=== PATIENT | male | born 1990 | race Caucasian/White ===

== ENCOUNTER 2020-06-19 07:05 | Emergency (ER) | payer MEDICAID, SELFPAY ==
[2020-06-19 07:11] VITALS: BP 126/75; PULSE 87; RESP 18; TEMP 36.9; O2SAT 97; BMI 64.5
--- NOTE | 2020-06-19 07:26 | CTR_ITS ---
PROCEDURE INFORMATION: Exam: CT Abdomen And Pelvis With Contrast Exam date and time: 06/19/2020 7:46 AM Age: 30 years old Clinical indication: Abdominal pain; Generalized; Prior surgery; Surgery date: 6+ months; Surgery type: Appy; Additional info: Abdominal pain, fever TECHNIQUE: Imaging protocol: Computed tomography of the abdomen and pelvis with intravenous contrast. Radiation optimization: All CT scans at this facility use at least one of these dose optimization techniques: automated exposure control; mA and/or kV adjustment per patient size (includes targeted exams where dose is matched to clinical indication); or iterative reconstruction. Contrast material: OMNIPAQUE 300; Contrast volume: 95 ml; Contrast route: INTRAVENOUS (IV); COMPARISON: No relevant prior studies available. RADIATION DOSE METRICS: Total DLP (mGy-cm): 1908.61 FINDINGS: Lungs: No acute findings within the included inferior thorax. Punctate right lower lobe calcified granuloma incidentally noted. Liver: Mild diffuse hepatic steatosis. No hepatomegaly. No focal lesions identified. Gallbladder and bile ducts: Normal. No calcified stones. No ductal dilation. Pancreas: Normal. No ductal dilation. Spleen: Normal. No splenomegaly. Adrenals: Normal. No mass. Kidneys and ureters: There is excreted contrast within the bilateral renal collecting systems and portions of the ureters, limiting evaluation for calculi. No hydronephrosis. Symmetrical renal enhancement with no masses. Stomach and bowel: No obstruction. No inflammatory changes. Appendix: Evidence of appendectomy. Intraperitoneal space: No free air. No significant fluid collection. Vasculature: Unremarkable. No abdominal aortic aneurysm. Lymph nodes: Unremarkable. No enlarged lymph nodes. Bladder: The bladder is minimally filled. No stones. Reproductive: Unremarkable as visualized. Bones/joints: No acute or aggressive osseous lesion. Soft tissues: Unremarkable. CT/CT abdomen pelvis w con* [id number] IMPRESSION: No acute findings. Radiation Dose CTDIVOL = (mGy): DLP = 1908.61 (mGy-cm)
[2020-06-19 07:39] VITALS: BP 137/79; PULSE 90; RESP 18; TEMP 37.2; O2SAT 100
--- NOTE | 2020-06-19 07:47 | ED_ITS ---
HPI - Abdominal Pain General: Chief Complaint: Abdominal Pain Stated Complaint: abd pain Time Seen by Provider: 06/19/20 07:16 History of Present Illness: HPI narrative: This patient is a 30-year-old male who presents today with abdominal pain. He said it started 2 days ago. He says that before he started having the abdominal symptoms he had gone to the dentist to have a tooth checked and they told him he had a fever of 101. He denies feeling like he had a fever and said he checked his own temperature at home and it was normal. He does say though that he has been hot and cold and having sweats. He denies cough or shortness of breath. He denies diarrhea. He has had nausea but no vomiting. He said his pain is mostly located in the left upper quadrant. It never really goes away except for one time when he went about 6 hours without eating. He said he felt fine then but ate some container of yogurt and a couple of mini muffins and the pain came back. The pain seems to start about 30 minutes after he eats anything and sometimes radiates to the right upper quadrant as well. MD elicited complaint: abdominal pain Pertinent past history: constipation Onset (ago): day(s) (2) Pain Consistency: constant Severity: severe Quality: cramping, aching and fullness Radiation: RUQ Migration to: no migration Exacerbating factors: eating Relieving factors: other (Not eating) Associated Symptoms: Reports no associated symptoms, chills, fever(s) (Possibly) and nausea; Denies change in bowel habits and vomiting Review of Systems General: Reports: 10 or more systems reviewed and unremarkable except in HPI and below Const: Reports: fever(s) (Possibly) and chills; Denies: fatigue or malaise Eyes: Denies: change in vision ENMT: Denies: odynophagia Card: Denies: chest pain or swelling of feet/ankles Resp: Denies: dyspnea, productive cough or non-productive cough GI: Reports: abdominal pain and nausea; Denies: vomiting or change in bowel habits : Reports: urinary frequency; Denies: flank pain Musc: Denies: neck pain or back pain Skin/Breast: Denies: rash Neuro: Denies: headache(s), numbness in extremities or weakness in extremities Johnny/Lymph: Denies: easy bruising or easy bleeding PFSH ED PFSH: Medical History Morbid obesity Surgical History H/O circumcision H/O hemorrhoidectomy History of tonsillectomy and adenoidectomy Hx of appendectomy Family History Family/Other Cancer breast cancer Other Anesthesia complication CAD (coronary artery disease) Diabetes Denies family history of Bleeding disorder Social History Smoking and tobacco status: never smoked Alcohol intake: never Household members: family Marital status: Single Current occupational status: disabled History of recent travel: No Physical Exam Const: COMMON NORMALS: no acute distress, patient oriented x3, no limitations and alert GENERAL APPEARANCE: cooperative and comfortable HENMT: HEAD & SCALP: normal to inspection FACE & SINUS: normal facial exam Eye: GENERAL EYE: appearance normal, both eyes and all related structures Neck/C-Spine: COMMON NORMALS: supple, no meningeal signs and no JVD Chest: COMMONS NORMALS: normal inspection of the chest Resp: COMMON NORMALS: normal respiratory effort, No use of accessory muscles and clear to auscultation bilaterally AUSCULTATION: clear to auscultation bilaterally Cardio: COMMON NORMALS: no JVD, regular rate, regular rhythm and No murmurs present (Cardio) RATE: regular rate RHYTHM: regular rhythm GI: COMMON NORMALS: Normal to inspection, nondistended, normoactive bowel sounds present, Soft to palpation and non-tender INSPECTION: Yes normal to inspection AUSCULTATION: Yes normoactive bowel sounds PALPATION: Yes Soft to palpation Back/Pelvis: COMMON NORMALS: thoracic and lumbar spine normal to inspection Extremity: COMMON NORMALS: normal to inspection Neuro: COMMON NORMALS: patient oriented x3, moves all extremities, no focal motor deficits and no sensory deficits noted SENSORIUM/ORIENTATION: Yes alert MENINGEAL SIGNS: Yes no meningeal signs Psych: COMMON NORMALS: mental status grossly normal, cooperative and normal affect Skin: COMMON NORMALS: no rashes or lesions noted and turgor normal GENERAL SKIN EXAM: no rashes or lesions noted and turgor normal Course ED course: Patient had a negative CT scan. Labs were unremarkable. His exam is unremarkable. We discussed that this could be some irritation in his stomach as it is generally the location of most of his pain. He also has worsening of his symptoms shortly after he eats. He was instructed to increase his omeprazole to 40 mg a day and to follow-up with his primary care doctor. He also has a colonoscopy scheduled early next month with Dr. Caicedo and I suggested that he ask about having an upper endoscopy as well. Vital Signs: Vital signs: Vital Signs Temperature 98.7 F 06/19/20 10:00 Pulse Rate 82 06/19/20 10:32 Respiratory Rate 20 H 06/19/20 10:32 Blood Pressure 147/86 06/19/20 10:32 Pulse Oximetry 96 06/19/20 10:32 MDM - Abdominal Pain Lab Data: Labs: Lab Results 06/19/20 06/19/20 06/19/20 Range/Units 07:35 07:35 07:35 WBC 11.1 H (4.0-10.0) 10^3/ uL RBC 4.63 (4.1-5.3) 10^6/u L Hgb 13.1 (11.7-16.6) g/dL Hct 41.4 L (42.0-52.0) % MCV 89.4 (80-94) fL MCH 28.3 (28.0-34.0) pg MCHC 31.6 (30.0-36.0) g/dL RDW 13.2 (12.1-15.1) % Plt Count 280 (130-400) 10^3/c mm MPV 11.6 H (7.4-10.4) fL Neut % (Auto) 63.9 % Lymph % (Auto) 23.9 % [place] % (Auto) 9.8 % Eos % (Auto) 1.7 % Baso % (Auto) 0.4 % Neut # (Auto) 7.10 (1.8-7.7) 10^3/u L Lymph # (Auto) 2.7 (0.8-4.8) 10^3/u L [place] # (Auto) 1.1 H (0.2-0.9) 10^3/u L Eos # (Auto) 0.2 (0.0-0.8) 10^3/u L Baso # (Auto) 0.0 (0.0-0.1) 10^3/u L Nucleated RBC % (a uto) 0 % Nucleated RBCs # 0.0 /100WBC Sodium 138 (136-145) mmol/L Potassium 4.2 (3.5-5.1) mmol/L Chloride 104 (98-107) mmol/L Carbon Dioxide 27 (22-29) mmol/L Anion Gap 11.2 (5-19) BUN 11 (6-20) mg/dL Creatinine 1.0 (0.7-1.2) mg/dL GFR Calculation 86.6 L (90-130) mL/min Glucose 113 (65-115) mg/dL Calculated Osmolal ity 286 (285-295) mOsm/k g Lactic Acid 0.8 (0.5-2.2) mmol/L Calcium 9.4 (8.5-10.5) mg/dL Total Bilirubin 0.3 (0.15-1.2) mg/dL AST 20 (0-40) U/L ALT 30 (0-41) U/L Alkaline Phosphata se 75 (40-130) IU/L Total Protein 7.5 (6.6-8.7) g/dL Albumin 4.0 (3.5-5.2) g/dL Globulin 3.5 (1.3-4.6) g/dL Lipase 18 (13-60) U/L Urine Color (Yellow) Urine Appearance (CLEAR) Urine pH (5-7) Ur Specific Gravit y (1.005-1.030) Urine Protein (Negative) Urine Glucose (UA) (Normal) Urine Ketones (Negative) Urine Blood (Negative) Urine Nitrate (Negative) Urine Bilirubin (Negative) Urine Urobilinogen (Negative) mg/dL Ur Leukocyte Odalys ase (Negative) 06/19/20 Range/Units 08:00 WBC (4.0-10.0) 10^3/ uL RBC (4.1-5.3) 10^6/u L Hgb (11.7-16.6) g/dL Hct (42.0-52.0) % MCV (80-94) fL MCH (28.0-34.0) pg MCHC (30.0-36.0) g/dL RDW (12.1-15.1) % Plt Count (130-400) 10^3/c mm MPV (7.4-10.4) fL Neut % (Auto) % Lymph % (Auto) % [place] % (Auto) % Eos % (Auto) % Baso % (Auto) % Neut # (Auto) (1.8-7.7) 10^3/u L Lymph # (Auto) (0.8-4.8) 10^3/u L [place] # (Auto) (0.2-0.9) 10^3/u L Eos # (Auto) (0.0-0.8) 10^3/u L Baso # (Auto) (0.0-0.1) 10^3/u L Nucleated RBC % (a uto) % Nucleated RBCs # /100WBC Sodium (136-145) mmol/L Potassium (3.5-5.1) mmol/L Chloride (98-107) mmol/L Carbon Dioxide (22-29) mmol/L Anion Gap (5-19) BUN (6-20) mg/dL Creatinine (0.7-1.2) mg/dL GFR Calculation (90-130) mL/min Glucose (65-115) mg/dL Calculated Osmolal ity (285-295) mOsm/k g Lactic Acid (0.5-2.2) mmol/L Calcium (8.5-10.5) mg/dL Total Bilirubin (0.15-1.2) mg/dL AST (0-40) U/L ALT (0-41) U/L Alkaline Phosphata se (40-130) IU/L Total Protein (6.6-8.7) g/dL Albumin (3.5-5.2) g/dL Globulin (1.3-4.6) g/dL Lipase (13-60) U/L Urine Color Yellow (Yellow) Urine Appearance Clear (CLEAR) Urine pH 6.5 (5-7) Ur Specific Gravit y 1.015 (1.005-1.030) Urine Protein Neg (Negative) Urine Glucose (UA) Norm (Normal) Urine Ketones Negative (Negative) Urine Blood Neg (Negative) Urine Nitrate Negative (Negative) Urine Bilirubin Neg (Negative) Urine Urobilinogen Norm (Negative) mg/dL Ur Leukocyte Odalys ase Negative (Negative) Discharge Plan Discharge Patient Disposition: Home Clinical Impression: Abdominal pain Qualifiers: Abdominal location: left lower quadrant Qualified Code(s): R10.32 - Left lower quadrant pain Condition: Stable Prescriptions: No Action effexor PO RF: 0 All Day Allergy (cetirizine) 10 mg capsule 10 mg PO DAILY RF: 0 omeprazole 20 mg capsule,delayed release(DR/EC) 20 mg PO DAILY RF: 0 hydrocortisone acetate 25 mg suppository 25 mg [place] DAILY PRN (Reason: hemorrhoids) Qty: 12 RF: 0 Metamucil 3.4 gram/5.4 gram powder 1 tbsp PO DAILY Qty: 660 RF: 0 docusate sodium [Colace] 100 mg capsule 100 mg PO BID Qty: 60 RF: 0 lactulose 10 gram/15 mL solution 10 gm PO DAILY Qty: 473 RF: 0 ondansetron 4 mg tablet,disintegrating 4 mg PO Q8H Qty: 30 RF: 0 Carafate 100 mg/mL suspension 1 gm PO Q6H Qty: 420 RF: 0 Discharge Orders: Discharge Order (Routine); Ordered 06/19/20 Ordered By: Jaz Martins Referrals: Tawny Cazares APN [Primary Care Provider] - Discharge Diet: Clear Liquid Discharge Activity: Resume usual activity Patient Instructions: Abdominal Pain (ED) Activity Restrictions/Additional Instructions: Stick to a clear liquid diet for the next 24 hours. After that if you are feeling better you can increase to a bland diet. If your pain continues even with the clear liquid diet and return to the ED for further evaluation. Follow- up with your doctor or Dr. Caicedo for further evaluation if symptoms continue. Discharge Date/Time: 06/19/20 10:29 Coding Level of Care Code ED Deboner for Deborah Fwd Exam Comprehensive
[2020-06-19 07:48] LABS: Basophils % 0.4 %; Eosinophils # 0.2 10^3/uL (0.0-0.8); Eosinophils % 1.7 %; Hematocrit 41.4 % (42.0-52.0); Hemoglobin 13.1 g/dL (11.7-16.6); Lymphocytes # 2.7 10^3/uL (0.8-4.8); Lymphocytes % 23.9 %; Mean Corpuscular HGB Conc 31.6 g/dL (30.0-36.0); Mean Corpuscular Hemoglobin 28.3 pg (28.0-34.0); Mean Corpuscular Volume 89.4 fL (80-94); Mean Platelet Volume 11.6 fL (7.4-10.4); Monocytes # 1.1 10^3/uL (0.2-0.9); Monocytes % 9.8 %; Neutrophils % 63.9 %; Nucleated Red Blood Cells % 0 %; Platelet Count 280 10^3/cmm (130-400); Red Blood Count 4.63 10^6/uL (4.1-5.3); Red Cell Distribution Width 13.2 % (12.1-15.1); White Blood Count 11.1 10^3/uL (4.0-10.0)
[2020-06-19 08:07] VITALS: BP 131/79; O2SAT 100
[2020-06-19 08:14] LABS: Lactic Sepsis W/Reflex 0.8 mmol/L (0.5-2.2)
[2020-06-19] MEDS: iohexol 300 mg/mL 100 mL Btl IV (08:14)
[2020-06-19 08:15] LABS: Alanine Aminotransferase 30 U/L (0-41); Alkaline Phosphatase 75 IU/L (40-130); Anion Gap 11.2 (5-19); Aspartate Amino Transferase 20 U/L (0-40); Blood Urea Nitrogen 11 mg/dL (6-20); Calcium 9.4 mg/dL (8.5-10.5); Carbon Dioxide 27 mmol/L (22-29); Chloride 104 mmol/L (98-107); Globulin 3.5 g/dL (1.3-4.6); Glomerular Filtration Rate 86.6 mL/min (90-130); Glucose 113 mg/dL (65-115); Lipase 18 U/L (13-60); Osmolality Calculated 286 mOsm/kg (285-295); Potassium 4.2 mmol/L (3.5-5.1); Sodium 138 mmol/L (136-145); Total Bilirubin 0.3 mg/dL (0.15-1.2); Total Protein 7.5 g/dL (6.6-8.7)
[2020-06-19 09:36] LABS: Add Urine Microscopic? NO
[2020-06-19 09:59] VITALS: BP 161/96; PULSE 75; RESP 18; TEMP 37.1; O2SAT 99
[2020-06-19 09:59] LABS: Bilirubin Urine Neg (Negative); Blood Urine Neg (Negative); Glucose Urine UA Norm (Normal); Ketones Urine Negative (Negative); Leukocyte Esterase Urine Negative (Negative); Nitrate Urine Negative (Negative); Protein Urine Neg (Negative); Specific Gravity, Urine 1.015 (1.005-1.030); Urine Appearance Clear (CLEAR); Urine Color Yellow (Yellow); Urobilinogen Urine Norm (Negative); pH Urine 6.5 (5-7)
[2020-06-19 10:00] VITALS: BP 161/96; PULSE 81; RESP 18; TEMP 37.1; O2SAT 100
[2020-06-19 10:32] VITALS: BP 147/86; PULSE 82; RESP 20; O2SAT 96
== END 2020-06-19 10:29 | disposition home or self-care (01) ==
PROVIDERS: Emergency Provider Emergency Medicine; PCP Nurse Practitioner
DX: R10.32 Left lower quadrant pain (principal)
CPT/HCPCS: 12345; 74177; 80053; 81003; 83605; 83690; 85025; 99283; Q9967

== ENCOUNTER 2020-06-20 05:25 | Emergency (ER) | payer MEDICAID, SELFPAY ==
[2020-06-20 05:34] VITALS: BP 155/106; RESP 24; TEMP 36.9; O2SAT 100; BMI 65.3
[2020-06-20] MEDS: ondansetron 2 mg/ML SDV 2 mL 4 MG IVP (06:30)
[2020-06-20 06:40] VITALS: RESP 18; O2SAT 100
[2020-06-20] MEDS: morphine 4 mg/mL SDV 1 mL IVP (06:40)
[2020-06-20 06:44] LABS: Basophils % 0.2 %; Eosinophils # 0.1 10^3/uL (0.0-0.8); Eosinophils % 0.8 %; Hematocrit 39.9 % (42.0-52.0); Hemoglobin 12.7 g/dL (11.7-16.6); Lymphocytes # 1.7 10^3/uL (0.8-4.8); Lymphocytes % 13.8 %; Mean Corpuscular HGB Conc 31.8 g/dL (30.0-36.0); Mean Corpuscular Hemoglobin 28.2 pg (28.0-34.0); Mean Corpuscular Volume 88.7 fL (80-94); Mean Platelet Volume 11.7 fL (7.4-10.4); Monocytes # 0.9 10^3/uL (0.2-0.9); Monocytes % 7.5 %; Neutrophils # 9.56 10^3/uL (1.8-7.7); Neutrophils % 77.4 %; Nucleated Red Blood Cells % 0 %; Platelet Count 269 10^3/cmm (130-400); Red Cell Distribution Width 13.1 % (12.1-15.1); White Blood Count 12.4 10^3/uL (4.0-10.0)
[2020-06-20 06:53] LABS: Alanine Aminotransferase 30 U/L (0-41); Albumin Level 4.1 g/dL (3.5-5.2); Alkaline Phosphatase 80 IU/L (40-130); Anion Gap 14.9 (5-19); Aspartate Amino Transferase 18 U/L (0-40); Blood Urea Nitrogen 9 mg/dL (6-20); Calcium 9.3 mg/dL (8.5-10.5); Carbon Dioxide 24 mmol/L (22-29); Chloride 102 mmol/L (98-107); Globulin 3.4 g/dL (1.3-4.6); Glomerular Filtration Rate 97.8 mL/min (90-130); Glucose 113 mg/dL (65-115); Lipase 14 U/L (13-60); Osmolality Calculated 283 mOsm/kg (285-295); Potassium 3.9 mmol/L (3.5-5.1); Sodium 137 mmol/L (136-145); Total Bilirubin 0.6 mg/dL (0.15-1.2); Total Protein 7.5 g/dL (6.6-8.7)
--- NOTE | 2020-06-20 07:07 | W.ED.ABDPA2 ---
HPI - Abdominal Pain General: Chief Complaint: Abdominal Pain Stated Complaint: abd pain Time Seen by Provider: 06/20/20 07:06 History of Present Illness: HPI narrative: Patient is a 30-year-old male who comes to the ED with abdominal pain and nausea. Symptoms started approximately 2 to 3 days ago. Patient was seen here in the ED yesterday June [address] the abdomen were performed and there is no acute findings on the CT image. Patient was told to go on a clear liquid diet to stop the Pepto-Bismol. Patient says he did not stop taking the Pepto-Bismol but he has stuck to his clear liquid diet denies that he had increased abdominal pain or nausea decided to come back into the ED for reevaluation. He rates his abdominal pain 5 and his nausea 6 out of 10. He states that his nausea is worse than his abdominal pain. He says he is some problems with constipation over the past 2 months states that his last bowel movement he had was last night and it was hard and skinny in appearance. Patient does have planned endoscopic and colonoscopy on July 08. Denies any fever, chills, diarrhea, emesis, dysuria or hematuria. Associated Symptoms: Reports nausea; Denies chills, constipation, diarrhea, dysuria, fever(s), hematochezia, hematuria and vomiting Review of Systems Const: Denies: fever(s), chills or fatigue Eyes: Denies: change in vision or eye discomfort ENMT: Denies: throat pain, odynophagia, nasal discharge or nasal congestion Card: Denies: chest pain, palpitations, edema, swelling of feet/ankles, dyspnea on exertion or orthopnea Resp: Denies: dyspnea, productive cough or non-productive cough GI: Reports: abdominal pain and nausea; Denies: vomiting, diarrhea, constipation or hematochezia : Denies: flank pain, difficulty urinating, dysuria or hematuria Musc: Denies: neck pain, back pain or extremity swelling Skin/Breast: Denies: rash or new lesions Neuro: Denies: headache(s), numbness in extremities or weakness in extremities [facility] ED PFSH: Medical History Morbid obesity Surgical History H/O circumcision H/O hemorrhoidectomy History of tonsillectomy and adenoidectomy Hx of appendectomy Family History Family/Other Cancer breast cancer Other Anesthesia complication CAD (coronary artery disease) Diabetes Denies family history of Bleeding disorder Social History Smoking and tobacco status: never smoked Alcohol intake: never Household members: family Marital status: Single Current occupational status: disabled History of recent travel: No Physical Exam Const: COMMON NORMALS: no acute distress, patient oriented x3 and alert GENERAL APPEARANCE: cooperative and comfortable NUTRITIONAL APPEARANCE: obese morbidly obese HENMT: COMMON NORMALS: normocephalic HEAD & SCALP: normocephalic MOUTH: Normal oral and palatal mucosa present THROAT: posterior oropharynx normal and uvula midline Eye: COMMON NORMALS: Equal, round and reactive pupils present PUPIL: Yes Equal, round and reactive pupils present Neck/C-Spine: COMMON NORMALS: supple GENERAL: Yes normal visual inspection Resp: COMMON NORMALS: normal respiratory effort, No retractions, No use of accessory muscles and clear to auscultation bilaterally AUSCULTATION: clear to auscultation bilaterally Cardio: COMMON NORMALS: regular rate, regular rhythm, S1 normal heart sound present, S2 normal heart sound present, No gallops present (Cardio), No clicks present (Cardio), No murmurs present (Cardio) and Peripheral pulses 2+ throughout RATE: regular rate RHYTHM: regular rhythm HEART SOUNDS: S1 normal heart sound present and S2 normal heart sound present PERIPHERAL PULSES: Peripheral pulses 2+ throughout GI: COMMON NORMALS: Normal to inspection, nondistended, normoactive bowel sounds present, Soft to palpation and no masses INSPECTION: Yes central obesity PALPATION: Yes Soft to palpation and Yes Tenderness to palpation present (GI) (mild) Details: LLQ and LUQ : COMMON NORMALS: Yes no CVA tenderness BLADDER/KIDNEY EXAM: Yes no CVA tenderness Back/Pelvis: COMMON NORMALS: no CVA tenderness Extremity: COMMON NORMALS: normal to inspection Neuro: COMMON NORMALS: patient oriented x3 SENSORIUM/ORIENTATION: Yes alert GAIT: Yes Normal gait present Skin: COMMON NORMALS: no rashes or lesions noted GENERAL SKIN EXAM: no rashes or lesions noted and dry skin Course Reevaluation(s): Reevaluation #1: Patient was given morphine and Zofran via IV and his symptoms improved greatly. He rates his nausea is a 2 out of 10 and his abdominal pain is a 1 out of 10. Vital Signs: Vital signs: Vital Signs Temperature 98.5 F 06/20/20 05:34 Pulse Rate 83 06/20/20 08:38 Respiratory Rate 18 06/20/20 08:38 Blood Pressure 137/73 06/20/20 08:38 Pulse Oximetry 98 06/20/20 08:38 MDM - Abdominal Pain MDM Narrative: Medical decision making narrative: Patient is a 30-year-old male who comes to the ED with some abdominal pain and nausea. Patient was seen yesterday on June [address] of the abdomen were performed and showed no acute findings. Today patient's labs are relatively unchanged compared to yesterday's. He has a scheduled colonoscopy and endoscopy on July 08. Patient's pain and nausea improved while here in the ED after treatment. Patient was discharged with abdominal pain and sent home with a prescription for Carafate and Zofran. Follow-up with your PCP in 7 to 10 days for reevaluation. Return to ED precautions given. Patient understood and agree with plan. Lab Data: Attestation: I reviewed the patient's lab results. Labs: Lab Results 06/20/20 06/20/20 Range/Units 06:15 06:15 WBC 12.4 H (4.0-10.0) 10^3/ uL RBC 4.50 (4.1-5.3) 10^6/u L Hgb 12.7 (11.7-16.6) g/dL Hct 39.9 L (42.0-52.0) % MCV 88.7 (80-94) fL MCH 28.2 (28.0-34.0) pg MCHC 31.8 (30.0-36.0) g/dL RDW 13.1 (12.1-15.1) % Plt Count 269 (130-400) 10^3/c mm MPV 11.7 H (7.4-10.4) fL Neut % (Auto) 77.4 % Lymph % (Auto) 13.8 % [place] % (Auto) 7.5 % Eos % (Auto) 0.8 % Baso % (Auto) 0.2 % Neut # (Auto) 9.56 H (1.8-7.7) 10^3/u L Lymph # (Auto) 1.7 (0.8-4.8) 10^3/u L [place] # (Auto) 0.9 (0.2-0.9) 10^3/u L Eos # (Auto) 0.1 (0.0-0.8) 10^3/u L Baso # (Auto) 0.0 (0.0-0.1) 10^3/u L Nucleated RBC % (a uto) 0 % Nucleated RBCs # 0.0 /100WBC Sodium 137 (136-145) mmol/L Potassium 3.9 (3.5-5.1) mmol/L Chloride 102 (98-107) mmol/L Carbon Dioxide 24 (22-29) mmol/L Anion Gap 14.9 (5-19) BUN 9 (6-20) mg/dL Creatinine 0.9 (0.7-1.2) mg/dL GFR Calculation 97.8 (90-130) mL/min Glucose 113 (65-115) mg/dL Calculated Osmolal ity 283 L (285-295) mOsm/k g Calcium 9.3 (8.5-10.5) mg/dL Total Bilirubin 0.6 (0.15-1.2) mg/dL AST 18 (0-40) U/L ALT 30 (0-41) U/L Alkaline Phosphata se 80 (40-130) IU/L Total Protein 7.5 (6.6-8.7) g/dL Albumin 4.1 (3.5-5.2) g/dL Globulin 3.4 (1.3-4.6) g/dL Lipase 14 (13-60) U/L Discharge Plan Discharge Patient Disposition: Home Clinical Impression: Abdominal pain Qualifiers: Abdominal location: left lower quadrant Qualified Code(s): R10.32 - Left lower quadrant pain Constipation Qualifiers: Constipation type: unspecified constipation type Qualified Code(s): K59.00 - Constipation, unspecified Condition: Stable Prescriptions: New ondansetron 4 mg tablet,disintegrating 4 mg PO Q8H Qty: 30 RF: 0 Carafate 100 mg/mL suspension 1 gm PO Q6H Qty: 420 RF: 0 No Action effexor PO RF: 0 All Day Allergy (cetirizine) 10 mg capsule 10 mg PO DAILY RF: 0 omeprazole 20 mg capsule,delayed release(DR/EC) 20 mg PO DAILY RF: 0 hydrocortisone acetate 25 mg suppository 25 mg [place] DAILY PRN (Reason: hemorrhoids) Qty: 12 RF: 0 Metamucil 3.4 gram/5.4 gram powder 1 tbsp PO DAILY Qty: 660 RF: 0 docusate sodium [Colace] 100 mg capsule 100 mg PO BID Qty: 60 RF: 0 lactulose 10 gram/15 mL solution 10 gm PO DAILY Qty: 473 RF: 0 Discharge Orders: Discharge Order (Routine); Ordered 06/20/20 Ordered By: Sammy Jovel Referrals: Tawny Cazares APN [Primary Care Provider] - Discharge Diet: Advance as tolerated and Clear Liquid Discharge Activity: Resume usual activity Patient Instructions: Abdominal Pain (ED) Activity Restrictions/Additional Instructions: Follow-up with medical provider as directed in 7-10 days. Take medications as prescribed. Go to your previously scheduled endoscopy and colonoscopy procedure on July 08. Return to the ER or your medical provider if condition worsens. Please read and understand discharge instructions. If any questions, please ask. Discharge Date/Time: 06/20/20 08:38 Coding Level of Care Code ED Shipyard Laborer for Shelbyg Fwd Exam Comprehensive
[2020-06-20 08:10] VITALS: BP 124/74; PULSE 79; O2SAT 95
[2020-06-20 08:38] VITALS: BP 137/73; PULSE 83; RESP 18; O2SAT 98
== END 2020-06-20 08:38 | disposition home or self-care (01) ==
PROVIDERS: Emergency Medicine; Emergency Provider Physician Assistant; PCP Nurse Practitioner
DX: R10.32 Left lower quadrant pain (principal); K59.00 Constipation, unspecified
CPT/HCPCS: 12345; 80053; 83690; 85025; 96374; 96375; 99282; 99283; J2270; J2405

== ENCOUNTER → 2020-07-02 12:11 | Outpatient (BNVA) | payer MEDICAID, SELFPAY | PROVIDERS: PCP Nurse Practitioner; Visit Provider Surgery | DX: Z11.59 Encounter for screening for other viral diseases (principal) | CPT/HCPCS: 87635 ==

== ENCOUNTER 2020-07-06 07:01 | Day surgery (SDC) | payer MEDICAID, SELFPAY ==
[2020-07-06 07:12] VITALS: BP 175/104; PULSE 73; RESP 18; TEMP 531.1; TEMP 988; O2SAT 100
[2020-07-06] MEDS: sodium chloride 0.9% 1,000 ML 30 ML IV (07:15)
[2020-07-06] MEDS: sodium chloride 0.9% 500 ML 999 ML IV (07:34)
--- NOTE | 2020-07-06 07:34 | ANES.PREANE2 ---
Pre-Anesthetic Assessment Pre-Anesthetic Assessment: Height/Weight: Height 1.68 m Weight 185.973 kg Temp Pulse Resp BP Pulse Ox 988.0 F H 73 18 175/104 100 07/06/20 07:12 07/06/20 07:12 07/06/20 07:12 07/06/20 07:12 07/06/20 07:12 Preop Diagnosis: constipation Proposed Procedure: Operation Date: 07/06/20 08:00 Proposed Procedures s EGD(Not Applicable) - Reymundo Caicedo MD p EGD Colonoscopy 06356 K59.00(Not Applicable) - Reymundo Caicedo MD Familial anesthetic complications: None Was Beta Eloise taken within 24 hours: N/A Last intake: Intake Last Liquid Date 07/05/20 Last Liquid Time 23:30 Last Solid Date 07/04/20 Last Solid Time 19:00 Social: Social History: No alcohol and No tobacco Exam: Pre-Anes Outpt Exam: alert, oriented x 3, clear to auscultation bilaterally and regular rate & rhythm Airway: Cervical ROM: WNL (neck pain with certain movements, so can't stay in same positions for extended periods) MP: 2 Dentition: Other (missing) Additional comments: Full shafer Pulmonary: Pulmonary: Sleep apnea (doesn't wear his cpap) Comments: hx pneumonia CV/HEM: Comments: can walk 4 city blocks GI: GI: GERD Metabolic: Metabolic: Morbid obesity (super MO) Anesthetic Plan: ASA status: 2 Anesthesia: MAC Risk of > 500 ml blood loss (7ml/kg in children): No Meds/Allergies Current Medications: Current Medications Generic Name Dose Route Start Last Admin Trade Name Freq PRN Reason Stop Dose Admin Sodium Chloride 500 mls @ 999 mls /hr 07/06/20 07:04 07/06/20 07:34 Sodium Chloride 0.9% IV 999 mls/hr .Q31M PRN Administration HYPOTENSION PFSH Anesthesia PFSH: Medical History (Updated 06/27/20 @ 00:00 by ) Morbid obesity Surgical History H/O circumcision H/O hemorrhoidectomy History of tonsillectomy and adenoidectomy Hx of appendectomy Family History Family/Other Cancer breast cancer Other Anesthesia complication CAD (coronary artery disease) Diabetes Denies family history of Bleeding disorder Social History Smoking and tobacco status: never smoked Alcohol intake: never Household members: family Marital status: Single Current occupational status: disabled History of recent travel: No Data Anesthesia Cardiac Studies: No Data to Display
--- NOTE | 2020-07-06 07:44 | W.PM.OPSUD ---
Surgery/Procedure H&P Update DATE OF PROCEDURE: July 06, 2020 DATE H&P PERFORMED: 06/11/20 H&P UPDATE INFORMATION: I have reviewed H&P completed within last 30 days, I have examined patient prior to procedure and No changes to prior documentation PREOP DIAGNOSIS: constipation PLANNED PROCEDURE: Operation Date: 07/06/20 08:00 Proposed Procedures s EGD(Not Applicable) - Reymundo Caicedo MD p EGD Colonoscopy [address]32 K59.00(Not Applicable) - Reymundo Caicedo MD
[2020-07-06 09:18] VITALS: BP 131/96; PULSE 88; RESP 18; TEMP 37.1; O2SAT 100
[2020-07-06 09:32] VITALS: BP 143/96; PULSE 98; RESP 18; O2SAT 98
--- NOTE | 2020-07-06 09:50 | ANE.PACU2 ---
Inpatient post-anesthesia follow up: Airway intact: Yes Vital signs: Temperature 98.7 F Pulse Rate 98 Respiratory Rate 18 Blood Pressure 143/96 Pulse Oximetry 98 Oxygen Delivery Me thod Room Air Oxygen Flow Rate 3 Fraction of Inspir ed Oxygen Hydration adequate: Yes Nausea and vomiting: No Pain level: 1 Mental status: Baseline
== END 2020-07-06 09:50 | disposition home or self-care (01) ==
PROVIDERS: PCP Nurse Practitioner; Visit Provider Surgery
PROC: 0DJ08ZZ Inspection of Upper Intestinal Tract, Via Natural or Artificial Opening Endoscopic (ICD-10-PCS; CPT 43235; principal; 2020-07-06 08:00)
PROC: 0DJD8ZZ Inspection of Lower Intestinal Tract, Via Natural or Artificial Opening Endoscopic (ICD-10-PCS; CPT 45378; 2020-07-06 08:00)
DX: K59.00 Constipation, unspecified (principal); K29.70 Gastritis, unspecified, without bleeding; G47.30 Sleep apnea, unspecified; K21.9 Gastro-esophageal reflux disease without esophagitis; E66.01 Morbid (severe) obesity due to excess calories; Z68.44 Body mass index [BMI] 60.0-69.9, adult
CPT/HCPCS: 12345; 43239; 45378; 88305; J2704; J7030; J7040

== ENCOUNTER 2020-10-31 11:09 | Emergency (ER) | payer MEDICAID, SELFPAY ==
[2020-10-31 11:17] VITALS: BP 150/100; PULSE 95; RESP 18; TEMP 36.6; O2SAT 97; BMI 67.3
--- NOTE | 2020-10-31 11:33 | ED_ITS ---
HPI - Psych General: Chief Complaint: Nausea/Vomiting/Diarrhea Stated Complaint: PSYCH RELATED SYMPTOMS Time Seen by Provider: 10/31/20 11:15 Source: patient Mode of arrival: ambulatory Limitations: no limitations History of Present Illness: HPI Narrative: 30-year-old male who states that he has been on Effexor for years and has taken himself off of it. He states that since then he has been having withdrawal symptoms including nausea and difficulty sleeping. He states he has taken Zofran in the past and it helped him tremendously. He states he would like a prescription for Zofran. He denies any suicidal or homicidal ideations. He states he just been slightly depressed. He denies any worsening improving factors besides the Zofran. Associated symptoms: Deny depression Review of Systems Const: Denies: fever(s), chills, body aches or change in appetite Eyes: Denies: blurry vision or eye discomfort ENMT: Denies: throat pain or dental pain Card: Denies: chest pain Resp: Denies: dyspnea GI: Reports: nausea : Denies: dysuria Musc: Denies: neck pain or back pain Skin/Breast: Denies: rash Neuro: Denies: headache(s) Psych: Denies: depression Johnny/Lymph: Denies: easy bruising All/Imm: Denies: urticaria PFSH ED PFSH: Medical History (Updated 10/31/20 @ 11:37 by Sebastian Stewart MD) Morbid obesity Surgical History H/O circumcision H/O esophagogastroduodenoscopy (07/06/20) H/O hemorrhoidectomy History of tonsillectomy and adenoidectomy Hx of appendectomy Status post colonoscopy (07/06/20) Family History Family/Other Cancer breast cancer Other Anesthesia complication CAD (coronary artery disease) Diabetes Denies family history of Bleeding disorder Social History Smoking and tobacco status: never smoked Alcohol intake: never Household members: family Marital status: Single Current occupational status: disabled History of recent travel: No Physical Exam Const: COMMON NORMALS: no acute distress, patient oriented x3 and healthy appearing HENMT: COMMON NORMALS: normocephalic and atraumatic HEAD & SCALP: normocephalic and atraumatic Eye: COMMON NORMALS: Equal, round and reactive pupils present and EOMs intact bilaterally PUPIL: Yes Equal, round and reactive pupils present Neck/C-Spine: COMMON NORMALS: full ROM and supple Chest: COMMONS NORMALS: normal inspection of the chest and normal palpation of entire chest wall Resp: COMMON NORMALS: normal respiratory effort, No retractions, No use of accessory muscles and clear to auscultation bilaterally AUSCULTATION: clear to auscultation bilaterally Cardio: COMMON NORMALS: regular rate, regular rhythm and No murmurs present (Cardio) RATE: regular rate RHYTHM: regular rhythm GI: COMMON NORMALS: Normal to inspection, nondistended, normoactive bowel sounds present, Soft to palpation, non-tender and no masses PALPATION: Yes Soft to palpation Extremity: COMMON NORMALS: normal to inspection and full ROM Neuro: COMMON NORMALS: patient oriented x3, moves all extremities and no focal motor deficits Psych: COMMON NORMALS: mental status grossly normal, Normal thought process present and cooperative THOUGHT PROCESS: Normal thought process present Skin: COMMON NORMALS: no rashes or lesions noted and no wounds GENERAL SKIN EXAM: no rashes or lesions noted MDM - Psych MDM Narrative: Medical decision making narrative: 30-year-old male who is here having nausea along with insomnia. He is requesting a prescription for Zofran as he is taken in the past and has helped him. He is to follow-up his PCP or [facility] for his depression. He denies any homicidal or suicidal ideation and I do not believe that he requires inpatient admission. He states if he gets worse he is to return. He understands agrees plan. Discharge Plan Discharge Patient Disposition: Home Clinical Impression: Insomnia Nausea & vomiting Qualifiers: Vomiting type: unspecified Vomiting Intractability: non-intractable Qualified Code(s): R11.2 - Nausea with vomiting, unspecified Condition: Stable Prescriptions: New ondansetron 4 mg tablet,disintegrating 4 mg PO Q6H PRN (Reason: nausea and vomiting) Qty: 14 RF: 2 No Action effexor 150 mg PO DAILY RF: 0 All Day Allergy (cetirizine) 10 mg capsule 10 mg PO DAILY RF: 0 omeprazole 20 mg capsule,delayed release(DR/EC) 20 mg PO DAILY RF: 0 lactulose 10 gram/15 mL solution See Rx Instructions .ROUTE .COMPLEX Qty: 473 RF: 0 Discharge Orders: Discharge ED (Routine); Ordered 10/31/20 Ordered By: Sebastian Stewart Referrals: Alston,LAUREN Elliott [Primary Care Provider] - 1-3 days Discharge Diet: Advance as tolerated Discharge Activity: Resume usual activity Patient Instructions: Acute Nausea and Vomiting (ED) Coding Level of Care Code ED Instant Powder Supervisor for Shelbyg Fwd Exam Comprehensive
[2020-10-31 11:48] VITALS: PULSE 84; RESP 18; O2SAT 97
[2020-10-31] MEDS: ondansetron 4 MG Tablet PO (11:52)
== END 2020-10-31 11:48 | disposition home or self-care (01) ==
PROVIDERS: Emergency Provider Emergency Medicine; PCP Nurse Practitioner Family
DX: G47.00 Insomnia, unspecified (principal); R11.2 Nausea with vomiting, unspecified
CPT/HCPCS: 12345; 99281; 99282; Q0162

== ENCOUNTER 2020-11-01 05:17 | Inpatient (IN) | payer MEDICAID, SELFPAY ==
[2020-11-01 05:23] VITALS: BP 143/91; PULSE 78; RESP 16; TEMP 36.9; O2SAT 97; BMI 66.5
--- NOTE | 2020-11-01 05:46 | XRR_ITS ---
PROCEDURE INFORMATION: Exam: XR Chest, 1 View Exam date and time: 11/01/2020 6:02 AM Age: 30 years old Clinical indication: Chest pain; Type not specified; Additional info: Cp TECHNIQUE: Imaging protocol: XR of the chest Views: 1 view. COMPARISON: CR Chest 2 views* [id number] 11/11/2017 5:20 PM FINDINGS: Lungs: Unremarkable. No consolidation. Pleural spaces: Unremarkable. No pleural effusion. No pneumothorax. Heart/Mediastinum: Similar cardiomediastinal silhouette. Bones/joints: Unremarkable. XR/XR chest 1V portable [id number] IMPRESSION: 1. No focal consolidation.
--- NOTE | 2020-11-01 05:46 | ECG_ITS ---
[facility] Test Date: 2020-11-01 Pat Name: Cj Myles Department: Room: Gender: Male Yard Pilot: : 1990 Requested By: Elie Christianson Order Number: [id number] Dawn MD: Ken Peoples M.D. Measurements Intervals [place] Rate: 74 P: 38 IN: 197 QRS: 77 QRSD: 103 T: -1 QT: 381 QTc: 425 Interpretive Statements SINUS RHYTHM ABNORMAL QRS-T ANGLE [QRS-T AXIS DIFFERENCE > 60] No previous ECG available for comparison Electronically Signed On 11-01-2020 17:08:44 HEALTH POLICY NURSE by Ken Peoples M.D. [email or web address]
--- NOTE | 2020-11-01 05:49 | ED_ITS ---
Documented by User: Elie Polanco DO 11/01/20 06:47 HPI - Psych General: Chief Complaint: Psychiatric Symptoms Stated Complaint: NOT FEELING WELL Time Seen by Provider: 11/01/20 05:29 History of Present Illness: HPI Narrative: 30-year-old male with a history of depression. He presents not feeling well. He was here about 12 hours ago with similar complaints. At that point he noted he was nonsuicidal. He returns stating that he could be suicidal, and that he has 2 separate plans. He did not elaborate on this. He has a myriad of other complaints listing nausea, chest discomfort, belly discomfort, and muscle cramping particularly in the right arm. He had recently tried to come off his Effexor, and had been off of about a week. He decided earlier this morning that this was probably his problem and took an Effexor but then became anxious about taking it with Zofran. He has requested NPU admission for stabilization. MD complaint: suicidal ideation and feels depressed Onset (ago): day(s) Duration: constant History of same: Yes Relieving factors: none Exacerbating factors: none Context: not taking psychiatric medications Associated psychiatric symptoms: depression and suicidal ideation Associated symptoms: Reports depression; Deny visual hallucinations or homicidal ideation If self harm: admits thoughts of self harm and has plan Review of Systems Const: Denies: fever(s) Eyes: Reports: change in vision ENMT: Denies: odynophagia, dental pain or sinus pain Card: Reports: chest pain and palpitations; Denies: irregular heart rhythm or edema Resp: Reports: dyspnea; Denies: productive cough, non-productive cough or wheezing GI: Reports: nausea; Denies: abdominal pain or vomiting : Denies: difficulty urinating, urinary frequency or hematuria Musc: Denies: neck pain or back pain Skin/Breast: Denies: rash or erythema Neuro: Reports: dizziness; Denies: headache(s), vertigo or confusion Psych: Reports: depression; Denies: visual hallucinations or homicidal ideation PFS ED PFSH: Medical History (Updated 11/01/20 @ 16:00 by Richard Romero DO) Morbid obesity Surgical History H/O circumcision H/O esophagogastroduodenoscopy (07/06/20) H/O hemorrhoidectomy History of tonsillectomy and adenoidectomy Hx of appendectomy Status post colonoscopy (07/06/20) Family History Family/Other Cancer breast cancer Other Anesthesia complication CAD (coronary artery disease) Diabetes Denies family history of Bleeding disorder Social History Smoking and tobacco status: never smoked Alcohol intake: never Household members: family Marital status: Single Current occupational status: disabled History of recent travel: No Physical Exam Const: GENERAL APPEARANCE: cooperative, comfortable and disheveled ORIENTATION/CONSCIOUSNESS: Yes oriented to person, Yes oriented to place and Yes oriented to time HENMT: COMMON NORMALS: normocephalic, external ears normal and Normal external nose present HEAD & SCALP: normocephalic FACE & SINUS: normal facial exam NOSE: Normal external nose present and No nasal discharge present EXTERNAL EAR: Yes external ears normal Eye: COMMON NORMALS: Equal, round and reactive pupils present, EOMs intact bilaterally and conjunctivae normal EYELID: eyelids normal CONJUNCTIVA: Yes conjunctivae normal PUPIL: Yes Equal, round and reactive pupils present Neck/C-Spine: GENERAL: No tracheal deviation Chest: COMMONS NORMALS: normal inspection of the chest CHEST: No tenderness Resp: COMMON NORMALS: clear to auscultation bilaterally EFFORT & INSPECTION: No tachypneic, No respiratory distress, No retractions, No uses accessory muscles and No tracheal deviation AUSCULTATION: clear to auscultation bilaterally, no rhonchi, no wheezes and lung sounds not diminished Cardio: COMMON NORMALS: regular rate and regular rhythm RATE: regular rate RHYTHM: regular rhythm HEART SOUNDS: no murmurs PERIPHERAL PULSES: radial pulses present GI: INSPECTION: No abdominal distension AUSCULTATION: No Hyperactive bowel sounds present and No Hypoactive bowel sounds present PALPATION: No Guarding due to palpation present (GI) and No Rigid due to palpation PERCUSSION: no dullness to percussion and no tympanic to percussion Neuro: SENSORIUM/ORIENTATION: Yes oriented to person, Yes oriented to place and Yes oriented to time Psych: COMMON NORMALS: cooperative APPEARANCE: Yes unkempt ATTITUDE: Yes calm and Yes bizarre ACTIVITY/MOTOR BEHAVIOR: Yes psychomotor slowing SPEECH: Yes slow MOOD & AFFECT: Yes depressed mood and Yes Flat affect present THOUGHT PROCESS: disorganized THOUGHT CONTENT: Yes Suicidality present ATTENTION/CONCENTRATION: Yes attention grossly intact and Yes concentration grossly intact MEMORY/COGNITION: Yes memory grossly intact INSIGHT: Limited insight present (Psych) JUDGEMENT: Limited judgement present (Psych) Skin: COMMON NORMALS: no rashes or lesions noted GENERAL SKIN EXAM: no rashes or lesions noted MDM - Psych MDM Narrative: Medical decision making narrative: 80-year-old depressed male with some thoughts of suicide. He is requesting n.p.u. admission. This is his second visit in less than 24 hours. Labs are pending for medical stabilization. He will be checked out to Dr. Romero for follow-up. Lab Data: Labs: Lab Results 11/01/20 11/01/20 11/01/20 Range/Units 06:15 06:15 06:56 WBC 12.7 H (4.0-10.0) 10^3/ uL RBC 4.70 (4.1-5.3) 10^6/u L Hgb 13.1 (11.7-16.6) g/dL Hct 41.7 L (42.0-52.0) % MCV 88.7 (80-94) fL MCH 27.9 L (28.0-34.0) pg MCHC 31.4 (30.0-36.0) g/dL RDW 13.2 (12.1-15.1) % Plt Count 319 (130-400) 10^3/c mm MPV 11.4 H (7.4-10.4) fL Neut % (Auto) 73.9 % Lymph % (Auto) 17.9 % [place] % (Auto) 7.1 % Eos % (Auto) 0.5 % Baso % (Auto) 0.4 % Neut # (Auto) 9.40 H (1.8-7.7) 10^3/u L Lymph # (Auto) 2.3 (0.8-4.8) 10^3/u L [place] # (Auto) 0.9 (0.2-0.9) 10^3/u L Eos # (Auto) 0.1 (0.0-0.8) 10^3/u L Baso # (Auto) 0.1 (0.0-0.1) 10^3/u L Nucleated RBC % (a uto) 0 % Nucleated RBCs # 0.0 /100WBC Sodium 139 (136-145) mmol/L Potassium 3.9 (3.5-5.1) mmol/L Chloride 103 (98-107) mmol/L Carbon Dioxide 26 (22-29) mmol/L Anion Gap 13.9 (5-19) BUN 12 (6-20) mg/dL Creatinine 0.9 (0.7-1.2) mg/dL GFR Calculation 97.8 (90-130) mL/min Glucose 138 H (65-115) mg/dL Calculated Osmolal ity 290 (285-295) mOsm/k g Calcium 9.5 (8.5-10.5) mg/dL Total Bilirubin 0.4 (0.15-1.2) mg/dL AST 15 (0-40) U/L ALT 28 (0-41) U/L Alkaline Phosphata se 94 (40-130) IU/L Total Protein 7.3 (6.6-8.7) g/dL Albumin 4.1 (3.5-5.2) g/dL Globulin 3.2 (1.3-4.6) g/dL TSH 0.86 (0.27-4.20) uIU/ mL Urine Color Yellow (Yellow) Urine Appearance Clear (CLEAR) Urine pH 5 (5-7) Ur Specific Gravit y 1.020 (1.005-1.030) Urine Protein Neg (Negative) Urine Glucose (UA) Norm (Normal) Urine Ketones 1+ H (Negative) Urine Blood Neg (Negative) Urine Nitrate Negative (Negative) Urine Bilirubin 1+ H (Negative) Urine Urobilinogen Norm (Negative) mg/dL Ur Leukocyte Odalys ase Negative (Negative) Salicylates < 0.3 L (3-10) mg/dL Urine Opiates Scre en (Negative) ng/mL Acetaminophen < 5.0 L (10-30) ug/mL Ur Barbiturates Sc reen (Negative) ng/mL Ur Phencyclidine S crn (Negative) ng/mL Ur Amphetamines Sc reen (Negative) ng/mL U Benzodiazepines Scrn (Negative) ng/mL Urine Cocaine Scre en (Negative) ng/mL U Marijuana (THC) Screen (Negative) ng/mL Ethyl Alcohol < 10 (0-10) mg/dL 11/01/20 Range/Units 06:56 WBC (4.0-10.0) 10^3/ uL RBC (4.1-5.3) 10^6/u L Hgb (11.7-16.6) g/dL Hct (42.0-52.0) % MCV (80-94) fL MCH (28.0-34.0) pg MCHC (30.0-36.0) g/dL RDW (12.1-15.1) % Plt Count (130-400) 10^3/c mm MPV (7.4-10.4) fL Neut % (Auto) % Lymph % (Auto) % [place] % (Auto) % Eos % (Auto) % Baso % (Auto) % Neut # (Auto) (1.8-7.7) 10^3/u L Lymph # (Auto) (0.8-4.8) 10^3/u L [place] # (Auto) (0.2-0.9) 10^3/u L Eos # (Auto) (0.0-0.8) 10^3/u L Baso # (Auto) (0.0-0.1) 10^3/u L Nucleated RBC % (a uto) % Nucleated RBCs # /100WBC Sodium (136-145) mmol/L Potassium (3.5-5.1) mmol/L Chloride (98-107) mmol/L Carbon Dioxide (22-29) mmol/L Anion Gap (5-19) BUN (6-20) mg/dL Creatinine (0.7-1.2) mg/dL GFR Calculation (90-130) mL/min Glucose (65-115) mg/dL Calculated Osmolal ity (285-295) mOsm/k g Calcium (8.5-10.5) mg/dL Total Bilirubin (0.15-1.2) mg/dL AST (0-40) U/L ALT (0-41) U/L Alkaline Phosphata se (40-130) IU/L Total Protein (6.6-8.7) g/dL Albumin (3.5-5.2) g/dL Globulin (1.3-4.6) g/dL TSH (0.27-4.20) uIU/ mL Urine Color (Yellow) Urine Appearance (CLEAR) Urine pH (5-7) Ur Specific Gravit y (1.005-1.030) Urine Protein (Negative) Urine Glucose (UA) (Normal) Urine Ketones (Negative) Urine Blood (Negative) Urine Nitrate (Negative) Urine Bilirubin (Negative) Urine Urobilinogen (Negative) mg/dL Ur Leukocyte Odalys ase (Negative) Salicylates (3-10) mg/dL Urine Opiates Scre en Negative (Negative) ng/mL Acetaminophen (10-30) ug/mL Ur Barbiturates Sc reen Negative (Negative) ng/mL Ur Phencyclidine S crn Negative (Negative) ng/mL Ur Amphetamines Sc reen Negative (Negative) ng/mL U Benzodiazepines Scrn Negative (Negative) ng/mL Urine Cocaine Scre en Negative (Negative) ng/mL U Marijuana (THC) Screen Negative (Negative) ng/mL Ethyl Alcohol (0-10) mg/dL Discharge Plan Discharge Patient Disposition: Admitted As Inpatient Admit Provider: Nicolas Smalls Clinical Impression: Suicidal ideation Condition: Stable Sign Out Sign Out Data: Patient Sign Out occurred on 11/01/20 at 07:06. Patient's care was discussed, and care was transferred from to Richard Romero DO. Coding Level of Care Code ED Commercial Lending Assistant for Chg Fwd Exam Comprehensive Documented by User: Richard Romero DO 11/01/20 16:00 HPI - Psych General: Chief Complaint: Psychiatric Symptoms Stated Complaint: NOT FEELING WELL Time Seen by Provider: 11/01/20 05:29 [facility] ED PFSH: Medical History (Updated 11/01/20 @ 16:00 by Richard Romero DO) Morbid obesity Surgical History H/O circumcision H/O esophagogastroduodenoscopy (07/06/20) H/O hemorrhoidectomy History of tonsillectomy and adenoidectomy Hx of appendectomy Status post colonoscopy (07/06/20) Family History Family/Other Cancer breast cancer Other Anesthesia complication CAD (coronary artery disease) Diabetes Denies family history of Bleeding disorder Social History Smoking and tobacco status: never smoked Alcohol intake: never Household members: family Marital status: Single Current occupational status: disabled History of recent travel: No MDM - Psych MDM Narrative: Medical decision making narrative: Care assumed at change of shift. Patient admitted for suicidal ideation. Discussed with Dr. Smalls. Lab Data: Labs: Lab Results 11/01/20 11/01/20 11/01/20 Range/Units 06:15 06:15 06:56 WBC 12.7 H (4.0-10.0) 10^3/ uL RBC 4.70 (4.1-5.3) 10^6/u L Hgb 13.1 (11.7-16.6) g/dL Hct 41.7 L (42.0-52.0) % MCV 88.7 (80-94) fL MCH 27.9 L (28.0-34.0) pg MCHC 31.4 (30.0-36.0) g/dL RDW 13.2 (12.1-15.1) % Plt Count 319 (130-400) 10^3/c mm MPV 11.4 H (7.4-10.4) fL Neut % (Auto) 73.9 % Lymph % (Auto) 17.9 % [place] % (Auto) 7.1 % Eos % (Auto) 0.5 % Baso % (Auto) 0.4 % Neut # (Auto) 9.40 H (1.8-7.7) 10^3/u L Lymph # (Auto) 2.3 (0.8-4.8) 10^3/u L [place] # (Auto) 0.9 (0.2-0.9) 10^3/u L Eos # (Auto) 0.1 (0.0-0.8) 10^3/u L Baso # (Auto) 0.1 (0.0-0.1) 10^3/u L Nucleated RBC % (a uto) 0 % Nucleated RBCs # 0.0 /100WBC Sodium 139 (136-145) mmol/L Potassium 3.9 (3.5-5.1) mmol/L Chloride 103 (98-107) mmol/L Carbon Dioxide 26 (22-29) mmol/L Anion Gap 13.9 (5-19) BUN 12 (6-20) mg/dL Creatinine 0.9 (0.7-1.2) mg/dL GFR Calculation 97.8 (90-130) mL/min Glucose 138 H (65-115) mg/dL Calculated Osmolal ity 290 (285-295) mOsm/k g Calcium 9.5 (8.5-10.5) mg/dL Total Bilirubin 0.4 (0.15-1.2) mg/dL AST 15 (0-40) U/L ALT 28 (0-41) U/L Alkaline Phosphata se 94 (40-130) IU/L Total Protein 7.3 (6.6-8.7) g/dL Albumin 4.1 (3.5-5.2) g/dL Globulin 3.2 (1.3-4.6) g/dL TSH 0.86 (0.27-4.20) uIU/ mL Urine Color Yellow (Yellow) Urine Appearance Clear (CLEAR) Urine pH 5 (5-7) Ur Specific Gravit y 1.020 (1.005-1.030) Urine Protein Neg (Negative) Urine Glucose (UA) Norm (Normal) Urine Ketones 1+ H (Negative) Urine Blood Neg (Negative) Urine Nitrate Negative (Negative) Urine Bilirubin 1+ H (Negative) Urine Urobilinogen Norm (Negative) mg/dL Ur Leukocyte Odalys ase Negative (Negative) Salicylates < 0.3 L (3-10) mg/dL Urine Opiates Scre en (Negative) ng/mL Acetaminophen < 5.0 L (10-30) ug/mL Ur Barbiturates Sc reen (Negative) ng/mL Ur Phencyclidine S crn (Negative) ng/mL Ur Amphetamines Sc reen (Negative) ng/mL U Benzodiazepines Scrn (Negative) ng/mL Urine Cocaine Scre en (Negative) ng/mL U Marijuana (THC) Screen (Negative) ng/mL Ethyl Alcohol < 10 (0-10) mg/dL 11/01/20 Range/Units 06:56 WBC (4.0-10.0) 10^3/ uL RBC (4.1-5.3) 10^6/u L Hgb (11.7-16.6) g/dL Hct (42.0-52.0) % MCV (80-94) fL MCH (28.0-34.0) pg MCHC (30.0-36.0) g/dL RDW (12.1-15.1) % Plt Count (130-400) 10^3/c mm MPV (7.4-10.4) fL Neut % (Auto) % Lymph % (Auto) % [place] % (Auto) % Eos % (Auto) % Baso % (Auto) % Neut # (Auto) (1.8-7.7) 10^3/u L Lymph # (Auto) (0.8-4.8) 10^3/u L [place] # (Auto) (0.2-0.9) 10^3/u L Eos # (Auto) (0.0-0.8) 10^3/u L Baso # (Auto) (0.0-0.1) 10^3/u L Nucleated RBC % (a uto) % Nucleated RBCs # /100WBC Sodium (136-145) mmol/L Potassium (3.5-5.1) mmol/L Chloride (98-107) mmol/L Carbon Dioxide (22-29) mmol/L Anion Gap (5-19) BUN (6-20) mg/dL Creatinine (0.7-1.2) mg/dL GFR Calculation (90-130) mL/min Glucose (65-115) mg/dL Calculated Osmolal ity (285-295) mOsm/k g Calcium (8.5-10.5) mg/dL Total Bilirubin (0.15-1.2) mg/dL AST (0-40) U/L ALT (0-41) U/L Alkaline Phosphata se (40-130) IU/L Total Protein (6.6-8.7) g/dL Albumin (3.5-5.2) g/dL Globulin (1.3-4.6) g/dL TSH (0.27-4.20) uIU/ mL Urine Color (Yellow) Urine Appearance (CLEAR) Urine pH (5-7) Ur Specific Gravit y (1.005-1.030) Urine Protein (Negative) Urine Glucose (UA) (Normal) Urine Ketones (Negative) Urine Blood (Negative) Urine Nitrate (Negative) Urine Bilirubin (Negative) Urine Urobilinogen (Negative) mg/dL Ur Leukocyte Odalys ase (Negative) Salicylates (3-10) mg/dL Urine Opiates Scre en Negative (Negative) ng/mL Acetaminophen (10-30) ug/mL Ur Barbiturates Sc reen Negative (Negative) ng/mL Ur Phencyclidine S crn Negative (Negative) ng/mL Ur Amphetamines Sc reen Negative (Negative) ng/mL U Benzodiazepines Scrn Negative (Negative) ng/mL Urine Cocaine Scre en Negative (Negative) ng/mL U Marijuana (THC) Screen Negative (Negative) ng/mL Ethyl Alcohol (0-10) mg/dL Discharge Plan Discharge Patient Disposition: Admitted As Inpatient Admit Provider: Nicolas Smalls Clinical Impression: Suicidal ideation Condition: Stable Sign Out Sign Out Data: Patient Sign Out occurred on 11/01/20 at 07:06. Patient's care was discussed, and care was transferred from to Richard Romero DO. Coding Level of Care Code ED Commercial Lending Assistant for Deborah Fwrinku Exam Comprehensive
[2020-11-01 06:50] LABS: Basophils # 0.1 10^3/uL (0.0-0.1); Basophils % 0.4 %; Eosinophils # 0.1 10^3/uL (0.0-0.8); Eosinophils % 0.5 %; Hematocrit 41.7 % (42.0-52.0); Hemoglobin 13.1 g/dL (11.7-16.6); Lymphocytes # 2.3 10^3/uL (0.8-4.8); Lymphocytes % 17.9 %; Mean Corpuscular HGB Conc 31.4 g/dL (30.0-36.0); Mean Corpuscular Hemoglobin 27.9 pg (28.0-34.0); Mean Corpuscular Volume 88.7 fL (80-94); Mean Platelet Volume 11.4 fL (7.4-10.4); Monocytes # 0.9 10^3/uL (0.2-0.9); Monocytes % 7.1 %; Neutrophils % 73.9 %; Nucleated Red Blood Cells % 0 %; Platelet Count 319 10^3/cmm (130-400); Red Cell Distribution Width 13.2 % (12.1-15.1); White Blood Count 12.7 10^3/uL (4.0-10.0)
[2020-11-01 07:04] LABS: Add Urine Microscopic? NO
[2020-11-01 07:20] LABS: Bilirubin Urine 1+ (Negative); Blood Urine Neg (Negative); Glucose Urine UA Norm (Normal); Ketones Urine 1+ (Negative); Leukocyte Esterase Urine Negative (Negative); Nitrate Urine Negative (Negative); Protein Urine Neg (Negative); Urine Appearance Clear (CLEAR); Urine Color Yellow (Yellow); Urobilinogen Urine Norm (Negative); pH Urine 5 (5-7)
[2020-11-01 07:21] LABS: Amphetamines Screen Urine Negative (Negative); Barbiturates Screen Urine Negative (Negative); Benzodiazepines Screen Urine Negative (Negative); Cocaine Screen Urine Negative (Negative); Opiate Screen Urine Negative (Negative); PCP Screen Urine Negative (Negative); THC Screen Urine Negative (Negative)
[2020-11-01 07:25] LABS: Alanine Aminotransferase 28 U/L (0-41); Albumin Level 4.1 g/dL (3.5-5.2); Alkaline Phosphatase 94 IU/L (40-130); Anion Gap 13.9 (5-19); Aspartate Amino Transferase 15 U/L (0-40); Blood Urea Nitrogen 12 mg/dL (6-20); Calcium 9.5 mg/dL (8.5-10.5); Carbon Dioxide 26 mmol/L (22-29); Chloride 103 mmol/L (98-107); Globulin 3.2 g/dL (1.3-4.6); Glomerular Filtration Rate 97.8 mL/min (90-130); Glucose 138 mg/dL (65-115); Osmolality Calculated 290 mOsm/kg (285-295); Potassium 3.9 mmol/L (3.5-5.1); Sodium 139 mmol/L (136-145); Thyroid Stimulating Hormone 0.86 uIU/mL (0.27-4.20); Total Bilirubin 0.4 mg/dL (0.15-1.2); Total Protein 7.3 g/dL (6.6-8.7)
[2020-11-01 07:33] LABS: Acetaminophen < 5.0 ug/mL (10-30); Alcohol Level < 10 mg/dL (0-10); Salicylate < 0.3 mg/dL (3-10)
[2020-11-01 09:10] VITALS: BP 156/83; PULSE 74; RESP 18; O2SAT 92
[2020-11-01 09:25] VITALS: BP 158/110; PULSE 67; RESP 20; TEMP 36.7; O2SAT 98
[2020-11-01] MEDS: venlafaxine ER (24HR) 75 mg Capsule PO (14:55)
[2020-11-01 17:25] VITALS: BP 158/105; PULSE 89; RESP 20; TEMP 36.3; O2SAT 93
--- NOTE | 2020-11-01 20:07 | P.HP_ITS ---
Providers/Chief Complaint Admitting Physician: Nicolas Smalls MD Primary Care Provider: LAUREN Doe Chief Complaint: NOT FEELING WELL HPI NPU History of Present Illness Cj Myles is a 30 year old male who presented to the emergency department with the following report: Chief Complaint: Psychiatric Symptoms Stated Complaint: NOT FEELING WELL Time Seen by Provider: 11/01/20 05:29 History of Present Illness: HPI Narrative: 30-year-old male with a history of depression. He presents not feeling well. He was here about 12 hours ago with similar complaints. At that point he noted he was nonsuicidal. He returns stating that he could be suicidal, and that he has 2 separate plans. He did not elaborate on this. He has a myriad of other complaints listing nausea, chest discomfort, belly discomfort, and muscle cramping particularly in the right arm. He had recently tried to come off his Effexor, and had been off of about a week. He decided earlier this morning that this was probably his problem and took an Effexor but then became anxious about taking it with Zofran. He has requested NPU admission for stabilization. MD complaint: suicidal ideation and feels depressed Onset (ago): day(s) Duration: constant History of same: Yes Relieving factors: none Exacerbating factors: none Context: not taking psychiatric medications Associated psychiatric symptoms: depression and suicidal ideation Associated symptoms: Reports depression; Deny visual hallucinations or homicidal ideation If self harm: admits thoughts of self harm and has plan. He was admitted to the neuropsychiatric unit for definitive treatment of those issues. Today Cj presents with a very intellectualized story of how he came to be on Effexor and then discontinue it with great care only to still get withdrawal symptoms 6 months later. He describes brain zaps and you know the other bad withdrawal symptoms. He reports having some cardiac awareness type issues at times during withdrawal and recently with attempts to restart the medication to in the withdrawal symptoms that has led to this poorly described cardiac issue. He is convinced however that restarting at 75 versus 37-1/2 will help him much more and he was very desirous to proceed in that fashion. He endorsed reticence about the fact that he somehow convinced his mom to try Effexor and it totally changed her personality. Clearly he has done his research as he spoke about the different receptors the Abilify begins to impact at different doses levels. We talked about his cardiac side effects, as likely being an anxiety element which she was not opposed to. We also discussed sleeping issues and concerns about him not following through on utilizing a CPAP which is also significantly impact his overall wellness, depression and anxiety. On multiple occasions he endorsed may be just leaving. Eventually he agreed to restarting Effexor 75 mg p.o. daily and working with the treatment team to get him reconnected to services. He endorses a long history of mental health going back to before he was a teen. He denies inpatient services. He had significant outpatient services at [facility]. He endorsed having different diagnoses some he appeared to believe others he doubted including autism. He denies any significant addiction issues. He denied any significant developmental issues. He denied any issues of neglect or abuse. He ultimately endorsed a desire to be restart the Effexor and stay overnight but was quite ambivalent about continuing inpatient services. We discussed the risk benefits and alternatives of restarting his Effexor XR 75 mg and he understood and agreed to proceed as is documented in this note. Meds NPU Home Medications Medication Instructions Recorded Confirmed Last Taken Type cetirizine 10 mg capsule 10 mg PO DAILY 03/10/20 11/01/20 10/31/20 History omeprazole 20 mg capsule,delayed 20 mg PO DAILY 03/10/20 11/01/20 07/05/20 History release lactulose 15 ml PO DAILY PRN 11/01/20 11/01/20 Unknown History Allergies Allergy/AdvReac Type Severity Reaction Status Date / Time ondansetron [From Zofran] Allergy Unknown Verified 11/01/20 08:27 promethazine Allergy ALGY-Anaphy Verified 11/01/20 08:27 laxis PFS NPU PFSH: Medical History (Updated 11/02/20 @ 12:06 by Nicolas Smalls MD) Morbid obesity Surgical History H/O circumcision H/O esophagogastroduodenoscopy (07/06/20) H/O hemorrhoidectomy History of tonsillectomy and adenoidectomy Hx of appendectomy Status post colonoscopy (07/06/20) Family History Family/Other Cancer breast cancer Other Anesthesia complication CAD (coronary artery disease) Diabetes Denies family history of Bleeding disorder Social History Smoking and tobacco status: never smoked Alcohol intake: never Household members: family Marital status: Single Current occupational status: disabled History of recent travel: No Mental Status Exam MSE Comments: This is a morbidly obese white male in hospital scrubs with adequate grooming and eye contact. No abnormal movements. Mostly cooperative with exam in no acute distress. Speech was slightly decreased rate and volume. Mood described as all right may be a little anxious, affect congruent. Thought process organized. Thought content: Patient denied suicidal or homicidal ideation, there were no delusions reported or noted, he denied any auditory or visual hallucinations. Attention and concentration were intact and memory appeared reliable but none were formally tested. He is alert and oriented x3. Insight and judgment are fair. Impulse control also appears fair. Vitals/I&O/Wt Last Vital Signs Temp 98.3 F 11/01/20 20:19 Pulse 77 11/01/20 20:19 Resp 18 11/01/20 20:19 BP 127/77 11/01/20 20:19 Pulse Ox 95 11/01/20 20:19 Weight last 48 hrs Weight 181.437 kg Data NPU : 11/01/20 06:15 11/01/20 06:15 A&P Assessment and plan (1) Suicidal ideation: Status: Acute (2) Morbid obesity: Status: Acute (3) Insomnia: Status: Acute (4) Personality disorder: Status: Acute (5) Autism spectrum: Status: Acute (6) Depression: Status: Acute Additional A&P Information This is a 30-year-old white male with a long history of mental health diagnoses back 16 years at [facility] who presents with initial reports of suicidality that are denied but with concerns about side effects to Effexor out of active treatment for some time open to being reconnected with therapy. 1. Continue current medication. Start Effexor XR 75 mg p.o. every morning. 2. Continue every 15 minute checks for safety. 3. Encourage individual, group and milieu therapy. 4. Work with treatment team in the morning to reconnect with outpatient services. Involuntary Hold Information 96 Hour Hold: 96 Hour Involuntary Admission: No Attestations NPU Medical Necessity Statement*: Inpatient hospitalization is medically necessary and the clinically appropriate intervention at this time. We will monitor medications and make changes as indicated. Patient will be in the hospital for over two midnights. Likely length of stay 2-4 days. Coding Level of Care Code Acute Temporary Office Assistant for Deborah Marcd Diagnoses Suicidal ideation R45.851 Morbid obesity E66.01 Insomnia G47.00 Personality disorder F60.9 Autism spectrum F84.0 Depression F32.9
[2020-11-01 20:19] VITALS: BP 127/77; PULSE 77; RESP 18; TEMP 36.8; O2SAT 95
[2020-11-01] MEDS: trazodone 50 mg Tablet PO (23:26)
[2020-11-02] MEDS: hyDROXYzine 25 mg Capsule 50 MG PO (00:11)
--- NOTE | 2020-11-02 01:28 | PC.NURSE ---
The patient walked to the nurse's station requesting a blood pressure check. I asked the patient if he thought his blood pressure was high or low. He responded, I don't know. BP 144/98, pulse 85, O2 sat 96. The patient asked if the result was high. Told him it was high but not dangerously high. The patient said, I can't sleep with my blood pressure that high. I haven't been able to sleep for 5 days. Offered comfort measures or diversional activity which were rejected. Encouraged the patient to lay quietly on his bed with eyes closed. The patient returned to his room. About an hour earlier the patient had walked to the nurse's station suggestion he has Serotonin syndrome. At that time reviewed Symptoms of Serotonin syndrome with the patient. The patient seemed satisfied he did not have the syndrome.
--- NOTE | 2020-11-02 05:01 | PC.NURSE ---
The patient walked to the nurse's station and complained of chest pain. He pointed to an area right of his left nipple. He said the pain does not radiate or become worse with exertion. The patient said he needs antihypertensive medication. He was disappointed when told the MD would have to evaluate whether a new medication is needed. The patient said a snack would help because he feels hungry. A snack was provided. There was no further complaint of chest pain.
[2020-11-02 06:00] VITALS: BP 138/85; PULSE 82; RESP 16; TEMP 36.7; O2SAT 97
--- NOTE | 2020-11-02 08:12 | PC.NURSE ---
Patient behavior Patient has been standing by nurses station staring at the wall for over 10 minutes. Answers questions with a delayed response.
--- NOTE | 2020-11-02 09:18 | PC.NURSE ---
Morning Med Pass: Upon attempting to to administer Effexor patient refused stating that it caused a pain in his lower abdomen and did not allow him to sleep as he understands that it is to help him sleep. Educated patient on the uses of the medication and supplied him with educational material on the medication. DONALD, PIPER
--- NOTE | 2020-11-02 12:13 | P.DS_ITS ---
Diagnoses at Discharge Discharge Diagnosis (1) Suicidal ideation: Status: Resolved (2) Morbid obesity: Status: Acute (3) Insomnia: Status: Acute (4) Personality disorder: Status: Acute (5) Autism spectrum: Status: Acute (6) Depression: Status: Acute Reason for Visit Reason for Visit: NOT FEELING WELL Brief History: History of Present Illness Cj Myles is a 30 year old male who presented to the emergency department with the following report: Chief Complaint: Psychiatric Symptoms Stated Complaint: NOT FEELING WELL Time Seen by Provider: 11/01/20 05:29 History of Present Illness: HPI Narrative: 30-year-old male with a history of depression. He presents not feeling well. He was here about 12 hours ago with similar complaints. At that point he noted he was nonsuicidal. He returns stating that he could be suicidal, and that he has 2 separate plans. He did not elaborate on this. He has a myriad of other complaints listing nausea, chest discomfort, belly discomfort, and muscle cramping particularly in the right arm. He had recently tried to come off his Effexor, and had been off of about a week. He decided earlier this morning that this was probably his problem and took an Effexor but then became anxious about taking it with Zofran. He has requested NPU admission for stabilization. MD complaint: suicidal ideation and feels depressed Onset (ago): day(s) Duration: constant History of same: Yes Relieving factors: none Exacerbating factors: none Context: not taking psychiatric medications Associated psychiatric symptoms: depression and suicidal ideation Associated symptoms: Reports depression; Deny visual hallucinations or homicidal ideation If self harm: admits thoughts of self harm and has plan. He was admitted to the neuropsychiatric unit for definitive treatment of those issues. Today Cj presents with a very intellectualized story of how he came to be on Effexor and then discontinue it with great care only to still get withdrawal symptoms 6 months later. He describes brain zaps and you know the other bad withdrawal symptoms. He reports having some cardiac awareness type issues at times during withdrawal and recently with attempts to restart the medication to in the withdrawal symptoms that has led to this poorly described cardiac issue. He is convinced however that restarting at 75 versus 37-1/2 will help him much more and he was very desirous to proceed in that fashion. He endorsed reticence about the fact that he somehow convinced his mom to try Effexor and it totally changed her personality. Clearly he has done his research as he spoke about the different receptors the Abilify begins to impact at different doses levels. We talked about his cardiac side effects, as likely being an anxiety element which she was not opposed to. We also discussed sleeping issues and concerns about him not following through on utilizing a CPAP which is also significantly impact his overall wellness, depression and anxiety. On multiple occasions he endorsed may be just leaving. Eventually he agreed to restarting Effexor 75 mg p.o. daily and working with the treatment team to get him reconnected to services. He endorses a long history of mental health going back to before he was a teen. He denies inpatient services. He had significant outpatient services at [facility]. He endorsed having different diagnoses some he appeared to believe others he doubted including autism. He denies any significant addiction issues. He denied any significant developmental issues. He denied any issues of neglect or abuse. He ultimately endorsed a desire to be restart the Effexor and stay overnight but was quite ambivalent about continuing inpatient services. We discussed the risk benefits and alternatives of restarting his Effexor XR 75 mg and he understood and agreed to proceed as is documented in this note. Hospital Course Hospital Course Cj presented to the emergency department endorsing struggling with withdrawal phenomenon from Effexor from 6 months ago and having restarted from a bottle he had previously. He additionally reported great anxiety and not being sure how he was only get through this without some kind of medical assistance. He is admitted to the neuropsychiatric unit for definitive treatment of those issues. On the unit he slowly acclimated to the individual, group and milieu therapies. We had discussions about his not using a CPAP given his snoring and body habitus and the impact that could have on his depression. We initially restarted his Effexor at his request a dose of 75 mg but he had continued off of the medication and complaints when he was on. Clearly an anxiety component was at work as well. Ultimately he reversed course and decided that the medication was not good for him and also he did not want to continue as an inpatient. He was a voluntary patient and was able to contract for safety so he was allowed to discharge on no medication. He was referred to [facility] to have this conversation continue as an outpatient and he has a long history of there. During the hospitalization, patient had routine laboratory studies which were within normal limits except for few outliers. Additionally there was a general medical evaluation which was also within normal limits and revealed no new acute processes. Discharge Summary: At the time of discharge, he was upset with her lethality. Mood and anxiety were reasonably managed. Patient endorsed a plan to follow-up with the aftercare recommendations of the treatment team. Patient was evaluated and deemed to be absent credible lethality, and was a voluntary patient no longer desiring inpatient hospitalization, so was discharged. Involuntary Hold Information 96 Hour Hold: 96 Hour Involuntary Admission: No Mental Status Exam MSE Comments: This is a morbidly obese white male in hospital scrubs with adequate grooming and eye contact. No abnormal movements. Mostly cooperative with exam in no acute distress. Speech was slightly decreased rate and volume. Mood described as all right may be a little anxious, affect congruent. Thought process organized. Thought content: Patient denied suicidal or homicidal ideation, there were no delusions reported or noted, he denied any auditory or visual hallucinations. Attention and concentration were intact and memory appeared reliable but none were formally tested. He is alert and oriented x3. Insight and judgment are fair. Impulse control also appears fair. Discharge Data Data Completed and Pending: Completed Studies During Hospitalization Category Date Time Status XR chest 1V [place]alt ble [id number] Urgent Exams 11/01/20 05:46 Completed Vitals: Last Vital Signs Temp 98.0 F 11/02/20 06:00 Pulse 82 11/02/20 06:00 Resp 16 11/02/20 06:00 BP 138/85 11/02/20 06:00 Pulse Ox 97 11/02/20 06:00 Discharge Plan Discharge Patient Disposition: Home Condition: Stable Prescriptions: Continued All Day Allergy (cetirizine) 10 mg capsule 10 mg PO DAILY RF: 0 omeprazole 20 mg capsule,delayed release(DR/EC) 20 mg PO DAILY RF: 0 lactulose 10 gram/15 mL solution 15 ml PO DAILY PRN (Reason: Constipation) RF: 0 Discharge Orders: Discharge Order (Routine); Ordered 11/02/20 Ordered By: Nicolas Smalls Referrals: [facility] [place] [facility] [Outside] - 4-7 days (Fill out paperwork given to you at the hospital. Once completed contact [facility] and they will schedule an intake assessment, likely to be done over the phone.) Discharge Diet: Regular Discharge Activity: Resume usual activity Patient Instructions: Depression, Autism (DC), Borderline Personality Disorder (DC) Discharge Attestations NPU Time Spent in Discharge Care*: greater than 30 min Specific Discharge Activities: Specific discharge activities: educating patient, discussing with embedded case manager/social workers/dc planners, documenting/other paperwork and evaluating patient/reviewing data Coding Level of Care Code Acute Web Content Specialist for Shelby Fwd Diagnoses Suicidal ideation R45.851 Morbid obesity E66.01 Insomnia G47.00 Personality disorder F60.9 Autism spectrum F84.0 Depression F32.9
[2020-11-02 12:17] VITALS: BP 138/85; PULSE 82; RESP 16; TEMP 36.7; O2SAT 97
== END 2020-11-02 12:58 | disposition home or self-care (01) | DRG 881 ==
LOC: ER 07:06 → NP 09:00
PROVIDERS: Emergency Medicine; Admitting Provider Psychiatry & Neurology Psychiatry; Emergency Provider Family Medicine; PCP Nurse Practitioner Family; Visit Provider Psychiatry & Neurology Psychiatry
DX: F32.9 Major depressive disorder, single episode, unspecified (principal); R45.851 Suicidal ideations; Z68.44 Body mass index [BMI] 60.0-69.9, adult; E66.01 Morbid (severe) obesity due to excess calories; G47.00 Insomnia, unspecified; F60.9 Personality disorder, unspecified; F84.0 Autistic disorder
CPT/HCPCS: 12345; 36415; 71045; 80053; 80306; 80307; 81003; 84443; 85025; 93005; 99284

== ENCOUNTER 2020-11-05 03:27 | Emergency (ER) | payer MEDICAID, SELFPAY ==
[2020-11-05 03:28] VITALS: BP 205/95; PULSE 92; RESP 28; TEMP 36.7; O2SAT 98; BMI 66.5
--- NOTE | 2020-11-05 03:34 | CTR_ITS ---
PROCEDURE INFORMATION: Exam: CT Head Without Contrast Exam date and time: 11/05/2020 3:42 AM Age: 30 years old Clinical indication: Pain; Altered mental status/memory loss and other: Insomnia; Patient HX: Headache with insomnia x 8 days; Additional info: DAY TECHNIQUE: Imaging protocol: Computed tomography of the head without contrast. Radiation optimization: All CT scans at this facility use at least one of these dose optimization techniques: automated exposure control; mA and/or kV adjustment per patient size (includes targeted exams where dose is matched to clinical indication); or iterative reconstruction. COMPARISON: No relevant prior studies available. RADIATION DOSE METRICS: Total DLP (mGy-cm): 1227.7 FINDINGS: Brain: No acute intracranial hemorrhage or mass effect. No definite acute infarct by CT. MRI could be more sensitive/specific for detection, as clinically directed. Cerebral ventricles: Ventricle size is normal for age. Bones/joints: No definite acute skull fracture. Paranasal sinuses: Included paranasal sinuses are essentially clear. Mastoid air cells: No significant acute finding. CT/CT head wo con* [id number] IMPRESSION: 1. No acute intracranial hemorrhage or mass effect. 2. No definite acute infarct by CT, see above. 3. Other findings discussed above. Radiation Dose CTDIVOL = (mGy): DLP = 1227.7 (mGy-cm)
[2020-11-05 04:13] LABS: Basophils # 0.1 10^3/uL (0.0-0.1); Basophils % 0.4 %; Eosinophils # 0.1 10^3/uL (0.0-0.8); Eosinophils % 0.8 %; Hematocrit 42.8 % (42.0-52.0); Hemoglobin 13.6 g/dL (11.7-16.6); Lymphocytes # 2.5 10^3/uL (0.8-4.8); Lymphocytes % 20.9 %; Mean Corpuscular HGB Conc 31.8 g/dL (30.0-36.0); Mean Corpuscular Hemoglobin 28.1 pg (28.0-34.0); Mean Corpuscular Volume 88.4 fL (80-94); Mean Platelet Volume 11.4 fL (7.4-10.4); Monocytes # 1.1 10^3/uL (0.2-0.9); Monocytes % 9.3 %; Neutrophils # 8.14 10^3/uL (1.8-7.7); Neutrophils % 68.3 %; Nucleated Red Blood Cells % 0 %; Platelet Count 293 10^3/cmm (130-400); Red Blood Count 4.84 10^6/uL (4.1-5.3); Red Cell Distribution Width 13.2 % (12.1-15.1); White Blood Count 11.9 10^3/uL (4.0-10.0)
--- NOTE | 2020-11-05 04:15 | W.ED.HA ---
HPI - Headache General: Chief Complaint: Headache Stated Complaint: headache x 8 days Time Seen by Provider: 11/05/20 03:33 Source: patient Mode of arrival: ambulatory Limitations: no limitations History of Present Illness: HPI Narrative: Cj is a 30-year-old male states he has been having increased anxiety and stress. Patient was recently admitted to the psychiatric unit on the first. He states he has had insomnia for months along with headaches. He is now concerned he may have a neurologic problem. He states that he has tried medicines he still having a very difficult time sleeping. He does have a history of personality disorder and autism spectrum as well. He denies any worsening improving factors. Associated symptoms: Deny chest pain, fever(s), nausea, rash or vomiting Review of Systems Const: Denies: fever(s), chills, body aches or change in appetite Eyes: Denies: blurry vision or eye discomfort ENMT: Denies: throat pain or dental pain Card: Denies: chest pain Resp: Denies: dyspnea GI: Denies: abdominal pain, nausea, vomiting or diarrhea : Denies: dysuria Musc: Denies: neck pain or back pain Skin/Breast: Denies: rash Neuro: Reports: headache(s) Psych: Denies: depression Johnny/Lymph: Denies: easy bruising All/Imm: Denies: urticaria PFSH ED PFSH: Medical History (Updated 11/05/20 @ 04:52 by Sebastian Stewart MD) Morbid obesity Surgical History H/O circumcision H/O esophagogastroduodenoscopy (07/06/20) H/O hemorrhoidectomy History of tonsillectomy and adenoidectomy Hx of appendectomy Status post colonoscopy (07/06/20) Family History Family/Other Cancer breast cancer Other Anesthesia complication CAD (coronary artery disease) Diabetes Denies family history of Bleeding disorder Social History Smoking and tobacco status: never smoked Alcohol intake: never Household members: family Marital status: Single Current occupational status: disabled History of recent travel: No Physical Exam Const: COMMON NORMALS: no acute distress, patient oriented x3 and healthy appearing HENMT: COMMON NORMALS: normocephalic and atraumatic HEAD & SCALP: normocephalic and atraumatic Eye: COMMON NORMALS: Equal, round and reactive pupils present and EOMs intact bilaterally PUPIL: Yes Equal, round and reactive pupils present Neck/C-Spine: COMMON NORMALS: full ROM and supple Chest: COMMONS NORMALS: normal inspection of the chest and normal palpation of entire chest wall Resp: COMMON NORMALS: normal respiratory effort, No retractions, No use of accessory muscles and clear to auscultation bilaterally AUSCULTATION: clear to auscultation bilaterally Cardio: COMMON NORMALS: regular rate, regular rhythm and No murmurs present (Cardio) RATE: regular rate RHYTHM: regular rhythm GI: COMMON NORMALS: Normal to inspection, nondistended, normoactive bowel sounds present, Soft to palpation, non-tender and no masses PALPATION: Yes Soft to palpation Extremity: COMMON NORMALS: normal to inspection and full ROM Neuro: COMMON NORMALS: patient oriented x3, moves all extremities and no focal motor deficits CRANIAL NERVES: Yes CN normal except as noted SPEECH: speech normal GAIT: Yes Normal gait present MOTOR EXAM: 5/5 motor strength present throughout Psych: COMMON NORMALS: mental status grossly normal, Normal thought process present and cooperative THOUGHT PROCESS: Normal thought process present Skin: COMMON NORMALS: no rashes or lesions noted and no wounds GENERAL SKIN EXAM: no rashes or lesions noted Course Vital Signs: Vital signs: Vital Signs Temperature 98.1 F 11/05/20 03:28 Pulse Rate 84 11/05/20 05:06 Respiratory Rate 18 11/05/20 05:06 Blood Pressure 138/85 11/05/20 05:06 Pulse Oximetry 96 11/05/20 05:06 MDM - Headache MDM Narrative: Medical decision making narrative: Cj presents with headache that is atypical in nature. He does have insomnia. He has no signs of meningitis or subarachnoid hemorrhage. Patient's head CT and blood work here are normal. We will place him on Ambien for his insomnia and he is to follow-up his PCP and return if worsening. Lab Data: Labs: Lab Results 11/05/20 11/05/20 Range/Units 04:05 04:05 WBC 11.9 H (4.0-10.0) 10^3/ uL RBC 4.84 (4.1-5.3) 10^6/u L Hgb 13.6 (11.7-16.6) g/dL Hct 42.8 (42.0-52.0) % MCV 88.4 (80-94) fL MCH 28.1 (28.0-34.0) pg MCHC 31.8 (30.0-36.0) g/dL RDW 13.2 (12.1-15.1) % Plt Count 293 (130-400) 10^3/c mm MPV 11.4 H (7.4-10.4) fL Neut % (Auto) 68.3 % Lymph % (Auto) 20.9 % [place] % (Auto) 9.3 % Eos % (Auto) 0.8 % Baso % (Auto) 0.4 % Neut # (Auto) 8.14 H (1.8-7.7) 10^3/u L Lymph # (Auto) 2.5 (0.8-4.8) 10^3/u L [place] # (Auto) 1.1 H (0.2-0.9) 10^3/u L Eos # (Auto) 0.1 (0.0-0.8) 10^3/u L Baso # (Auto) 0.1 (0.0-0.1) 10^3/u L Nucleated RBC % (a uto) 0 % Nucleated RBCs # 0.0 /100WBC Sodium 140 (136-145) mmol/L Potassium 3.9 (3.5-5.1) mmol/L Chloride 104 (98-107) mmol/L Carbon Dioxide 27 (22-29) mmol/L Anion Gap 12.9 (5-19) BUN 12 (6-20) mg/dL Creatinine 0.9 (0.7-1.2) mg/dL GFR Calculation 97.8 (90-130) mL/min Glucose 111 (65-115) mg/dL Calculated Osmolal ity 290 (285-295) mOsm/k g Calcium 9.3 (8.5-10.5) mg/dL Imaging Data^: CT Head: Attestation: I personally reviewed and interpreted this imaging study as follows: Radiologist's impression: [address] [address] [address] Scan Report Signed Patient: Cj Myles Unit #: [id number] : 1990 Age/Sex: 30 / M ADM Date: 11/05/20 Loc: ER Room/Bed: Attending Dr: Ordering Provider/Ordering MD: Sebastian Stewart MD Date of Service: 11/05/20 Procedure(s): CT head wo con* [id number] Accession Number(s): [id number] Report Number: [id number] PROCEDURE INFORMATION: Exam: CT Head Without Contrast Exam date and time: 11/05/2020 3:42 AM Age: 30 years old Clinical indication: Pain; Altered mental status/memory loss and other: Insomnia; Patient HX: Headache with insomnia x 8 days; Additional info: DAY TECHNIQUE: Imaging protocol: Computed tomography of the head without contrast. Radiation optimization: All CT scans at this facility use at least one of these dose optimization techniques: automated exposure control; mA and/or kV adjustment per patient size (includes targeted exams where dose is matched to clinical indication); or iterative reconstruction. COMPARISON: No relevant prior studies available. RADIATION DOSE METRICS: Total DLP (mGy-cm): 1227.7 FINDINGS: Brain: No acute intracranial hemorrhage or mass effect. No definite acute infarct by CT. MRI could be more sensitive/specific for detection, as clinically directed. Cerebral ventricles: Ventricle size is normal for age. Bones/joints: No definite acute skull fracture. Paranasal sinuses: Included paranasal sinuses are essentially clear. Mastoid air cells: No significant acute finding. CT/CT head wo con* [id number] IMPRESSION: 1. No acute intracranial hemorrhage or mass effect. 2. No definite acute infarct by CT, see above. 3. Other findings discussed above. Discharge Plan Discharge Patient Disposition: Home Clinical Impression: Insomnia Headache Qualifiers: Headache type: unspecified Headache chronicity pattern: unspecified pattern Intractability: not intractable Qualified Code(s): R51.9 - Headache, unspecified Condition: Stable Prescriptions: New Ambien 5 mg tablet 5 mg PO .qhs PRN (Reason: insomnia) Qty: 60 RF: 0 No Action All Day Allergy (cetirizine) 10 mg capsule 10 mg PO DAILY RF: 0 omeprazole 20 mg capsule,delayed release(DR/EC) 20 mg PO DAILY RF: 0 lactulose 10 gram/15 mL solution 15 ml PO DAILY PRN (Reason: Constipation) RF: 0 Discharge Orders: Discharge ED (Routine); Ordered 11/05/20 Ordered By: Sebastian Stewart Referrals: Lexi Alston FNP [Primary Care Provider] - 1-3 days Discharge Diet: Advance as tolerated Discharge Activity: Resume usual activity Patient Instructions: Acute Headache (ED) Coding Level of Care Code ED Forest Logistics Manager for Chg Fwd Exam Comprehensive
[2020-11-05 04:30] LABS: Anion Gap 12.9 (5-19); Blood Urea Nitrogen 12 mg/dL (6-20); Calcium 9.3 mg/dL (8.5-10.5); Carbon Dioxide 27 mmol/L (22-29); Chloride 104 mmol/L (98-107); Glomerular Filtration Rate 97.8 mL/min (90-130); Glucose 111 mg/dL (65-115); Osmolality Calculated 290 mOsm/kg (285-295); Potassium 3.9 mmol/L (3.5-5.1); Sodium 140 mmol/L (136-145)
[2020-11-05 04:51] VITALS: BP 153/87; PULSE 92; O2SAT 99
[2020-11-05 05:06] VITALS: BP 138/85; PULSE 84; RESP 18; O2SAT 96
== END 2020-11-05 05:07 | disposition home or self-care (01) ==
PROVIDERS: Emergency Provider Emergency Medicine; PCP Nurse Practitioner Family
DX: R51.9 Headache, unspecified (principal); G47.00 Insomnia, unspecified
CPT/HCPCS: 12345; 70450; 80048; 85025; 96374; 96375; 99283

== ENCOUNTER 2020-11-28 09:38 | Emergency (ER) | payer MEDICAID, SELFPAY ==
[2020-11-28 09:48] VITALS: BP 166/103; PULSE 88; RESP 18; TEMP 36.6; O2SAT 97; BMI 62.9
--- NOTE | 2020-11-28 10:00 | XRR_ITS ---
PROCEDURE INFORMATION: Exam: XR Chest Exam date and time: 11/28/2020 10:05 AM Age: 30 years old Clinical indication: Other: Heart racing; Additional info: Palpitations TECHNIQUE: Imaging protocol: XR of the chest Views: 1 view. COMPARISON: CR XR chest 1V portable [id number] 11/01/2020 5:58 AM FINDINGS: Lungs: Unremarkable. No consolidation. Pleural spaces: Unremarkable. No pleural effusion. No pneumothorax. Heart/Mediastinum: Unremarkable. No cardiomegaly. Bones/joints: Unremarkable. XR/XR chest 1V portable [id number] IMPRESSION: No acute findings.
--- NOTE | 2020-11-28 10:40 | ECG_ITS ---
[facility] Test Date: 2020-11-28 Pat Name: Cj Myles Department: Room: Gender: Male Logistics Specialist: : 1990 Requested By: Jaz Sosa Order Number: [id number] Dawn MD: Ken Peoples M.D. Measurements Intervals [place] Rate: 87 P: 25 WA: 187 QRS: 27 QRSD: 98 T: 24 QT: 349 QTc: 422 Interpretive Statements SINUS RHYTHM Compared to ECG 11/01/2020 06:17:56 No significant changes Electronically Signed On 11-28-2020 17:01:04 KOSHER SEALER by Ken Peoples M.D. [email or web address]
[2020-11-28 10:51] LABS: Basophils % 0.3 %; Eosinophils # 0.1 10^3/uL (0.0-0.8); Eosinophils % 0.8 %; Hematocrit 42.9 % (42.0-52.0); Hemoglobin 13.8 g/dL (11.7-16.6); Lymphocytes # 2.1 10^3/uL (0.8-4.8); Mean Corpuscular HGB Conc 32.2 g/dL (30.0-36.0); Mean Corpuscular Hemoglobin 29.1 pg (28.0-34.0); Mean Corpuscular Volume 90.3 fL (80-94); Monocytes # 1.1 10^3/uL (0.2-0.9); Monocytes % 9.5 %; Neutrophils # 8.48 10^3/uL (1.8-7.7); Neutrophils % 71.1 %; Nucleated Red Blood Cells % 0 %; Platelet Count 294 10^3/cmm (130-400); Red Blood Count 4.75 10^6/uL (4.1-5.3); Red Cell Distribution Width 13.3 % (12.1-15.1); White Blood Count 11.9 10^3/uL (4.0-10.0)
[2020-11-28 10:56] LABS: Add Urine Microscopic? NO
[2020-11-28 11:01] LABS: Bilirubin Urine Neg (Negative); Blood Urine Neg (Negative); Glucose Urine UA Norm (Normal); Ketones Urine Negative (Negative); Leukocyte Esterase Urine Negative (Negative); Nitrate Urine Negative (Negative); Protein Urine Neg (Negative); Specific Gravity, Urine 1.005 (1.005-1.030); Urine Appearance Clear (CLEAR); Urine Color Straw (Yellow); Urobilinogen Urine Norm (Negative); pH Urine 7 (5-7)
[2020-11-28 11:06] LABS: Amphetamines Screen Urine Negative (Negative); Barbiturates Screen Urine Negative (Negative); Benzodiazepines Screen Urine Negative (Negative); Cocaine Screen Urine Negative (Negative); Opiate Screen Urine Negative (Negative); PCP Screen Urine Negative (Negative); THC Screen Urine Negative (Negative)
[2020-11-28 11:09] LABS: INR 1.01 (0.8-1.2); Troponin T (5th) Once 7 ng/L (0-15)
[2020-11-28 11:11] LABS: D Dimer 3.98 ug/mIFEU (0-0.59)
--- NOTE | 2020-11-28 11:14 | W.ED.GENADLT ---
HPI - General Adult General: Chief complaint: General Medical Stated complaint: WORSENING N/V, HEART PALPS Time Seen by Provider: 11/28/20 09:59 Source: patient Mode of arrival: ambulatory History of Present Illness: HPI narrative: 30-year-old male complaining of intermittent nausea, vomiting, palpitations, generally not feeling well. He has difficulty falling asleep and staying asleep. Often wakes up with palpitations, feeling like he cannot breathe, and takes him a while to settle down again. He is constantly tired, falls asleep during the day. He feels dizzy and weak when he gets up and moves around. No fever, weight loss, or vision changes. He has a history of anxiety and depression as well as developmental disorders. Associated symptoms: Reports chest pain, diaphoresis, headache(s) and palpitations; Deny dyspnea, nausea, syncope or vomiting Review of Systems General: Reports: 10 or more systems reviewed and unremarkable except in HPI and below Const: Reports: fatigue, diaphoresis, change in sleep pattern, daytime sleepiness and snoring Eyes: Denies: change in vision, blurry vision or blind spots ENMT: Reports: hoarseness and dry mouth Card: Reports: chest pain, palpitations, irregular heart rhythm, lightheadedness, pre-syncope and dyspnea on exertion; Denies: edema or syncope Resp: Denies: dyspnea, productive cough or non-productive cough GI: Denies: abdominal pain, nausea or vomiting Musc: Denies: neck pain, back pain or extremity pain Neuro: Reports: headache(s), numbness in extremities, weakness in extremities, sensory changes and dizziness Psych: Reports: anxiety, depression, sleeping less and irritability; Denies: visual hallucinations, auditory hallucinations or tactile hallucinations Endo: Reports: tired all the time; Denies: polyuria or polydipsia Johnny/Lymph: Denies: easy bruising or easy bleeding PFSH ED PFSH: Medical History Morbid obesity Surgical History H/O circumcision H/O esophagogastroduodenoscopy (07/06/20) H/O hemorrhoidectomy History of tonsillectomy and adenoidectomy Hx of appendectomy Status post colonoscopy (07/06/20) Family History Family/Other Cancer breast cancer Other Anesthesia complication CAD (coronary artery disease) Diabetes Denies family history of Bleeding disorder Social History Smoking and tobacco status: never smoked Alcohol intake: never Household members: family Marital status: Single Current occupational status: disabled History of recent travel: No Physical Exam Const: COMMON NORMALS: patient oriented x3 GENERAL APPEARANCE: anxious and disheveled; not lethargic, not ill appearing, not frail appearing, not Limp noted and not diaphoretic NUTRITIONAL APPEARANCE: obese morbidly obese ORIENTATION/CONSCIOUSNESS: not lethargic HENMT: COMMON NORMALS: normocephalic and hearing grossly normal bilaterally HEAD & SCALP: normocephalic Eye: COMMON NORMALS: Equal, round and reactive pupils present, EOMs intact bilaterally, conjunctivae normal and no scleral icterus ALIGNMENT: Yes alignment normal CONJUNCTIVA: Yes conjunctivae normal PUPIL: Yes Equal, round and reactive pupils present Neck/C-Spine: COMMON NORMALS: full ROM, no lymphadenopathy and supple Resp: COMMON NORMALS: normal respiratory effort and No use of accessory muscles EFFORT & INSPECTION: Yes able to speak in complete sentences Cardio: COMMON NORMALS: S1 normal heart sound present, S2 normal heart sound present and No murmurs present (Cardio) HEART SOUNDS: S1 normal heart sound present and S2 normal heart sound present GI: COMMON NORMALS: Soft to palpation INSPECTION: Yes normal to inspection PALPATION: Yes Soft to palpation, No Tenderness to palpation present (GI), No Guarding due to palpation present (GI) and No Rigid due to palpation Extremity: COMMON NORMALS: full ROM, capillary refill normal and no clubbing, cyanosis or edema Neuro: COMMON NORMALS: patient oriented x3, moves all extremities, no focal motor deficits and no sensory deficits noted SENSORIUM/ORIENTATION: No lethargic Psych: APPEARANCE: Yes disheveled ACTIVITY/MOTOR BEHAVIOR: Yes appropriate eye contact, Yes restless and Yes Avoids eye contact (attititude/behavior) SPEECH: Yes excessive MOOD & AFFECT: Yes anxious and Yes fearful THOUGHT PROCESS: Perseverating thought process present THOUGHT CONTENT: Yes rumination(s) ATTENTION/CONCENTRATION: Yes attention grossly intact MEMORY/COGNITION: Yes memory grossly intact INSIGHT: Fair insight present (Psych) JUDGEMENT: Fair judgement present (Psych) Course Vital Signs: Vital signs: Vital Signs Temperature 97.9 F 11/28/20 09:48 Pulse Rate 76 11/28/20 12:57 Respiratory Rate 20 H 11/28/20 12:57 Blood Pressure 166/103 11/28/20 09:48 Pulse Oximetry 100 11/28/20 12:57 MDM - General Adult MDM Narrative: Medical decision making narrative: 30-year-old morbidly obese male complaining of ongoing difficulty sleeping, chronic headaches, dizziness, palpitations. He has previously been diagnosed with obstructive sleep apnea, but requires repeat testing. No red flags such as weight loss, vision change, headache worse with lying down, phlebotomy supervisor nausea/vomiting or balance/coordination changes. CBC and chemistry normal. D-dimer elevated, CTA of chest negative for acute PE. I discussed at length with him how almost all of his symptoms are most likely due to untreated sleep apnea, and long-term health consequences of the condition. Recommend that he follow-up with soon as possible with his PCP to discuss repeat sleep study so that he can have his sleep apnea treated. Medical Records: Attestation: I reviewed the patient's medical records. Lab Data: Attestation: I reviewed the patient's lab results. Labs: Lab Results 11/28/20 11/28/20 11/28/20 Range/Units 10:11 10:11 10:11 WBC 11.9 H (4.0-10.0) 10^3/ uL RBC 4.75 (4.1-5.3) 10^6/u L Hgb 13.8 (11.7-16.6) g/dL Hct 42.9 (42.0-52.0) % MCV 90.3 (80-94) fL MCH 29.1 (28.0-34.0) pg MCHC 32.2 (30.0-36.0) g/dL RDW 13.3 (12.1-15.1) % Plt Count 294 (130-400) 10^3/c mm MPV 12.0 H (7.4-10.4) fL Neut % (Auto) 71.1 % Lymph % (Auto) 18.0 % [place] % (Auto) 9.5 % Eos % (Auto) 0.8 % Baso % (Auto) 0.3 % Neut # (Auto) 8.48 H (1.8-7.7) 10^3/u L Lymph # (Auto) 2.1 (0.8-4.8) 10^3/u L [place] # (Auto) 1.1 H (0.2-0.9) 10^3/u L Eos # (Auto) 0.1 (0.0-0.8) 10^3/u L Baso # (Auto) 0.0 (0.0-0.1) 10^3/u L Nucleated RBC % (a uto) 0 % Nucleated RBCs # 0.0 /100WBC PT 13.60 (12.1-14.9) SECO NDS INR 1.01 (0.8-1.2) D-Dimer 3.98 H (0-0.59) ug/mIFE U Sodium 140 (136-145) mmol/L Potassium 4.1 (3.5-5.1) mmol/L Chloride 104 (98-107) mmol/L Carbon Dioxide 27 (22-29) mmol/L Anion Gap 13.1 (5-19) BUN 8 (6-20) mg/dL Creatinine 0.9 (0.7-1.2) mg/dL GFR Calculation 97.8 (90-130) mL/min Glucose 101 (65-115) mg/dL Calculated Osmolal ity 288 (285-295) mOsm/k g Calcium 9.5 (8.5-10.5) mg/dL Magnesium 2.1 (1.7-2.3) mg/dL Total Bilirubin 0.4 (0.15-1.2) mg/dL AST 18 (0-40) U/L ALT 45 H (0-41) U/L Alkaline Phosphata se 83 (40-130) IU/L Troponin T Gen 5 n g/L (0-15) ng/L NT-Pro-B Natriuret Pep 7 (0-125) pg/mL Total Protein 6.6 (6.6-8.7) g/dL Albumin 4.1 (3.5-5.2) g/dL Globulin 2.5 (1.3-4.6) g/dL TSH 0.72 (0.27-4.20) uIU/ mL Urine Color (Yellow) Urine Appearance (CLEAR) Urine pH (5-7) Ur Specific Gravit y (1.005-1.030) Urine Protein (Negative) Urine Glucose (UA) (Normal) Urine Ketones (Negative) Urine Blood (Negative) Urine Nitrate (Negative) Urine Bilirubin (Negative) Urine Urobilinogen (Negative) mg/dL Ur Leukocyte Odalys ase (Negative) Urine Opiates Scre en (Negative) ng/mL Ur Barbiturates Sc reen (Negative) ng/mL Ur Phencyclidine S crn (Negative) ng/mL Ur Amphetamines Sc reen (Negative) ng/mL U Benzodiazepines Scrn (Negative) ng/mL Urine Cocaine Scre en (Negative) ng/mL U Marijuana (THC) Screen (Negative) ng/mL 11/28/20 11/28/20 11/28/20 Range/Units 10:11 10:41 10:41 WBC (4.0-10.0) 10^3/ uL RBC (4.1-5.3) 10^6/u L Hgb (11.7-16.6) g/dL Hct (42.0-52.0) % MCV (80-94) fL MCH (28.0-34.0) pg MCHC (30.0-36.0) g/dL RDW (12.1-15.1) % Plt Count (130-400) 10^3/c mm MPV (7.4-10.4) fL Neut % (Auto) % Lymph % (Auto) % [place] % (Auto) % Eos % (Auto) % Baso % (Auto) % Neut # (Auto) (1.8-7.7) 10^3/u L Lymph # (Auto) (0.8-4.8) 10^3/u L [place] # (Auto) (0.2-0.9) 10^3/u L Eos # (Auto) (0.0-0.8) 10^3/u L Baso # (Auto) (0.0-0.1) 10^3/u L Nucleated RBC % (a uto) % Nucleated RBCs # /100WBC PT (12.1-14.9) SECO NDS INR (0.8-1.2) D-Dimer (0-0.59) ug/mIFE U Sodium (136-145) mmol/L Potassium (3.5-5.1) mmol/L Chloride (98-107) mmol/L Carbon Dioxide (22-29) mmol/L Anion Gap (5-19) BUN (6-20) mg/dL Creatinine (0.7-1.2) mg/dL GFR Calculation (90-130) mL/min Glucose (65-115) mg/dL Calculated Osmolal ity (285-295) mOsm/k g Calcium (8.5-10.5) mg/dL Magnesium (1.7-2.3) mg/dL Total Bilirubin (0.15-1.2) mg/dL AST (0-40) U/L ALT (0-41) U/L Alkaline Phosphata se (40-130) IU/L Troponin T Gen 5 n g/L 7 (0-15) ng/L NT-Pro-B Natriuret Pep (0-125) pg/mL Total Protein (6.6-8.7) g/dL Albumin (3.5-5.2) g/dL Globulin (1.3-4.6) g/dL TSH (0.27-4.20) uIU/ mL Urine Color Straw (Yellow) Urine Appearance Clear (CLEAR) Urine pH 7 (5-7) Ur Specific Gravit y 1.005 (1.005-1.030) Urine Protein Neg (Negative) Urine Glucose (UA) Norm (Normal) Urine Ketones Negative (Negative) Urine Blood Neg (Negative) Urine Nitrate Negative (Negative) Urine Bilirubin Neg (Negative) Urine Urobilinogen Norm (Negative) mg/dL Ur Leukocyte Odalys ase Negative (Negative) Urine Opiates Scre en Negative (Negative) ng/mL Ur Barbiturates Sc reen Negative (Negative) ng/mL Ur Phencyclidine S crn Negative (Negative) ng/mL Ur Amphetamines Sc reen Negative (Negative) ng/mL U Benzodiazepines Scrn Negative (Negative) ng/mL Urine Cocaine Scre en Negative (Negative) ng/mL U Marijuana (THC) Screen Negative (Negative) ng/mL Discharge Plan Discharge Patient Disposition: Home Clinical Impression: Morbid obesity, Sleep apnea, Sleep trouble, Intermittent palpitations, Headache, Elevated blood pressure reading without diagnosis of hypertension Condition: Stable Prescriptions: No Action omeprazole 20 mg capsule,delayed release(DR/EC) 20 mg PO DAILY RF: 0 clotrimazole 1 % ointment 1 applic topical BID 14 Days Qty: 56.7 RF: 0 fluconazole 150 mg tablet 150 mg PO Q7D RF: 0 lactulose 10 gram/15 mL solution 15 ml PO DAILY PRN (Reason: Constipation) RF: 0 Discharge Orders: Discharge ED (Routine); Ordered 11/28/20 Ordered By: Jaz Sosa Referrals: Lexi Alston FNP [Primary Care Provider] - Discharge Diet: Usual diet Discharge Activity: Resume usual activity Patient Instructions: Obstructive Sleep Apnea Activity Restrictions/Additional Instructions: Follow-up with your primary care doctor in the next week to discuss repeat sleep study and recheck your blood pressure. Almost all of your symptoms are probably due to untreated severe sleep apnea, and it is important that you get this treated as soon as possible to avoid long-term damage to your heart and other organs. Return immediately to the ER if develop fever, chest pain, difficulty breathing, vision changes, numbness or weakness in your extremities, or any other sudden changes. Coding Level of Care Code ED Pharmacy General Manager for Deborah Kimble
[2020-11-28 11:15] LABS: Albumin Level 4.1 g/dL (3.5-5.2); Alkaline Phosphatase 83 IU/L (40-130); Anion Gap 13.1 (5-19); Aspartate Amino Transferase 18 U/L (0-40); Blood Urea Nitrogen 8 mg/dL (6-20); Calcium 9.5 mg/dL (8.5-10.5); Carbon Dioxide 27 mmol/L (22-29); Chloride 104 mmol/L (98-107); Globulin 2.5 g/dL (1.3-4.6); Glomerular Filtration Rate 97.8 mL/min (90-130); Glucose 101 mg/dL (65-115); Magnesium 2.1 mg/dL (1.7-2.3); NT Pro B Type Natriuretic Pept 7 pg/mL (0-125); Osmolality Calculated 288 mOsm/kg (285-295); Potassium 4.1 mmol/L (3.5-5.1); Sodium 140 mmol/L (136-145); Thyroid Stimulating Hormone 0.72 uIU/mL (0.27-4.20); Total Bilirubin 0.4 mg/dL (0.15-1.2); Total Protein 6.6 g/dL (6.6-8.7)
--- NOTE | 2020-11-28 11:15 | CTR_ITS ---
PROCEDURE INFORMATION: Exam: CT Angiography Chest With Contrast Exam date and time: 11/28/2020 11:31 AM Age: 30 years old Clinical indication: Dyspnea; Additional info: Palpitations, elevated ddimer TECHNIQUE: Imaging protocol: Computed tomographic angiography of the chest with contrast. 3D rendering (Not supervised by radiologist): MIP and/or 3D reconstructed images were created by the technologist. Radiation optimization: All CT scans at this facility use at least one of these dose optimization techniques: automated exposure control; mA and/or kV adjustment per patient size (includes targeted exams where dose is matched to clinical indication); or iterative reconstruction. Contrast material: OMNIPAQUE 350; Contrast volume: 95 ml; Contrast route: INTRAVENOUS (IV); COMPARISON: CR (CHEST, ) 11/28/2020 10:14 AM RADIATION DOSE METRICS: Total DLP (mGy-cm): 1369.61 FINDINGS: Pulmonary arteries: Normal. No pulmonary emboli. Aorta: Unremarkable. No aortic aneurysm. No aortic dissection. Lungs: Small benign calcified granulomas are present in the lungs. There is no pneumonia. Pleural spaces: Unremarkable. No pneumothorax. No pleural effusion. Heart: Unremarkable. No cardiomegaly. No pericardial effusion. Lymph nodes: Unremarkable. No enlarged lymph nodes. Bones/joints: Mild degenerative changes are present in the spine with scattered osteophytes. Soft tissues: Unremarkable. CT/CT angio chest PE protcl [id number] IMPRESSION: No acute abnormality. No evidence of pulmonary embolus or aortic aneurysm/dissection. Radiation Dose CTDIVOL = (mGy): DLP = 1369.61 (mGy-cm)
[2020-11-28] MEDS: iohexol 350 mg/mL 100 mL Btl IV (11:50)
[2020-11-28 11:52] LABS: Alanine Aminotransferase 45 U/L (0-41)
--- NOTE | 2020-11-28 12:07 | PC.PHAR ---
PT STATES HE TOOK AN OLD HYDROCODONE TAB TO HELP HIM SLEEP, BUT HE STATES IT WORKED TOO WELL . HE DOESN'T HAVE CURRENT PRESCRIPTION FOR IT.
[2020-11-28 12:57] VITALS: PULSE 76; RESP 20; O2SAT 100
== END 2020-11-28 12:58 | disposition home or self-care (01) ==
PROVIDERS: Emergency Provider Family Medicine; PCP Nurse Practitioner Family
DX: R00.2 Palpitations (principal); R51.9 Headache, unspecified; R03.0 Elevated blood-pressure reading, without diagnosis of hypertension; G47.30 Sleep apnea, unspecified; E66.01 Morbid (severe) obesity due to excess calories
CPT/HCPCS: 71045; 71275; 80053; 80306; 81003; 83735; 83880; 84443; 84484; 85025; 85378; 85610; 93005; 99283; Q9967

== ENCOUNTER 2020-12-02 11:18 | Emergency (ER) | payer MEDICAID, SELFPAY ==
[2020-12-02 11:18] VITALS: BP 150/97; PULSE 98; RESP 18; TEMP 36.9; O2SAT 98; BMI 63.5
[2020-12-02 12:28] VITALS: BP 128/78; PULSE 90; RESP 18; O2SAT 100
[2020-12-02 12:30] VITALS: RESP 18
[2020-12-02 14:55] VITALS: BP 128/68; PULSE 88; RESP 18; O2SAT 100
[2020-12-02 15:40] LABS: Basophils # 0.1 10^3/uL (0.0-0.1); Basophils % 0.4 %; Eosinophils # 0.1 10^3/uL (0.0-0.8); Eosinophils % 0.8 %; Hematocrit 44.7 % (42.0-52.0); Lymphocytes # 2.9 10^3/uL (0.8-4.8); Lymphocytes % 20.2 %; Mean Corpuscular HGB Conc 31.3 g/dL (30.0-36.0); Mean Corpuscular Hemoglobin 28.3 pg (28.0-34.0); Mean Corpuscular Volume 90.3 fL (80-94); Monocytes # 1.2 10^3/uL (0.2-0.9); Monocytes % 8.7 %; Neutrophils # 9.88 10^3/uL (1.8-7.7); Neutrophils % 69.6 %; Nucleated Red Blood Cells % 0 %; Platelet Count 348 10^3/cmm (130-400); Red Blood Count 4.95 10^6/uL (4.1-5.3); Red Cell Distribution Width 13.6 % (12.1-15.1); White Blood Count 14.2 10^3/uL (4.0-10.0)
[2020-12-02 16:00] VITALS: BP 128/88; PULSE 68; RESP 18; O2SAT 98
[2020-12-02 16:33] LABS: Alanine Aminotransferase 46 U/L (0-41); Albumin Level 4.4 g/dL (3.5-5.2); Alkaline Phosphatase 84 IU/L (40-130); Aspartate Amino Transferase 19 U/L (0-40); Blood Urea Nitrogen 7 mg/dL (6-20); Calcium 9.7 mg/dL (8.5-10.5); Carbon Dioxide 27 mmol/L (22-29); Chloride 101 mmol/L (98-107); Globulin 2.8 g/dL (1.3-4.6); Glomerular Filtration Rate 97.8 mL/min (90-130); Glucose 93 mg/dL (65-115); Osmolality Calculated 284 mOsm/kg (285-295); Sodium 138 mmol/L (136-145); Thyroid Stimulating Hormone 1.19 uIU/mL (0.27-4.20); Total Bilirubin 0.4 mg/dL (0.15-1.2); Total Protein 7.2 g/dL (6.6-8.7); Vitamin B12 515 pg/mL (232-1245)
[2020-12-02 16:37] LABS: Folate Level 10.4 ng/mL (4.5-32.2)
--- NOTE | 2020-12-02 16:57 | W.ED.HA ---
HPI - Headache General: Chief Complaint: Headache Stated Complaint: brain fog/ headache/ sleep issues Time Seen by Provider: 12/02/20 11:30 Source: patient Mode of arrival: ambulatory Limitations: no limitations History of Present Illness: HPI Narrative: Patient is a 30-year-old male who presents to the emergency department with several complaints. He states that he has had a headache that is chronic, but his most significant concern is that he does not sleep well. When he sleeps he does not get any rest, something that concerns him a lot is that he is no longer having any dreams which he thinks is very strange for him. He is not able to function optimally because he describes a brain fog . He also states that he is having some sexual problems with difficulty obtaining an erection. He rarely stays on track and is difficult to obtain a thorough history from him. He also says that he has a fungal skin infection in his groin region but is unwilling for me to examine him in that area. MD elicited complaint: headache Associated symptoms: Deny chest pain, confusion, cough, diaphoresis, eye pain, eye redness, fever(s), lightheadedness, loss of vision, malaise, nausea, neck stiffness, numbness, paresthesias, photophobia, pre-syncope, rash, seizures, short of breath, sound sensitivity, syncope, vomiting or weakness Treatments prior to arrival: none Review of Systems General: Reports: 10 or more systems reviewed and unremarkable except in HPI and below Const: Denies: fever(s), malaise or diaphoresis Eyes: Denies: change in vision or blurry vision ENMT: Denies: throat pain, enlarged tonsils, odynophagia, hoarseness, mouth pain or swelling of lips/tongue Card: Denies: chest pain, lightheadedness, syncope or pre-syncope Resp: Denies: dyspnea, productive cough or non-productive cough GI: Denies: nausea or vomiting : Denies: flank pain, dysuria, urinary frequency, urinary urgency or urinary hesitancy Musc: Denies: neck pain, back pain or extremity swelling Skin/Breast: Denies: rash Neuro: Reports: headache(s); Denies: confusion Psych: Reports: anxiety, sleeping less, memory loss and difficulty concentrating Endo: Denies: polyuria, polydipsia or tired all the time PFSH ED PFSH: Medical History (Updated 12/15/20 @ 11:46 by Cecy Johnson MD, [facility] [place]) Morbid obesity Surgical History H/O circumcision H/O esophagogastroduodenoscopy (07/06/20) H/O hemorrhoidectomy History of tonsillectomy and adenoidectomy Hx of appendectomy Status post colonoscopy (07/06/20) Family History Family/Other Cancer breast cancer Other Anesthesia complication CAD (coronary artery disease) Diabetes Denies family history of Bleeding disorder Social History Smoking and tobacco status: never smoked Alcohol intake: never Household members: family Marital status: Single Current occupational status: disabled History of recent travel: No Physical Exam Const: COMMON NORMALS: no acute distress, average body habitus, patient oriented x3, no limitations, healthy appearing, alert and well nourished NUTRITIONAL APPEARANCE: obese morbidly obese HENMT: COMMON NORMALS: normocephalic, atraumatic and moist oral mucous membranes HEAD & SCALP: normocephalic and atraumatic Eye: COMMON NORMALS: Equal, round and reactive pupils present, EOMs intact bilaterally, conjunctivae normal and no scleral icterus CONJUNCTIVA: Yes conjunctivae normal PUPIL: Yes Equal, round and reactive pupils present DIRECT OPHTHALMOSCOPY: No photophobia Neck/C-Spine: COMMON NORMALS: no meningeal signs and no JVD Resp: COMMON NORMALS: normal respiratory effort, No retractions, No use of accessory muscles, clear to auscultation bilaterally and percussion normal AUSCULTATION: clear to auscultation bilaterally PERCUSSION: percussion normal Cardio: COMMON NORMALS: no JVD, regular rate, regular rhythm, S1 normal heart sound present, S2 normal heart sound present, No gallops present (Cardio), No clicks present (Cardio), No murmurs present (Cardio), No rub (Cardio) and Peripheral pulses 2+ throughout RATE: regular rate RHYTHM: regular rhythm HEART SOUNDS: S1 normal heart sound present and S2 normal heart sound present PERIPHERAL PULSES: Peripheral pulses 2+ throughout GI: COMMON NORMALS: Normal to inspection, nondistended, normoactive bowel sounds present, Soft to palpation, non-tender, No hepatosplenomegaly present, no masses and no bruits PALPATION: Yes Soft to palpation and Yes No hepatosplenomegaly present Extremity: COMMON NORMALS: normal to inspection, full ROM, capillary refill normal, no calf tenderness and no pedal edema Neuro: COMMON NORMALS: patient oriented x3 SENSORIUM/ORIENTATION: Yes alert MENINGEAL SIGNS: Yes no meningeal signs Psych: ACTIVITY/MOTOR BEHAVIOR: Yes disorganized behavior SPEECH: Yes excessive THOUGHT PROCESS: disorganized THOUGHT CONTENT: No Suicidality present and No Homicidality present ATTENTION/CONCENTRATION: Yes attention grossly intact Skin: COMMON NORMALS: no rashes or lesions noted, no wounds, turgor normal, no jaundice, no petechiae and no mottling GENERAL SKIN EXAM: no rashes or lesions noted and turgor normal Course Reevaluation(s): Reevaluation #1: Discussed his lab findings with him. Explained there is nothing remarkable or concerning on his labs. Explained to him that he likely has sleep apnea with his obesity and that is probably what is causing him to have a poor sleep and to also give him the brain fog. He does have a sleep study scheduled for tonight and advised that he keep that appointment as I think sleep apnea is causing a lot of his problems. Advised that I will discharge him home with a prescription for fluconazole for his fungal dermatitis. He voiced understanding and is in agreement with the plan. Time: 16:57 Vital Signs: Vital signs: Vital Signs Temperature 98.5 F 12/02/20 11:18 Pulse Rate 68 12/02/20 17:19 Respiratory Rate 18 12/02/20 17:19 Blood Pressure 128/88 12/02/20 17:19 Pulse Oximetry 98 12/02/20 17:19 MDM - Headache MDM Narrative: Medical decision making narrative: 30-year-old morbidly obese gentleman who presents to the emergency department with multiple concerns. I believe his insomnia is secondary to sleep apnea and he has a sleep study scheduled for tonight. He also may have some underlying psychiatric issues and is very anxious. He is given a prescription for fluconazole and is advised to keep his appointment for a sleep study and to also follow-up with his primary care provider. Medical Records: Attestation: I reviewed the patient's medical records. Lab Data: Attestation: I reviewed the patient's lab results. Labs: Lab Results 12/02/20 12/02/20 12/02/20 Range/Units 14:30 14:30 14:30 WBC 14.2 H (4.0-10.0) 10^3/ uL RBC 4.95 (4.1-5.3) 10^6/u L Hgb 14.0 (11.7-16.6) g/dL Hct 44.7 (42.0-52.0) % MCV 90.3 (80-94) fL MCH 28.3 (28.0-34.0) pg MCHC 31.3 (30.0-36.0) g/dL RDW 13.6 (12.1-15.1) % Plt Count 348 (130-400) 10^3/c mm MPV 12.0 H (7.4-10.4) fL Neut % (Auto) 69.6 % Lymph % (Auto) 20.2 % Trigg % (Auto) 8.7 % Eos % (Auto) 0.8 % Baso % (Auto) 0.4 % Neut # (Auto) 9.88 H (1.8-7.7) 10^3/u L Lymph # (Auto) 2.9 (0.8-4.8) 10^3/u L Trigg # (Auto) 1.2 H (0.2-0.9) 10^3/u L Eos # (Auto) 0.1 (0.0-0.8) 10^3/u L Baso # (Auto) 0.1 (0.0-0.1) 10^3/u L Nucleated RBC % (a uto) 0 % Nucleated RBCs # 0.0 /100WBC Sodium 138 (136-145) mmol/L Potassium 4.0 (3.5-5.1) mmol/L Chloride 101 (98-107) mmol/L Carbon Dioxide 27 (22-29) mmol/L Anion Gap 14.0 (5-19) BUN 7 (6-20) mg/dL Creatinine 0.9 (0.7-1.2) mg/dL GFR Calculation 97.8 (90-130) mL/min Glucose 93 (65-115) mg/dL Calculated Osmolal ity 284 L (285-295) mOsm/k g Calcium 9.7 (8.5-10.5) mg/dL Total Bilirubin 0.4 (0.15-1.2) mg/dL AST 19 (0-40) U/L ALT 46 H (0-41) U/L Alkaline Phosphata se 84 (40-130) IU/L Total Protein 7.2 (6.6-8.7) g/dL Albumin 4.4 (3.5-5.2) g/dL Globulin 2.8 (1.3-4.6) g/dL Vitamin B12 515 (232-1245) pg/mL Folate 10.4 (4.5-32.2) ng/mL TSH 1.19 (0.27-4.20) uIU/ mL Discharge Plan Discharge Patient Disposition: Home Clinical Impression: Insomnia, Dermatitis fungal Condition: Stable Prescriptions: Continued lactulose 10 gram/15 mL solution 15 ml PO DAILY PRN (Reason: Constipation) RF: 0 No Action clotrimazole 1 % ointment 1 applic topical BID 14 Days Qty: 56.7 RF: 0 fluconazole 150 mg tablet 150 mg PO Q7D RF: 0 Colace 100 mg capsule 100 mg PO BID Qty: 60 RF: 0 Discharge Orders: Discharge ED (Routine); Ordered 12/02/20 Ordered By: Cecy Johnson Referrals: Lexi Alston FNP [Primary Care Provider] - 1-3 days Discharge Diet: Usual diet Discharge Activity: Increase activity as tolerated Patient Instructions: Insomnia (ED), Obstructive Sleep Apnea Activity Restrictions/Additional Instructions: Return for any new or worsening symptoms. Follow-up with your primary care provider within 3 days. It is important to keep your appointment for your sleep study today so that if you are diagnosed with sleep apnea you can commence management of your condition. I believe this will help a lot of the symptoms that you have. Coding Level of Care Code ED Senior [employer] Developer for Deborah Kimble
[2020-12-02 17:19] VITALS: BP 128/88; PULSE 68; RESP 18; O2SAT 98
== END 2020-12-02 17:19 | disposition home or self-care (01) ==
PROVIDERS: Emergency Provider Family Medicine; PCP Nurse Practitioner Family
DX: B36.9 Superficial mycosis, unspecified (principal); G47.00 Insomnia, unspecified
CPT/HCPCS: 80053; 82607; 82746; 84443; 85025; 99283

== ENCOUNTER 2020-12-09 16:28 | Emergency (ER) | payer MEDICAID, SELFPAY ==
[2020-12-09 16:31] VITALS: BP 137/82; PULSE 92; RESP 16; TEMP 36.6; O2SAT 97; BMI 60.0
--- NOTE | 2020-12-09 17:20 | ECG_ITS ---
[facility] Test Date: 2020-12-09 Pat Name: Cj Myles Department: Room: Gender: Male Transport Conductor: : 1990 Requested By: Steph Walter Order Number: [id number] Nereyda MD: WILDER BUCKLEY Measurements Intervals [place] Rate: 82 P: 53 PA: 173 QRS: 66 QRSD: 104 T: 35 QT: 344 QTc: 404 Interpretive Statements SINUS RHYTHM Compared to ECG 11/28/2020 09:50:58 No significant changes Electronically Signed On 12-10-2020 19:33:39 [employer]M RECEPTIONIST by WILDER BUCKLEY [id number]
--- NOTE | 2020-12-09 17:20 | CTR_ITS ---
PROCEDURE INFORMATION: Exam: CT Head Without Contrast Exam date and time: 12/09/2020 5:30 PM Age: 30 years old Clinical indication: Pain; Headache TECHNIQUE: Imaging protocol: Computed tomography of the head without contrast. Radiation optimization: All CT scans at this facility use at least one of these dose optimization techniques: automated exposure control; mA and/or kV adjustment per patient size (includes targeted exams where dose is matched to clinical indication); or iterative reconstruction. COMPARISON: CT head wo con* [id number] 11/05/2020 3:41 AM RADIATION DOSE METRICS: Total DLP (mGy-cm): 984.88 FINDINGS: Brain: No evidence of acute infarct. No mass or mass effect. No intra axial hemorrhage. No extra axial fluid collection or hemorrhage. Cerebral ventricles: Symmetric and without enlargement. Bones/joints: No acute fracture. Paranasal sinuses: Visualized sinuses are well aerated. Mastoid air cells: Visualized mastoid air cells are well aerated. Soft tissues: No concerning abnormalities. CT/CT head wo con* [id number] IMPRESSION: No acute intracranial abnormality. Radiation Dose CTDIVOL = (mGy): DLP = 984.88 (mGy-cm)
--- NOTE | 2020-12-09 17:29 | ED_ITS ---
HPI - General Adult General: Chief complaint: General Medical Stated complaint: UNABLE TO SLEEP & OTHER MANY THINGS Time Seen by Provider: 12/09/20 17:02 Source: patient Mode of arrival: ambulatory Limitations: no limitations History of Present Illness: HPI narrative: 30-year-old male patient presents to the emergency department with multiple complaints. He reports stopped his Effexor approximately 6 months ago, was under the care of Dr. Minor, psychiatry. He reports behavioral health will no longer see him as he missed appointments so he just stopped his Effexor. He reports since stopping Effexor he has began to have neurological symptoms, started as nausea and insomnia, onset was greater than 2 months ago. Primary care provider, Lexi Alston in [facility], states has been evaluated for insomnia and nausea with prescription of Zofran. He reports symptoms of nausea, insomnia and heart palpitations that occur at night. He states these symptoms are not associated with obstructive sleep apnea or anxiety/depression symptoms. He reports occasionally feels panic attacks that occur at night. He reports occurs as he goes to sleep and will occasionally feel full body jerking motion. He reports other complaints such as scalp tenderness, states feels kerosene is being poured on his head, he denies head pain at this time. He denies chest pain, shortness of breath. States has googled his symptoms and is afraid he has something wrong with his brain. He is requesting CAT scan and work up today upon exam. He states behavioral health appointment attempted but will have to start all over again due to missed appointments. He denies suicidal/homicidal ideation plans or thoughts today upon exam. He denies nausea upon exam or heart palpitations. He appears anxious. He reports has been to urgent care, seen in the emergency department with prescription of Ambien which seems to help. He denies recent visit to his primary care to help with symptoms. Onset (ago): month(s) Severity: moderate Associated symptoms: Reports headache(s), nausea and palpitations; Deny chest pain, diaphoresis, dyspnea, rash or vomiting Review of Systems General: Reports: 10 or more systems reviewed and unremarkable except in HPI and below Const: Denies: fever(s), chills or diaphoresis Eyes: Denies: blurry vision or eye redness ENMT: Denies: throat pain, dental pain or disequilibrium Card: Reports: palpitations; Denies: chest pain, swelling of feet/ankles, dyspnea on exertion or orthopnea Resp: Denies: dyspnea, productive cough, non-productive cough or wheezing GI: Reports: nausea; Denies: abdominal pain, vomiting, diarrhea, constipation, bloating or pain on defecation : Denies: dysuria, urinary urgency, nocturia or urinary incontinence Musc: Denies: neck pain, back pain, joint pain, joint warmth or muscle weakness Skin/Breast: Denies: rash, pruritus, erythema or skin tenderness Neuro: Reports: headache(s) and numbness in extremities (at night); Denies: weakness in extremities, difficulty walking or frequent falls Psych: Reports: anxiety, depression, sleeping less and difficulty concentrating; Denies: change in appetite, visual hallucinations, auditory hallucinations, tactile hallucinations, suicidal ideation or homicidal ideation Johnny/Lymph: Denies: easy bruising PFS ED PFSH: Medical History (Updated 12/09/20 @ 18:55 by BRYCE Jimenez) Morbid obesity Surgical History H/O circumcision H/O esophagogastroduodenoscopy (07/06/20) H/O hemorrhoidectomy History of tonsillectomy and adenoidectomy Hx of appendectomy Status post colonoscopy (07/06/20) Family History Family/Other Cancer breast cancer Other Anesthesia complication CAD (coronary artery disease) Diabetes Denies family history of Bleeding disorder Social History Smoking and tobacco status: never smoked Alcohol intake: never Household members: family Marital status: Single Current occupational status: disabled History of recent travel: No Physical Exam Const: COMMON NORMALS: no acute distress, patient oriented x3, healthy appearing, alert and well nourished GENERAL APPEARANCE: cooperative, comfortable, well kempt, well developed, anxious and well hydrated NUTRITIONAL APPEARANCE: obese ORIENTATION/CONSCIOUSNESS: Yes awake, Yes oriented to person, Yes oriented to place and Yes oriented to time; not confused and not patient obtunded HENMT: COMMON NORMALS: normocephalic, atraumatic, external ears normal, EAC's normal, Normal external nose present and moist oral mucous membranes HEAD & SCALP: normal to inspection, normocephalic and atraumatic; no abrasion, no laceration and no scalp tenderness FACE & SINUS: normal facial exam and face symmetric; no ecchymosis and no erythema NOSE: Normal external nose present and Normal nares present EXTERNAL EAR: Yes external ears normal EXTERNAL AUDITORY CANAL: EAC's normal MOUTH: Normal oral and palatal mucosa present, lip normal and tongue normal THROAT: posterior oropharynx normal and uvula midline Eye: COMMON NORMALS: Equal, round and reactive pupils present, EOMs intact bilaterally and conjunctivae normal GENERAL EYE: appearance normal, both eyes and all related structures CONJUNCTIVA: Yes conjunctivae normal PUPIL: Yes Equal, round and reactive pupils present Neck/C-Spine: COMMON NORMALS: full ROM and no lymphadenopathy GENERAL: Yes normal visual inspection and Yes trachea midline CERVICAL SPINE: Yes cervical ROM normal, No pain with cervical ROM, No loss of normal cervical lordosis, No Cervical spine tenderness, No Paracervical muscle tenderness, No Paracervical spasm and No Trapezius muscle tenderness Lymph: LYMPHATIC: no lymphadenopathy noted Chest: COMMONS NORMALS: normal inspection of the chest and normal palpation of entire chest wall Breast/axilla inspection: Yes no chest deformity, asymmetry, normal contours, no nodules, masses, tenderness Resp: COMMON NORMALS: normal respiratory effort, No retractions, No use of accessory muscles and clear to auscultation bilaterally EFFORT & INSPECTION: Yes able to speak in complete sentences, No labored and No audible wheezes AUSCULTATION: clear to auscultation bilaterally Cardio: COMMON NORMALS: regular rate, regular rhythm, S1 normal heart sound present, S2 normal heart sound present and Peripheral pulses 2+ throughout RATE: regular rate RHYTHM: regular rhythm HEART SOUNDS: S1 normal heart sound present and S2 normal heart sound present PERIPHERAL PULSES: Peripheral pulses 2+ throughout GI: COMMON NORMALS: Normal to inspection, nondistended, normoactive bowel sounds present, Soft to palpation and non-tender INSPECTION: Yes normal to inspection, No abdominal wall ecchymosis, No abdominal distension, Yes central obesity and No visible herniation PALPATION: Yes Soft to palpation : COMMON NORMALS: Yes no CVA tenderness BLADDER/KIDNEY EXAM: Yes no CVA tenderness Back/Pelvis: COMMON NORMALS: no CVA tenderness, thoracic and lumbar spine normal to inspection, no thoracic nor lumbar tenderness, thoraco-lumbar ROM normal and straight leg raise negative bilaterally Extremity: COMMON NORMALS: normal to inspection, full ROM, capillary refill no rmal, no clubbing, cyanosis or edema, no calf tenderness and no pedal edema GENERAL: Yes normal exam except as noted Neuro: KAVON COMA SCALE: document GCS findings [place] coma scale eye opening: Spontaneous [place] coma scale verbal response: Orientated K[place] coma scale motor response: Obey commands [place] coma scale total score: 15 COMMON NORMALS: patient oriented x3 and no focal motor deficits SENSORIUM/ORIENTATION: Yes alert, Yes oriented to person, Yes oriented to place and Yes oriented to time COORDINATION/BALANCE: [id number] test normal SPEECH: speech normal GAIT: Yes Normal gait present MOTOR EXAM: 5/5 motor strength present throughout, Pronator motor function not present, no tremor noted and Normal motor muscle tone present throughout COORDINATION: [id number] test normal Right pupil size (mm): 4 Left pupil size (mm): 4 Psych: COMMON NORMALS: mental status grossly normal, Normal thought process present, cooperative, normal affect, speech normal, activity/motor behavior normal, denies hallucinations, denies homicidal ideation and denies suicidal ideation APPEARANCE: Yes grossly normal and Yes well kempt ATTITUDE: Yes calm and Yes engaged ACTIVITY/MOTOR BEHAVIOR: Yes appropriate eye contact SPEECH: Yes normal speech and Yes excessive MOOD & AFFECT: Yes elevated mood and Yes anxious THOUGHT PROCESS: Normal thought process present THOUGHT CONTENT: Yes Normal thought content present ATTENTION/CONCENTRATION: Yes attention grossly intact and Yes concentration grossly intact MEMORY/COGNITION: Yes memory grossly intact INSIGHT: Good insight present (Psych) JUDGEMENT: Good judgement present (Psych) Skin: COMMON NORMALS: no rashes or lesions noted and turgor normal GENERAL SKIN EXAM: no rashes or lesions noted and turgor normal Course Vital Signs: Vital signs: Vital Signs Temperature 97.9 F 12/09/20 19:16 Pulse Rate 75 12/09/20 19:16 Respiratory Rate 16 12/09/20 19:16 Blood Pressure 134/78 12/09/20 19:16 Pulse Oximetry 97 12/09/20 19:16 MDM - General Adult MDM Narrative: Medical decision making narrative: Mr. Myles presents to the emergency department with multiple complaints. He has history of autism spectrum disorder, depression and anxiety. Patient reports symptoms mostly o ccur at night, he has been diagnosed with obstructive sleep apnea with further recommendation for CPAP trial study. He reports sleep study for CPAP titration is scheduled this month. I discussed in depth symptoms of obstructive sleep apnea, heart palpitations and hypoxia that can occur. He reports when he sleeps in a recliner this helps with symptoms. States his recliner is broken has been sleeping on the floor. CT scan of the head did not reveal acute abnormality, chemistry without hyponatremia or electrolyte abnormalities. CBC with slight elevation of white blood count which is chronic. Advised patient to have further evaluation by his primary care provider and need for continued evaluation by psychiatry. I also discussed in depth need to refrain from self- medicating and changing medication without consulting a provider. We discussed anxiety that can occur with obstructive sleep apnea. I spent 20 minutes counseling patient and answering his questions in regards to malignant hyperthermia, serotonin syndrome and other googled diagnoses he feels he could have. He did not experience hypertension, elevated heart rate or abnormal vital signs upon exam. Neurological and physical exam grossly intact. He does suffer from obesity which can worsen FORREST. Encouraged regular exercise and weight loss to help with FORREST symptoms. Lab Data: Labs: Lab Results 12/09/20 12/09/20 Range/Units 17:58 17:58 WBC 12.0 H (4.0-10.0) 10^3/ uL RBC 4.70 (4.1-5.3) 10^6/u L Hgb 13.4 (11.7-16.6) g/dL Hct 42.1 (42.0-52.0) % MCV 89.6 (80-94) fL MCH 28.5 (28.0-34.0) pg MCHC 31.8 (30.0-36.0) g/dL RDW 13.4 (12.1-15.1) % Plt Count 303 (130-400) 10^3/c mm MPV 11.7 H (7.4-10.4) fL Neut % (Auto) 67.1 % Lymph % (Auto) 20.1 % [place] % (Auto) 11.3 % Eos % (Auto) 0.9 % Baso % (Auto) 0.4 % Neut # (Auto) 8.05 H (1.8-7.7) 10^3/u L Lymph # (Auto) 2.4 (0.8-4.8) 10^3/u L [place] # (Auto) 1.4 H (0.2-0.9) 10^3/u L Eos # (Auto) 0.1 (0.0-0.8) 10^3/u L Baso # (Auto) 0.1 (0.0-0.1) 10^3/u L Nucleated RBC % (a uto) 0 % Nucleated RBCs # 0.0 /100WBC Sodium 138 (136-145) mmol/L Potassium 3.9 (3.5-5.1) mmol/L Chloride 103 (98-107) mmol/L Carbon Dioxide 27 (22-29) mmol/L Anion Gap 11.9 (5-19) BUN 8 (6-20) mg/dL Creatinine 1.0 (0.7-1.2) mg/dL GFR Calculation 86.6 L (90-130) mL/min Glucose 102 (65-115) mg/dL Calculated Osmolal ity 285 (285-295) mOsm/k g Calcium 9.2 (8.5-10.5) mg/dL Total Bilirubin 0.4 (0.15-1.2) mg/dL AST 25 (0-40) U/L ALT 53 H (0-41) U/L Alkaline Phosphata se 75 (40-130) IU/L Total Protein 7.0 (6.6-8.7) g/dL Albumin 3.7 (3.5-5.2) g/dL Globulin 3.3 (1.3-4.6) g/dL Imaging Data^: CT Head: Radiologist's impression: [address] [address] [address] Scan Report Signed Patient: Cj Myles #: [id number] : 1990Acct#:[id number] Age/Sex: 30 / MADM Date: 12/09/20 Loc: ERRoom/Bed: Attending Dr: Ordering Provider/Ordering MD: Stpeh Ceballos Date of Service: 12/09/20 Procedure(s): CT head wo con* [id number] Accession Number(s): [id number] Report Number: [id number] PROCEDURE INFORMATION: Exam: CT Head Without Contrast Exam date and time: 12/09/2020 5:30 PM Age: 30 years old Clinical indication: Pain; Headache TECHNIQUE: Imaging protocol: Computed tomography of the head without contrast. Radiation optimization: All CT scans at this facility use at least one of these dose optimization techniques: automated exposure control; mA and/or kV adjustment per patient size (includes targeted exams where dose is matched to clinical indication); or iterative reconstruction. COMPARISON: CT head wo con* [id number] 11/05/2020 3:41 AM RADIATION DOSE METRICS: Total DLP (mGy-cm): 984.88 FINDINGS: Brain: No evidence of acute infarct. No mass or mass effect. No intra axial hemorrhage. No extra axial fluid collection or hemorrhage. Cerebral ventricles: Symmetric and without enlargement. Bones/joints: No acute fracture. Paranasal sinuses: Visualized sinuses are well aerated. Mastoid air cells: Visualized mastoid air cells are well aerated. Soft tissues: No concerning abnormalities. CT/CT head wo con* [id number] IMPRESSION: No acute intracranial abnormality. Radiation Dose CTDIVOL = (mGy): DLP = 984.88 (mGy-cm) Dictated By:Liang Irving Signed By:Liang IrvingSignwhitney Date/Time:12/09/201750 DD/ 174 EKG Data^: EKG 1: EKG interpretation date: 12/09/20 EKG interpretation time: 17:31 Computer generated interpretation: Head CT 12/09/20 17:20 IMPRESSION: No acute intracranial abnormality. Radiation Dose CTDIVOL = (mGy): DLP = 984.88 (mGy-cm) Other EKG comments: Sinus rhythm, normal ECG, ventricular rate 82 Discharge Plan Discharge Patient Disposition: Home Clinical Impression: FORREST (obstructive sleep apnea), Anxiety Condition: Stable Prescriptions: No Action omeprazole 20 mg capsule,delayed release(DR/EC) 20 mg PO DAILY RF: 0 clotrimazole 1 % ointment 1 applic topical BID 14 Days Qty: 56.7 RF: 0 fluconazole 150 mg tablet 150 mg PO Q7D RF: 0 lactulose 10 gram/15 mL solution 15 ml PO DAILY PRN (Reason: Constipation) RF: 0 Discharge Orders: Discharge ED (Routine); Ordered 03/11/21 Ordered By: Steph Ceballos Referrals: Lexi Alston FNP [Primary Care Provider] - Discharge Diet: Usual diet Discharge Activity: Resume usual activity Patient Instructions: Sleep Apnea Syndrome (GEN), Anxiety (ED), Opioid Safety Activity Restrictions/Additional Instructions: Follow-up with your primary care provider in 5 to 7 days for reevaluation of emergency room visit today Continue with obstructive sleep apnea study as scheduled this month Do not drive or operate heavy machinery when experiencing fatigue symptoms Follow-up with psychiatry, do not self medicate or stop medications without consulting your provider. If you develop suicidal/homicidal ideation thoughts or plans, return to emergency department immediately Intake for psychiatry is open Sunday through Sunday 8- 30 at [facility]. Coding Level of Care Code ED Pharmacogeneticist for Deborah Fwrinku Exam Comprehensive
[2020-12-09 18:21] LABS: Basophils # 0.1 10^3/uL (0.0-0.1); Basophils % 0.4 %; Eosinophils # 0.1 10^3/uL (0.0-0.8); Eosinophils % 0.9 %; Hematocrit 42.1 % (42.0-52.0); Hemoglobin 13.4 g/dL (11.7-16.6); Lymphocytes # 2.4 10^3/uL (0.8-4.8); Lymphocytes % 20.1 %; Mean Corpuscular HGB Conc 31.8 g/dL (30.0-36.0); Mean Corpuscular Hemoglobin 28.5 pg (28.0-34.0); Mean Corpuscular Volume 89.6 fL (80-94); Mean Platelet Volume 11.7 fL (7.4-10.4); Monocytes # 1.4 10^3/uL (0.2-0.9); Monocytes % 11.3 %; Neutrophils # 8.05 10^3/uL (1.8-7.7); Neutrophils % 67.1 %; Nucleated Red Blood Cells % 0 %; Platelet Count 303 10^3/cmm (130-400); Red Cell Distribution Width 13.4 % (12.1-15.1)
[2020-12-09 18:22] LABS: Alanine Aminotransferase 53 U/L (0-41); Albumin Level 3.7 g/dL (3.5-5.2); Alkaline Phosphatase 75 IU/L (40-130); Anion Gap 11.9 (5-19); Aspartate Amino Transferase 25 U/L (0-40); Blood Urea Nitrogen 8 mg/dL (6-20); Calcium 9.2 mg/dL (8.5-10.5); Carbon Dioxide 27 mmol/L (22-29); Chloride 103 mmol/L (98-107); Creatinine Clr Calc Pharmacy 148.5342; Globulin 3.3 g/dL (1.3-4.6); Glomerular Filtration Rate 86.6 mL/min (90-130); Glucose 102 mg/dL (65-115); Osmolality Calculated 285 mOsm/kg (285-295); Potassium 3.9 mmol/L (3.5-5.1); Sodium 138 mmol/L (136-145); Total Bilirubin 0.4 mg/dL (0.15-1.2)
[2020-12-09 19:16] VITALS: BP 134/78; PULSE 75; RESP 16; TEMP 36.6; O2SAT 97
== END 2020-12-09 19:17 | disposition home or self-care (01) ==
PROVIDERS: Emergency Provider Nurse Practitioner Family; PCP Nurse Practitioner Family
DX: G47.33 Obstructive sleep apnea (adult) (pediatric) (principal); F41.9 Anxiety disorder, unspecified
CPT/HCPCS: 36415; 70450; 80053; 85025; 93005; 99283

== ENCOUNTER 2020-12-11 09:14 | Emergency (ER) | payer MEDICAID, SELFPAY ==
[2020-12-11 09:23] VITALS: BP 158/133; PULSE 87; RESP 16; TEMP 36.8; O2SAT 97; BMI 56.5
[2020-12-11 09:57] VITALS: RESP 16; TEMP 36.8; O2SAT 97
--- NOTE | 2020-12-11 14:42 | ED_ITS ---
HPI - General Adult General: Chief complaint: General Medical Stated complaint: multiple complaints Time Seen by Provider: 12/11/20 09:24 History of Present Illness: HPI narrative: Pt is a pleasant young man who states that he got a back injury back in june from sleeping in a chair too long for too many days after having extensive dental work. He says his back has progressively worsened. Says his PCP will not order an MRi, Ct was negative. Says he also has inflammation in back of throat and his PPI is not working well. he says that is his back pain is worse and he is experiencing numbness at times. Onset (ago): month(s) Location: back Severity: mild Severity scale (1-10): 2 Relieving factors: immobilization Exacerbating factors: movement Associated symptoms: Reports no associated symptoms; Deny chest pain, dyspnea, headache(s), nausea, rash or vomiting Review of Systems Const: Denies: fever(s), chills or body aches Eyes: Denies: change in vision or blurry vision ENMT: Reports: throat pain; Denies: nasal congestion Card: Denies: chest pain or dyspnea on exertion Resp: Denies: dyspnea, productive cough or non-productive cough GI: Reports: heartburn and constipation; Denies: abdominal pain, nausea or vomiting : Denies: difficulty urinating Musc: Reports: back pain; Denies: extremity pain Skin/Breast: Denies: rash Neuro: Denies: headache(s) Psych: Denies: anxiety or depression Johnny/Lymph: Denies: easy bruising PFS ED PFSH: Medical History (Updated 12/11/20 @ 09:50 by LAUREN Bains) Morbid obesity Surgical History H/O circumcision H/O esophagogastroduodenoscopy (07/06/20) H/O hemorrhoidectomy History of tonsillectomy and adenoidectomy Hx of appendectomy Status post colonoscopy (07/06/20) Family History Family/Other Cancer breast cancer Other Anesthesia complication CAD (coronary artery disease) Diabetes Denies family history of Bleeding disorder Social History Smoking and tobacco status: never smoked Alcohol intake: never Household members: family Marital status: Single Current occupational status: disabled History of recent travel: No Physical Exam Const: COMMON NORMALS: no acute distress and patient oriented x3; negative for average body habitus (high BMI) HENMT: COMMON NORMALS: normocephalic HEAD & SCALP: normal to inspection and normocephalic FACE & SINUS: normal facial exam Eye: COMMON NORMALS: conjunctivae normal GENERAL EYE: appearance normal, both eyes and all related structures CONJUNCTIVA: Yes conjunctivae normal Neck/C-Spine: COMMON NORMALS: no JVD Chest: COMMONS NORMALS: normal inspection of the chest Resp: COMMON NORMALS: normal respiratory effort and clear to auscultation bilaterally AUSCULTATION: clear to auscultation bilaterally Cardio: COMMON NORMALS: no JVD, regular rate and regular rhythm RATE: regular rate RHYTHM: regular rhythm GI: COMMON NORMALS: Soft to palpation (difficult exm due to obesity) AUSCULTATION: Yes Hypoactive bowel sounds present PALPATION: Yes Soft to palpation (difficult exm due to obesity) Back/Pelvis: LUMBAR SPINE/LOWER BACK: No paraspinal muscle tenderness and Yes straight leg raise negative bilaterally OTHER: no parathesia on exam Extremity: COMMON NORMALS: normal to inspection and full ROM Neuro: COMMON NORMALS: patient oriented x3 and CN's II-XII intact bilaterally MOTOR EXAM: 5/5 motor strength present throughout Course Vital Signs: Vital signs: Vital Signs Temperature 98.2 F 12/11/20 09:57 Pulse Rate 87 12/11/20 09:23 Respiratory Rate 16 12/11/20 09:57 Blood Pressure 158/133 12/11/20 09:23 Pulse Oximetry 97 12/11/20 09:57 MDM - General Adult MDM Narrative: Medical decision making narrative: Patient encouraged to follow-up with PCP and go over history and see if they are well do an MRI. Patient ambulated into the ER just fine exam was negative for any significant findings no physical findings consistent with cauda equine syndrome. Patient has been in the ER multiple times in for variety of illnesses follow-up treat his throat inflammation in light of that do not think that his Prilosec is working we will try Protonix. Patient encouraged to do a high-fiber diet. Discharge Plan Discharge Patient Disposition: Home Clinical Impression: Radiculopathy of lumbar region Constipation Qualifiers: Constipation type: slow transit constipation Qualified Code(s): K59.01 - Slow transit constipation Hypertension Qualifiers: Hypertension type: essential hypertension Qualified Code(s): I10 - Essential (primary) hypertension Condition: Stable Prescriptions: New Medrol (Duane) 4 mg tablets,dose pack See Rx Instructions .ROUTE .COMPLEX Qty: 21 RF: 0 Protonix 40 mg tablet,delayed release (DR/EC) 40 mg PO DAILY 28 Days Qty: 28 RF: 0 Colace 100 mg capsule 100 mg PO BID Qty: 60 RF: 0 Discontinued omeprazole 20 mg capsule,delayed release(DR/EC) 20 mg PO DAILY RF: 0 No Action clotrimazole 1 % ointment 1 applic topical BID 14 Days Qty: 56.7 RF: 0 fluconazole 150 mg tablet 150 mg PO Q7D RF: 0 lactulose 10 gram/15 mL solution 15 ml PO DAILY PRN (Reason: Constipation) RF: 0 Discharge Orders: Discharge ED (Routine); Ordered 12/11/20 Ordered By: Jose A Dang Referrals: Lexi Alston FNP [Primary Care Provider] - Discharge Diet: As Directed Discharge Activity: Resume usual activity Patient Instructions: Constipation (ED), High Fiber Diet (ED), Chronic Hypertension (ED), Lumbar Radiculopathy (ED) Activity Restrictions/Additional Instructions: Follow-up with medical provider as directed. Take medications as prescribed. Return to the ER or your medical provider if condition worsens. Please read and understand discharge instructions. If any questions ask please. Monitor blood pressure daily reports symptoms and readings back to your primary care provider.. Coding Level of Care Code ED Renovation Plant Supervisor for Deborah Kimble
--- NOTE | 2020-12-11 15:39 | PC.NURSE ---
prescriptions called in to [facility]
== END 2020-12-11 09:57 | disposition home or self-care (01) ==
PROVIDERS: Emergency Provider Nurse Practitioner Family; PCP Nurse Practitioner Family
DX: M54.16 Radiculopathy, lumbar region (principal); K59.01 Slow transit constipation; I10 Essential (primary) hypertension
CPT/HCPCS: 99281

== ENCOUNTER → 2020-12-13 15:56 | Outpatient (BNVA) | payer MEDICAID, SELFPAY | PROVIDERS: PCP Nurse Practitioner Family; Visit Provider Nurse Practitioner | DX: J02.9 Acute pharyngitis, unspecified (principal) | CPT/HCPCS: 87071; 87880 ==

== ENCOUNTER → 2021-01-04 16:31 | Outpatient (BNVA) | payer MEDICAID, SELFPAY | PROVIDERS: PCP Family Medicine; Visit Provider Emergency Medicine | DX: J02.9 Acute pharyngitis, unspecified (principal) | CPT/HCPCS: 87071; 87880 ==

== ENCOUNTER → 2021-01-04 16:31 | Outpatient (BNVA) | payer MEDICAID, SELFPAY | PROVIDERS: PCP Family Medicine; Visit Provider Emergency Medicine | DX: Z01.89 Encounter for other specified special examinations (principal) | CPT/HCPCS: 87071 ==

== ENCOUNTER 2021-01-14 13:22 | Emergency (ER) | payer MEDICAID, SELFPAY ==
[2021-01-14 13:32] VITALS: BP 162/100; PULSE 79; RESP 16; TEMP 36.7; O2SAT 98; BMI 56.5
[2021-01-14 13:37] VITALS: RESP 16
--- NOTE | 2021-01-14 13:45 | XR_ITS ---
WS: [id number] Portable AP upright chest, 01/14/2021 Clinical Data: dyspnea/cough Comparison: Portable chest, 11/28/2020. Findings: No nodules, masses or effusions are seen. The heart is normal. The pulmonary vascularity is not increased. No pneumonia or pneumothorax is seen. XR/XR chest 1V portable [id number] Impression: Negative chest.
--- NOTE | 2021-01-14 13:54 | W.ED.GENADLT ---
HPI - General Adult General: Chief complaint: Shortness of Breath/Dyspnea Stated complaint: thinks he has PNE Time Seen by Provider: 01/14/21 13:43 History of Present Illness: HPI narrative: 30-year-old male presents emergency room with complaint of intermittent cough chest discomfort and shortness of breath this is been going on for the last couple of weeks. Nurses notes that he had no complaint of any symptoms during triage when I came in the room he was coughing slightly but no other problems. He said this ultimately began about 2 months ago he had some sort of event although he cannot really describe it to me more than that. He states his temperature varies on each side of his body now. He is not on any inhaled medications he has no known history of asthma. He is not had a productive cough or hemoptysis with this. Onset (ago): week(s) Severity: mild Pain Consistency: intermittent Relieving factors: rest Exacerbating factors: other (cough) Associated symptoms: Reports chest pain ((Chest discomfort)) and cough; Deny confusion, diaphoresis, decreased appetite, dyspnea, fevers/chills, headache(s), malaise, nausea, rash, palpitations, seizures, short of breath, syncope, vomiting or weakness Treatments prior to arrival: none Review of Systems Const: Denies: malaise or diaphoresis ENMT: Denies: throat pain, ear or mastoid pain, nasal discharge or nasal congestion Card: Reports: chest pain ((Chest discomfort)); Denies: palpitations or syncope Resp: Denies: dyspnea GI: Denies: vomiting : Denies: flank pain, dysuria, urinary frequency or urinary urgency Skin/Breast: Denies: rash Neuro: Denies: headache(s) or confusion PFSH ED PFSH: Medical History Morbid obesity Pannus, abdominal Surgical History H/O circumcision H/O esophagogastroduodenoscopy (07/06/20) H/O hemorrhoidectomy History of tonsillectomy and adenoidectomy Hx of appendectomy Status post colonoscopy (07/06/20) Family History Family/Other Cancer breast cancer Other Anesthesia complication CAD (coronary artery disease) Diabetes Denies family history of Bleeding disorder Social History Smoking and tobacco status: never smoked Alcohol intake: never Household members: family Marital status: Single Current occupational status: disabled History of recent travel: No Physical Exam Const: COMMON NORMALS: no acute distress GENERAL APPEARANCE: cooperative and comfortable ORIENTATION/CONSCIOUSNESS: Yes awake, Yes oriented to person, Yes oriented to place and Yes oriented to time HENMT: COMMON NORMALS: normocephalic, atraumatic and hearing grossly normal bilaterally HEAD & SCALP: normocephalic and atraumatic Neck/C-Spine: COMMON NORMALS: no JVD Resp: COMMON NORMALS: normal respiratory effort, No retractions, No use of accessory muscles and clear to auscultation bilaterally AUSCULTATION: clear to auscultation bilaterally Cardio: COMMON NORMALS: no JVD, regular rate, regular rhythm and No murmurs present (Cardio) RATE: regular rate RHYTHM: regular rhythm GI: COMMON NORMALS: Soft to palpation and No hepatosplenomegaly present AUSCULTATION: Yes normoactive bowel sounds PALPATION: Yes Soft to palpation, No Tenderness to palpation present (GI), No Guarding due to palpation present (GI) and Yes No hepatosplenomegaly present Extremity: COMMON NORMALS: normal to inspection, capillary refill normal, no clubbing, cyanosis or edema, no calf tenderness and no pedal edema Neuro: SENSORIUM/ORIENTATION: Yes oriented to person, Yes oriented to place and Yes oriented to time Skin: COMMON NORMALS: no rashes or lesions noted GENERAL SKIN EXAM: no rashes or lesions noted Course Vital Signs: Vital signs: Vital Signs Temperature 98.1 F 01/14/21 13:32 Pulse Rate 79 01/14/21 13:32 Respiratory Rate 16 01/14/21 15:06 Blood Pressure 162/100 01/14/21 13:32 Pulse Oximetry 98 01/14/21 13:32 MDM - General Adult MDM Narrative: Medical decision making narrative: Chest x-ray shows no evidence of pneumonia. It is possible he is having some reflux that is causing some cough. Continue on the omeprazole. His blood pressure was elevated while he was here we will recommend that he start on amlodipine 5 mg daily follow-up with primary care doctor within the week to recheck blood pressure return if has problems. Lab Data: Labs: Lab Results 01/14/21 01/14/21 Range/Units 14:08 14:08 WBC 11.4 H (4.0-10.0) 10^3/ uL RBC 4.55 (4.1-5.3) 10^6/u L Hgb 12.9 (11.7-16.6) g/dL Hct 40.7 L (42.0-52.0) % MCV 89.5 (80-94) fL MCH 28.4 (28.0-34.0) pg MCHC 31.7 (30.0-36.0) g/dL RDW 13.7 (12.1-15.1) % Plt Count 275 (130-400) 10^3/c mm MPV 11.8 H (7.4-10.4) fL Neut % (Auto) 67.8 % Lymph % (Auto) 17.9 % [place] % (Auto) 11.3 % Eos % (Auto) 2.2 % Baso % (Auto) 0.4 % Neut # (Auto) 7.75 H (1.8-7.7) 10^3/u L Lymph # (Auto) 2.0 (0.8-4.8) 10^3/u L [place] # (Auto) 1.3 H (0.2-0.9) 10^3/u L Eos # (Auto) 0.3 (0.0-0.8) 10^3/u L Baso # (Auto) 0.1 (0.0-0.1) 10^3/u L Nucleated RBC % (a uto) 0 % Nucleated RBCs # 0.0 /100WBC Sodium 139 (136-145) mmol/L Potassium 4.1 (3.5-5.1) mmol/L Chloride 103 (98-107) mmol/L Carbon Dioxide 28 (22-29) mmol/L Anion Gap 12.1 (5-19) BUN 11 (6-20) mg/dL Creatinine 0.7 (0.7-1.2) mg/dL GFR Calculation 130.7 H (90-130) mL/min Glucose 93 (65-115) mg/dL Calculated Osmolal ity 287 (285-295) mOsm/k g Calcium 8.9 (8.5-10.5) mg/dL Total Bilirubin 0.4 (0.15-1.2) mg/dL AST 15 (0-40) U/L ALT 36 (0-41) U/L Alkaline Phosphata se 72 (40-130) IU/L Total Protein 6.8 (6.6-8.7) g/dL Albumin 3.9 (3.5-5.2) g/dL Globulin 2.9 (1.3-4.6) g/dL Discharge Plan Discharge Patient Disposition: Home Clinical Impression: Hypertension, Morbid obesity Condition: Stable Prescriptions: New amlodipine 5 mg tablet 5 mg PO DAILY Qty: 30 RF: 0 No Action omeprazole 20 mg capsule,delayed release(DR/EC) 20 mg PO DAILY@0900 RF: 0 lactulose 10 gram/15 mL solution 15 ml PO DAILY PRN (Reason: Constipation) RF: 0 Discharge Orders: Discharge ED (Routine); Ordered 01/14/21 Ordered By: Richard Romero Referrals: Olivia Black DO [Primary Care Provider] - Discharge Diet: Usual diet Discharge Activity: Resume usual activity Patient Instructions: Opioid Safety Activity Restrictions/Additional Instructions: Follow-up with your primary care doctor within a week to reevaluate your blood pressure. Coding Level of Care Code ED Molding Room Supervisor for Deborah Kimble
[2021-01-14 14:21] LABS: Basophils # 0.1 10^3/uL (0.0-0.1); Basophils % 0.4 %; Eosinophils # 0.3 10^3/uL (0.0-0.8); Eosinophils % 2.2 %; Hematocrit 40.7 % (42.0-52.0); Hemoglobin 12.9 g/dL (11.7-16.6); Lymphocytes % 17.9 %; Mean Corpuscular HGB Conc 31.7 g/dL (30.0-36.0); Mean Corpuscular Hemoglobin 28.4 pg (28.0-34.0); Mean Corpuscular Volume 89.5 fL (80-94); Mean Platelet Volume 11.8 fL (7.4-10.4); Monocytes # 1.3 10^3/uL (0.2-0.9); Monocytes % 11.3 %; Neutrophils # 7.75 10^3/uL (1.8-7.7); Neutrophils % 67.8 %; Nucleated Red Blood Cells % 0 %; Platelet Count 275 10^3/cmm (130-400); Red Blood Count 4.55 10^6/uL (4.1-5.3); Red Cell Distribution Width 13.7 % (12.1-15.1); White Blood Count 11.4 10^3/uL (4.0-10.0)
[2021-01-14 14:49] LABS: Alanine Aminotransferase 36 U/L (0-41); Albumin Level 3.9 g/dL (3.5-5.2); Alkaline Phosphatase 72 IU/L (40-130); Anion Gap 12.1 (5-19); Aspartate Amino Transferase 15 U/L (0-40); Blood Urea Nitrogen 11 mg/dL (6-20); Calcium 8.9 mg/dL (8.5-10.5); Carbon Dioxide 28 mmol/L (22-29); Chloride 103 mmol/L (98-107); Globulin 2.9 g/dL (1.3-4.6); Glomerular Filtration Rate 130.7 mL/min (90-130); Glucose 93 mg/dL (65-115); Osmolality Calculated 287 mOsm/kg (285-295); Potassium 4.1 mmol/L (3.5-5.1); Sodium 139 mmol/L (136-145); Total Bilirubin 0.4 mg/dL (0.15-1.2); Total Protein 6.8 g/dL (6.6-8.7)
[2021-01-14 15:06] VITALS: RESP 16
== END 2021-01-14 15:07 | disposition home or self-care (01) ==
PROVIDERS: Emergency Provider Family Medicine; PCP Family Medicine
DX: I10 Essential (primary) hypertension (principal); E66.01 Morbid (severe) obesity due to excess calories
CPT/HCPCS: 71045; 80053; 85025; 99283

== ENCOUNTER 2021-01-31 20:00 | Outpatient (CLI) | payer MEDICAID, SELFPAY | END 2021-01-31 20:01 | disposition home or self-care (01) | LOC: SLEEP 02-01 13:21 | PROVIDERS: PCP Family Medicine; Visit Provider Nurse Practitioner Family | DX: G47.33 Obstructive sleep apnea (adult) (pediatric) (principal); G47.00 Insomnia, unspecified; E66.01 Morbid (severe) obesity due to excess calories | CPT/HCPCS: 95810 ==

== ENCOUNTER 2021-04-28 17:12 | Emergency (ER) | payer MEDICAID, SELFPAY ==
[2021-04-28 17:37] VITALS: BP 153/97; PULSE 98; RESP 18; TEMP 37.5; O2SAT 95; BMI 56.5
[2021-04-28 20:42] LABS: Add Urine Culture? Yes; Bacteria Urine 4+ /hpf; Bilirubin Urine Neg (Negative); Blood Urine 3+ (Negative); Glucose Urine UA Norm (Normal); Ketones Urine Negative (Negative); Leukocyte Esterase Urine 2+ (Negative); Nitrate Urine Positive (Negative); Protein Urine Neg (Negative); Specific Gravity, Urine 1.015 (1.005-1.030); Squamous Epithelial Cell Urine 0-4 /hpf (0-5); Urine Appearance Cloudy (CLEAR); Urine Color Yellow (Yellow); Urobilinogen Urine Norm (Negative); WBC Urine >100 /hpf (0-5); pH Urine 5 (5-7)
== END 2021-04-28 20:49 | disposition left against medical advice (07) ==
PROVIDERS: Physician Assistant; Emergency Provider Family Medicine; PCP Family Medicine
DX: R31.9 Hematuria, unspecified (principal); Z53.21 Procedure and treatment not carried out due to patient leaving prior to being seen by health care provider
CPT/HCPCS: 81001; 87086

== ENCOUNTER 2021-04-29 10:50 | Emergency (ER) | payer MEDICAID, SELFPAY ==
[2021-04-29 11:07] VITALS: BP 120/90; PULSE 86; RESP 16; TEMP 37.3; O2SAT 98; BMI 56.5
--- NOTE | 2021-04-29 11:56 | ED_ITS ---
HPI - Male Genitourinary General: Chief complaint: Urogenital-Male Stated complaint: PAINFUL URINATION AND FEVER Time Seen by Provider: 04/29/21 11:37 History of Present Illness: HPI Narrative: Comes to the ER complaining of fever to 102-103 a couple days ago. At the same time he started noticing increased urinary frequency and he says he has blood in his urine and pus coming out of his penis. Denies pain to his testicles or sexual activity at all ever. MD Complaint: dysuria Severity: moderate Quality: burning Relieving factors: none Exacerbating factors: urination Associated symptoms: Reports dysuria and fevers/chills Review of Systems General: Reports: 10 or more systems reviewed and unremarkable except in HPI and below Const: Denies: fatigue Eyes: Denies: change in vision, blurry vision or eye redness ENMT: Denies: throat pain, swelling of lips/tongue, ear or mastoid pain or nasal congestion Card: Denies: chest pain, palpitations, irregular heart rhythm, edema, dyspnea on exertion or orthopnea Resp: Denies: dyspnea, productive cough or non-productive cough GI: Denies: abdominal pain, diarrhea or GI cramping : Reports: dysuria, urinary frequency and urinary urgency; Denies: flank pain or difficulty urinating Musc: Denies: neck pain, back pain, extremity pain, joint pain, joint redness, limited range of motion or muscle weakness Skin/Breast: Denies: rash, pruritus, erythema, skin pain or skin tenderness Neuro: Denies: headache(s), numbness in extremities, weakness in extremities, sensory changes, difficulty walking, dizziness, confusion or Slurred speech present Psych: Denies: anxiety or depression Endo: Denies: polyuria All/Imm: Denies: urticaria, throat swelling or tongue swelling PFSH ED PFSH: Medical History Morbid obesity Pannus, abdominal Surgical History H/O circumcision H/O esophagogastroduodenoscopy (07/06/20) H/O hemorrhoidectomy History of tonsillectomy and adenoidectomy Hx of appendectomy Status post colonoscopy (07/06/20) Family History Family/Other Cancer breast cancer Other Anesthesia complication CAD (coronary artery disease) Diabetes Denies family history of Bleeding disorder Social History Smoking and tobacco status: never smoked Alcohol intake: never Household members: family Marital status: Single Current occupational status: disabled History of recent travel: No Physical Exam Const: COMMON NORMALS: no acute distress, average body habitus, patient oriented x3, no limitations, healthy appearing, alert and well nourished GENERAL APPEARANCE: cooperative, comfortable, well kempt and well developed ORIENTATION/CONSCIOUSNESS: Yes awake, Yes oriented to person, Yes oriented to place and Yes oriented to time HENMT: COMMON NORMALS: normocephalic, external ears normal and Normal external nose present HEAD & SCALP: normal to inspection and normocephalic NOSE: Normal external nose present EXTERNAL EAR: Yes external ears normal MOUTH: Normal oral and palatal mucosa present THROAT: posterior oropharynx normal Eye: COMMON NORMALS: Equal, round and reactive pupils present and EOMs intact bilaterally GENERAL EYE: appearance normal, both eyes and all related structures PUPIL: Yes Equal, round and reactive pupils present Neck/C-Spine: COMMON NORMALS: full ROM, no lymphadenopathy, no meningeal signs and no JVD GENERAL: Yes normal visual inspection Lymph: LYMPHATIC: no lymphadenopathy noted Chest: COMMONS NORMALS: normal inspection of the chest and normal palpation of entire chest wall Resp: COMMON NORMALS: normal respiratory effort, No retractions, No use of accessory muscles, clear to auscultation bilaterally and percussion normal EFFORT & INSPECTION: Yes able to speak in complete sentences AUSCULTATION: clear to auscultation bilaterally PERCUSSION: percussion normal Cardio: COMMON NORMALS: no JVD, regular rate, regular rhythm, S1 normal heart sound present, S2 normal heart sound present and Peripheral pulses 2+ throughout RATE: regular rate RHYTHM: regular rhythm HEART SOUNDS: S1 normal heart sound present and S2 normal heart sound present PERIPHERAL PULSES: Peripheral pulses 2+ throughout GI: COMMON NORMALS: Normal to inspection, nondistended, normoactive bowel sounds present, Soft to palpation, non-tender and no masses INSPECTION: Yes normal to inspection PALPATION: Yes Soft to palpation : COMMON NORMALS: Yes no CVA tenderness BLADDER/KIDNEY EXAM: Yes no CVA tenderness Back/Pelvis: COMMON NORMALS: no CVA tenderness, thoracic and lumbar spine normal to inspection, no thoracic nor lumbar tenderness and thoraco-lumbar ROM normal Extremity: COMMON NORMALS: normal to inspection, full ROM, capillary refill normal, no joint enlargement and no pedal edema GENERAL: Yes normal exam except as noted Neuro: COMMON NORMALS: patient oriented x3, CN's II-XII intact bilaterally, moves all extremities, no focal motor deficits, no sensory deficits noted and gait normal SENSORIUM/ORIENTATION: Yes alert, Yes oriented to person, Yes oriented to place and Yes oriented to time MENINGEAL SIGNS: Yes no meningeal signs Psych: COMMON NORMALS: mental status grossly normal, Normal thought process present, cooperative, normal affect and speech normal APPEARANCE: Yes well kempt ATTITUDE: Yes calm SPEECH: Yes normal speech THOUGHT PROCESS: Normal thought process present Skin: COMMON NORMALS: no rashes or lesions noted GENERAL SKIN EXAM: no rashes or lesions noted Course Vital Signs: Vital signs: Vital Signs Temperature 99.1 F 04/29/21 11:07 Pulse Rate 83 04/29/21 15:41 Respiratory Rate 16 04/29/21 15:41 Blood Pressure 133/61 04/29/21 15:41 Pulse Oximetry 99 04/29/21 15:41 MDM - Male MDM Narrative: Medical decision making narrative: The patient came to the ER with symptoms of fever and urinary tract infection. He was given ceftriaxone and a liter of fluids with improvement clinically. He no longer has pain and has been urinating clear multiple times with no burning. He does have white count 16.9 and did have fever at home. No significant fever here. He is requesting discharge. He was sent home with Bactrim recommended he follow-up with his primary care physician in a week to get his urine retested and discuss work-up for being a male and having a urinary tract infection. He understands and will follow up. Return to the ER at anytime with worsening symptoms Lab Data: Labs: Lab Results 04/29/21 04/29/21 04/29/21 Range/Units 12:45 12:45 12:45 WBC 16.9 H (4.0-10.0) 10^3/ uL RBC 4.61 (4.1-5.3) 10^6/u L Hgb 13.4 (11.7-16.6) g/dL Hct 42.3 (42.0-52.0) % MCV 91.8 (80-94) fL MCH 29.1 (28.0-34.0) pg MCHC 31.7 (30.0-36.0) g/dL RDW 13.3 (12.1-15.1) % Plt Count 278 (130-400) 10^3/c mm MPV 11.4 H (7.4-10.4) fL Neut % (Auto) 72.7 % Lymph % (Auto) 15.9 % [place] % (Auto) 9.4 % Eos % (Auto) 1.1 % Baso % (Auto) 0.4 % Neut # (Auto) 12.25 H (1.8-7.7) 10^3/u L Lymph # (Auto) 2.7 (0.8-4.8) 10^3/u L [place] # (Auto) 1.6 H (0.2-0.9) 10^3/u L Eos # (Auto) 0.2 (0.0-0.8) 10^3/u L Baso # (Auto) 0.1 (0.0-0.1) 10^3/u L Nucleated RBC % (a uto) 0 % Nucleated RBCs # 0.0 /100WBC Sodium 138 (136-145) mmol/L Potassium 4.0 (3.5-5.1) mmol/L Chloride 102 (98-107) mmol/L Carbon Dioxide 28 (22-29) mmol/L Anion Gap 12.0 (5-19) BUN 9 (6-20) mg/dL Creatinine 0.9 (0.7-1.2) mg/dL GFR Calculation 97.8 (90-130) mL/min Glucose 122 H (65-115) mg/dL Calculated Osmolal ity 286 (285-295) mOsm/k g Lactate 0.7 (0.5-2.2) mmol/L Calcium 8.8 (8.5-10.5) mg/dL Total Bilirubin 0.4 (0.15-1.2) mg/dL AST 10 (0-40) U/L ALT 16 (0-41) U/L Alkaline Phosphata se 78 (40-130) IU/L Total Protein 6.4 L (6.6-8.7) g/dL Albumin 4.0 (3.5-5.2) g/dL Globulin 2.4 (1.3-4.6) g/dL Lipase 13 (13-60) U/L Urine Color (Yellow) Urine Appearance (CLEAR) Urine pH (5-7) Ur Specific Gravit y (1.005-1.030) Urine Protein (Negative) Urine Glucose (UA) (Normal) Urine Ketones (Negative) Urine Blood (Negative) Urine Nitrate (Negative) Urine Bilirubin (Negative) Urine Urobilinogen (Negative) mg/dL Ur Leukocyte Odalys ase (Negative) Urine RBC (0-2) /hpf Urine WBC (0-5) /hpf Ur Squamous Epith Cells (0-5) /hpf Amorphous Sediment Urine Bacteria (NONE) /hpf 04/29/21 Range/Units 13:00 WBC (4.0-10.0) 10^3/ uL RBC (4.1-5.3) 10^6/u L Hgb (11.7-16.6) g/dL Hct (42.0-52.0) % MCV (80-94) fL MCH (28.0-34.0) pg MCHC (30.0-36.0) g/dL RDW (12.1-15.1) % Plt Count (130-400) 10^3/c mm MPV (7.4-10.4) fL Neut % (Auto) % Lymph % (Auto) % [place] % (Auto) % Eos % (Auto) % Baso % (Auto) % Neut # (Auto) (1.8-7.7) 10^3/u L Lymph # (Auto) (0.8-4.8) 10^3/u L [place] # (Auto) (0.2-0.9) 10^3/u L Eos # (Auto) (0.0-0.8) 10^3/u L Baso # (Auto) (0.0-0.1) 10^3/u L Nucleated RBC % (a uto) % Nucleated RBCs # /100WBC Sodium (136-145) mmol/L Potassium (3.5-5.1) mmol/L Chloride (98-107) mmol/L Carbon Dioxide (22-29) mmol/L Anion Gap (5-19) BUN (6-20) mg/dL Creatinine (0.7-1.2) mg/dL GFR Calculation (90-130) mL/min Glucose (65-115) mg/dL Calculated Osmolal ity (285-295) mOsm/k g Lactate (0.5-2.2) mmol/L Calcium (8.5-10.5) mg/dL Total Bilirubin (0.15-1.2) mg/dL AST (0-40) U/L ALT (0-41) U/L Alkaline Phosphata se (40-130) IU/L Total Protein (6.6-8.7) g/dL Albumin (3.5-5.2) g/dL Globulin (1.3-4.6) g/dL Lipase (13-60) U/L Urine Color Yellow (Yellow) Urine Appearance Cloudy (CLEAR) Urine pH 5 (5-7) Ur Specific Gravit y 1.020 (1.005-1.030) Urine Protein 1+ H (Negative) Urine Glucose (UA) Norm (Normal) Urine Ketones Negative (Negative) Urine Blood 3+ H (Negative) Urine Nitrate Positive H (Negative) Urine Bilirubin Neg (Negative) Urine Urobilinogen Norm (Negative) mg/dL Ur Leukocyte Odalys ase 2+ H (Negative) Urine RBC 40-50 H (0-2) /hpf Urine WBC >100 H (0-5) /hpf Ur Squamous Epith Cells 0-4 H (0-5) /hpf Amorphous Sediment Not Reportable Urine Bacteria 3+ H (NONE) /hpf Discharge Plan Discharge Patient Disposition: Home Clinical Impression: UTI (urinary tract infection) Condition: Stable Prescriptions: New Bactrim DS 800-160 mg tablet 1 tab PO BID 10 Days Qty: 20 RF: 0 No Action omeprazole 20 mg capsule,delayed release(DR/EC) 20 mg PO DAILY@0900 RF: 0 lactulose 10 gram/15 mL solution 15 ml PO DAILY PRN (Reason: Constipation) RF: 0 Zyrtec 10 mg Tablet 10 mg PO DAILY RF: 0 docusate sodium 100 mg Capsule 100 mg PO BID RF: 0 Discharge Orders: Discharge ED (Routine); Ordered 04/29/21 Ordered By: Chad Vaughn Referrals: Olivia Black DO [Primary Care Provider] - Discharge Diet: Advance as tolerated Discharge Activity: Resume usual activity Patient Instructions: Opioid Safety Activity Restrictions/Additional Instructions: Have a urine infection. Please take the antibiotics for 10 days and return to the ER with worsening symptoms at any time. Drink lots of fluids to help clear the infection. Follow-up with your primary care physician in a week to repeat testing of your urine to make sure the infection is clear. Also follow-up in a week even if you feel better as it is abnormal for males to get urinary tract infections and it needs to be discussed further with her primary doctor. Return to the ER at anytime with worsening symptoms. Coding Level of Care Code ED Digital Business Analyst for Deborah Fwd Exam Comprehensive
[2021-04-29] MEDS: cefTRIAXone 1,000 MG in sodium chloride 0.9% (plus) 50 ML 100 MG IV (12:45)
[2021-04-29] MEDS: sodium chloride 0.9% 1,000 ML 999 ML IV (12:45)
[2021-04-29] MEDS: acetaminophen 325 mg Tablet 1000 MG PO (12:51)
[2021-04-29 13:09] LABS: Basophils # 0.1 10^3/uL (0.0-0.1); Basophils % 0.4 %; Eosinophils # 0.2 10^3/uL (0.0-0.8); Eosinophils % 1.1 %; Hematocrit 42.3 % (42.0-52.0); Hemoglobin 13.4 g/dL (11.7-16.6); Lymphocytes # 2.7 10^3/uL (0.8-4.8); Lymphocytes % 15.9 %; Mean Corpuscular HGB Conc 31.7 g/dL (30.0-36.0); Mean Corpuscular Hemoglobin 29.1 pg (28.0-34.0); Mean Corpuscular Volume 91.8 fL (80-94); Mean Platelet Volume 11.4 fL (7.4-10.4); Monocytes # 1.6 10^3/uL (0.2-0.9); Monocytes % 9.4 %; Neutrophils # 12.25 10^3/uL (1.8-7.7); Neutrophils % 72.7 %; Nucleated Red Blood Cells % 0 %; Platelet Count 278 10^3/cmm (130-400); Red Blood Count 4.61 10^6/uL (4.1-5.3); Red Cell Distribution Width 13.3 % (12.1-15.1); White Blood Count 16.9 10^3/uL (4.0-10.0)
[2021-04-29 13:15] VITALS: BP 148/61; O2SAT 100
[2021-04-29 13:27] LABS: Lactate (Lactic Acid level) 0.7 mmol/L (0.5-2.2)
[2021-04-29 13:29] LABS: Alanine Aminotransferase 16 U/L (0-41); Alkaline Phosphatase 78 IU/L (40-130); Aspartate Amino Transferase 10 U/L (0-40); Blood Urea Nitrogen 9 mg/dL (6-20); Calcium 8.8 mg/dL (8.5-10.5); Carbon Dioxide 28 mmol/L (22-29); Chloride 102 mmol/L (98-107); Globulin 2.4 g/dL (1.3-4.6); Glomerular Filtration Rate 97.8 mL/min (90-130); Glucose 122 mg/dL (65-115); Lipase 13 U/L (13-60); Osmolality Calculated 286 mOsm/kg (285-295); Sodium 138 mmol/L (136-145); Total Bilirubin 0.4 mg/dL (0.15-1.2); Total Protein 6.4 g/dL (6.6-8.7)
[2021-04-29 13:38] LABS: Add Urine Microscopic? YES; Bilirubin Urine Neg (Negative); Blood Urine 3+ (Negative); Glucose Urine UA Norm (Normal); Ketones Urine Negative (Negative); Leukocyte Esterase Urine 2+ (Negative); Nitrate Urine Positive (Negative); Protein Urine 1+ (Negative); Urine Appearance Cloudy (CLEAR); Urine Color Yellow (Yellow); Urobilinogen Urine Norm (Negative); pH Urine 5 (5-7)
[2021-04-29 13:39] LABS: Add Urine Culture? Yes; Bacteria Urine 3+ /hpf; RBC Urine 40-50 /hpf (0-2); Squamous Epithelial Cell Urine 0-4 /hpf (0-5); WBC Urine >100 /hpf (0-5)
--- NOTE | 2021-04-29 13:59 | CT_ITS ---
WS: [id number] CT abdomen pelvis w con* [id number] REASON FOR EXAM: fever 103. abd pain. +UTI. pyelo? IV CONTRAST ADMINISTERED: 95 mL of Omnipaque 300 TOTAL EXAM DLP: 1910.[address] scans at [facility] use at least one of these dose optimization techniques: automat ed exposure control; mA and/or kV adjustment per patient size (includes targeted exams where dose is matched to clinical indication); or iterative reconstruction. FINDINGS: ABDOMEN: The liver and spleen are unremarkable. Gallbladder and pancreas are normal. The adrenals and kidneys are within normal limits. No renal mass, calculus, or hydronephrosis. No fin dings of polynephritis. No mass, adenopathy, focal fluid collection or free fluid is identified. No bowel abnormality is identified. Normal appendix is not identified. No inflammatory changes in the right lower quadrant. Very small umbilical hernia containing fat. Degenerative changes and mild wedging of the vertebrae at the thoracolumbar junction. No focal bone l esion. PELVIS: Mild thickening of the urinary bladder wall. No bladder calculi or distal ureteral calculi. No bladde r mass. Normal-appearing prostate. No mass, adenopathy, focal fluid collection, or free fluid. Normal bony pelvis. CT/CT abdomen pelvis w con* [id number] IMPRESSION: Mild thickening of the urinary bladder wall. No definite acute abdominal or pel kenna abnormality noted.
[2021-04-29] MEDS: iohexol 300 mg/mL 100 mL Btl IV (14:42)
[2021-04-29 15:06] VITALS: BP 133/61; PULSE 83; RESP 16; O2SAT 99
[2021-04-29 15:41] VITALS: BP 133/61; PULSE 83; RESP 16; O2SAT 99
== END 2021-04-29 15:42 | disposition home or self-care (01) ==
PROVIDERS: Emergency Provider Family Medicine; PCP Family Medicine
DX: N39.0 Urinary tract infection, site not specified (principal); E66.01 Morbid (severe) obesity due to excess calories; Z68.43 Body mass index [BMI] 50.0-59.9, adult
CPT/HCPCS: 74177; 80053; 81001; 83605; 83690; 85025; 87040; 87077; 87086; 87186; 96365; 99284; J0696; J7030; Q9967

== ENCOUNTER → 2021-05-10 13:18 | Outpatient (BNVA) | payer MEDICAID, SELFPAY | PROVIDERS: PCP Family Medicine; Visit Provider Specialist | DX: F84.0 Autistic disorder (principal); F60.9 Personality disorder, unspecified; G47.33 Obstructive sleep apnea (adult) (pediatric); R56.9 Unspecified convulsions; F45.0 Somatization disorder; R25.2 Cramp and spasm | CPT/HCPCS: 99205 ==

== ENCOUNTER → 2021-05-24 12:54 | Outpatient (BNVA) | payer MEDICAID, SELFPAY | PROVIDERS: PCP Family Medicine; Visit Provider Specialist | DX: R25.2 Cramp and spasm (principal); R41.3 Other amnesia; R20.2 Paresthesia of skin | CPT/HCPCS: 95816 ==

== ENCOUNTER → 2021-09-12 12:45 | Outpatient (BNVA) | payer MEDICAID, SELFPAY | PROVIDERS: PCP Family Medicine; Visit Provider Specialist | DX: G25.3 Myoclonus (principal); G47.33 Obstructive sleep apnea (adult) (pediatric); F84.0 Autistic disorder; E66.01 Morbid (severe) obesity due to excess calories; Z68.43 Body mass index [BMI] 50.0-59.9, adult | CPT/HCPCS: 99213 ==

== ENCOUNTER 2022-03-26 22:46 | Emergency (ER) | payer MEDICAID, SELFPAY ==
[2022-03-26 23:30] VITALS: BP 159/104; PULSE 88; RESP 18; TEMP 36.8; O2SAT 97; BMI 61.3
[2022-03-27 00:43] VITALS: BP 145/83; PULSE 88; RESP 18; TEMP 36.8; O2SAT 97
[2022-03-27 01:25] LABS: Basophils % 0.3 %; Eosinophils % 0.1 %; Hematocrit 40.6 % (42.0-52.0); Hemoglobin 13.4 g/dL (11.7-16.6); Lymphocytes # 1.3 10^3/uL (0.8-4.8); Lymphocytes % 10.7 %; Mean Corpuscular Hemoglobin 28.5 pg (28.0-34.0); Mean Corpuscular Volume 86.4 fl (80-94); Mean Platelet Volume 10.8 fL (7.4-10.4); Monocytes # 0.6 10^3/uL (0.2-0.9); Monocytes % 4.6 %; Neutrophils # 10.49 10^3/uL (1.8-7.7); Neutrophils % 83.9 %; Nucleated Red Blood Cells % 0 %; Platelet Count 280 10^3/cmm (130-400); Red Cell Distribution Width 13.2 % (12.1-15.1); White Blood Count 12.5 10^3/uL (4.0-10.0)
[2022-03-27 01:41] LABS: Alanine Aminotransferase 23 U/L (0-41); Albumin Level 4.1 g/dL (3.5-5.2); Alkaline Phosphatase 81 IU/L (40-130); Anion Gap 12.8 (5-19); Aspartate Amino Transferase 16 U/L (0-40); Blood Urea Nitrogen 11 mg/dL (6-20); Calcium 8.7 mg/dL (8.5-10.5); Carbon Dioxide 25 mmol/L (22-29); Chloride 102 mmol/L (98-107); Glomerular Filtration Rate 97.2 mL/min (90-130); Glucose 136 mg/dL (65-115); Osmolality Calculated 283 mOsm/kg (285-295); Potassium 3.8 mmol/L (3.5-5.1); Sodium 136 mmol/L (136-145); Total Bilirubin 0.4 mg/dL (0.15-1.2); Total Protein 7.1 g/dL (6.6-8.7)
[2022-03-27 01:42] LABS: Acetaminophen < 5.0 ug/mL (10-30); Salicylate < 0.3 mg/dL (3-10)
[2022-03-27 02:17] VITALS: BP 147/79; PULSE 84; RESP 18; TEMP 36.8; O2SAT 97
[2022-03-27 02:18] LABS: Add Urine Microscopic? NO; Charge for UA Resulting for Rev
--- NOTE | 2022-03-27 02:18 | ED_ITS ---
HPI - Overdose General: Chief Complaint: Overdose Stated Complaint: Overdose Opiods Time Seen by Provider: 03/27/22 00:50 Source: patient and family History of Present Illness: 31-year-old male patient here with his mother. He took 2 of his mother's 10 mg oxycodone pills along with a combination hydrocodone pill earlier in the evening. He became concerned about his kidney function and whether or not he could clear the medication. He denies any suicidal ideation. His mother is not worried about thoughts or wishes of self- harm. complaint: accidental overdose Onset (ago): hour(s) Timing confirmed by: family member How Overdose Was Discovered: family/friend present at time Context: Intentional Overdose: other Context: Accidental Overdose: wanted to get high Associated symptoms: headaches, shortness of breath, nausea/vomiting and abdominal pain Treatments Prior to Arrival: none Review of Systems Const: Denies: fever(s) Eyes: Denies: change in vision ENMT: Denies: throat pain Card: Denies: chest pain Resp: Denies: dyspnea GI: Denies: abdominal pain, nausea or vomiting [facility] ED PFSH: Medical History Morbid obesity Pannus, abdominal Surgical History H/O circumcision H/O esophagogastroduodenoscopy (07/06/20) H/O hemorrhoidectomy History of tonsillectomy and adenoidectomy Hx of appendectomy Status post colonoscopy (07/06/20) Family History Family/Other Cancer breast cancer Other Anesthesia complication CAD (coronary artery disease) Diabetes Denies family history of Bleeding disorder Social History Alcohol intake: never Household members: family Marital status: Single Current occupational status: disabled History of recent travel: No Physical Exam Const: COMMON NORMALS: no acute distress GENERAL APPEARANCE: cooperative; not ill appearing HENMT: COMMON NORMALS: normocephalic, atraumatic and Normal external nose present HEAD & SCALP: normocephalic and atraumatic FACE & SINUS: normal facial exam and face symmetric NOSE: Normal external nose present Eye: COMMON NORMALS: Equal, round and reactive pupils present and EOMs intact bilaterally PUPIL: Yes Equal, round and reactive pupils present Chest: CHEST: Yes Symmetrical chest wall rise Resp: COMMON NORMALS: normal respiratory effort, No retractions and No use of accessory muscles Cardio: COMMON NORMALS: regular rate and regular rhythm RATE: regular rate RHYTHM: regular rhythm GI: INSPECTION: Yes normal to inspection Neuro: KAVON COMA SCALE: document GCS findings K[place] coma scale eye opening: Spontaneous [place] coma scale verbal response: Orientated [place] coma scale motor response: Obey commands [place] coma scale total score: 15 Course Vital Signs: Vital signs: Vital Signs Temperature 98.3 F 03/27/22 02:26 Pulse Rate 84 03/27/22 02:26 Respiratory Rate 18 03/27/22 02:26 Blood Pressure 147/79 03/27/22 02:26 Pulse Oximetry 97 03/27/22 02:26 MDM - Overdose Medical Decision Making This patient became concerned, when the effects of the oxycodone he took lasted longer than he thought they should. He denies suicidal or homicidal ideations to me. It's my clinical opinion that he just wanted to be high. Clinically he is quite stable. Those lab indices were benign. He'll be allowed discharge. Lab Data : 03/27/22 01:17 03/27/22 01:17 Laboratory Results WBC 12.5 10^3/uL (4.0-10.0) H 03/27/22 01:17 RBC 4.70 10^6/uL (4.1-5.3) 03/27/22 01:17 Hgb 13.4 g/dL (11.7-16.6) 03/27/22 01:17 Hct 40.6 % (42.0-52.0) L 03/27/22 01:17 MCV 86.4 fl (80-94) 03/27/22 01:17 MCH 28.5 pg (28.0-34.0) 03/27/22 01:17 MCHC 33.0 g/dL (30.0-36.0) 03/27/22 01:17 RDW 13.2 % (12.1-15.1) 03/27/22 01:17 Plt Count 280 10^3/cmm (130-400) 03/27/22 01:17 MPV 10.8 fL (7.4-10.4) H 03/27/22 01:17 Neut % (Auto) 83.9 % 03/27/22 01:17 Lymph % (Auto) 10.7 % 03/27/22 01:17 [place] % (Auto) 4.6 % 03/27/22 01:17 Eos % (Auto) 0.1 % 03/27/22 01:17 Baso % (Auto) 0.3 % 03/27/22 01:17 Neut # (Auto) 10.49 10^3/uL (1.8-7.7) H 03/27/22 01:17 Lymph # (Auto) 1.3 10^3/uL (0.8-4.8) 03/27/22 01:17 [place] # (Auto) 0.6 10^3/uL (0.2-0.9) 03/27/22 01:17 Eos # (Auto) 0.0 10^3/uL (0.0-0.8) 03/27/22 01:17 Baso # (Auto) 0.0 10^3/uL (0.0-0.1) 03/27/22 01:17 Nucleated RBC % (auto) 0 % 03/27/22 01:17 Nucleated RBCs # 0.0 /100WBC 03/27/22 01:17 Sodium 136 mmol/L (136-145) 03/27/22 01:17 Potassium 3.8 mmol/L (3.5-5.1) 03/27/22 01:17 Chloride 102 mmol/L (98-107) 03/27/22 01:17 Carbon Dioxide 25 mmol/L (22-29) 03/27/22 01:17 Anion Gap 12.8 (5-19) 03/27/22 01:17 BUN 11 mg/dL (6-20) 03/27/22 01:17 Creatinine 0.9 mg/dL (0.7-1.2) 03/27/22 01:17 GFR Calculation 97.2 mL/min (90-130) 03/27/22 01:17 Glucose 136 mg/dL (65-115) H 03/27/22 01:17 Calculated Osmolality 283 mOsm/kg (285-295) L 03/27/22 01:17 Calcium 8.7 mg/dL (8.5-10.5) 03/27/22 01:17 Total Bilirubin 0.4 mg/dL (0.15-1.2) 03/27/22 01:17 AST 16 U/L (0-40) 03/27/22 01:17 ALT 23 U/L (0-41) 03/27/22 01:17 Alkaline Phosphatase 81 IU/L (40-130) 03/27/22 01:17 Total Protein 7.1 g/dL (6.6-8.7) 03/27/22 01:17 Albumin 4.1 g/dL (3.5-5.2) 03/27/22 01:17 Globulin 3.0 g/dL (1.3-4.6) 03/27/22 01:17 Urine Color Yellow (Yellow) 03/27/22 02:00 Urine Appearance Clear (CLEAR) 03/27/22 02:00 Urine pH 6 (5-7) 03/27/22 02:00 Ur Specific [place] 1.015 (1.005-1.030) 03/27/22 02:00 Urine Protein Neg (Negative) 03/27/22 02:00 Urine Glucose (UA) Norm (Normal) 03/27/22 02:00 Urine Ketones Negative (Negative) 03/27/22 02:00 Urine Blood Neg (Negative) 03/27/22 02:00 Urine Nitrate Negative (Negative) 03/27/22 02:00 Urine Bilirubin Neg (Negative) 03/27/22 02:00 Urine Urobilinogen Norm mg/dL (Negative) 03/27/22 02:00 Ur Leukocyte Esterase Negative (Negative) 03/27/22 02:00 Salicylates < 0.3 mg/dL (3-10) L 03/27/22 01:17 Urine Opiates Screen Positive ng/mL (Negative) H 03/27/22 02:00 Acetaminophen < 5.0 ug/mL (10-30) L 03/27/22 01:17 Ur Barbiturates Screen Negative ng/mL (Negative) 03/27/22 02:00 Ur Phencyclidine Scrn Negative ng/mL (Negative) 03/27/22 02:00 Ur Amphetamines Screen Negative ng/mL (Negative) 03/27/22 02:00 U Benzodiazepines Scrn Negative ng/mL (Negative) 03/27/22 02:00 Urine Cocaine Screen Negative ng/mL (Negative) 03/27/22 02:00 U Marijuana (THC) Screen Negative ng/mL (Negative) 03/27/22 02:00 Discharge Plan Discharge Patient Disposition: Home Clinical Impression: Accidental opiate poisoning Condition: Stable Prescriptions: No Action omeprazole 20 mg capsule,delayed release(DR/EC) 20 mg PO DAILY@0900 0RF Zyrtec 10 mg Tablet 10 mg PO DAILY 0RF docusate sodium 100 mg Capsule 100 mg PO BID 0RF Discharge Orders: Discharge ED (Routine); Ordered 03/27/22 Ordered By: Elie Polanco Referrals: Olivia Black DO [Primary Care Provider] - Patient Instructions: Prescription Narcotic Overdose (ED), Opioid Safety Activity Restrictions/Additional Instructions: Return for vomiting liquids, mental status changes, shortness of breath, or any thoughts or wishes to harm your self or anyone else. Coding Level of Care Code ED Client Success Specialist for Deborah Kimble
[2022-03-27 02:26] VITALS: BP 147/79; PULSE 84; RESP 18; TEMP 36.8; O2SAT 97
[2022-03-27 02:29] LABS: Amphetamines Screen Urine Negative (Negative); Barbiturates Screen Urine Negative (Negative); Benzodiazepines Screen Urine Negative (Negative); Cocaine Screen Urine Negative (Negative); Opiate Screen Urine Positive (Negative); PCP Screen Urine Negative (Negative); THC Screen Urine Negative (Negative)
[2022-03-27 02:38] LABS: Bilirubin Urine Neg (Negative); Blood Urine Neg (Negative); Glucose Urine UA Norm (Normal); Ketones Urine Negative (Negative); Leukocyte Esterase Urine Negative (Negative); Nitrate Urine Negative (Negative); Protein Urine Neg (Negative); Specific Gravity, Urine 1.015 (1.005-1.030); Urine Appearance Clear (CLEAR); Urine Color Yellow (Yellow); Urobilinogen Urine Norm (Negative); pH Urine 6 (5-7)
== END 2022-03-27 02:26 | disposition home or self-care (01) ==
PROVIDERS: Emergency Provider Emergency Medicine; PCP Family Medicine
DX: T40.2X1A Poisoning by other opioids, accidental (unintentional), initial encounter (principal)
CPT/HCPCS: 80053; 80306; 80307; 81003; 85025; 99282

== ENCOUNTER 2022-08-10 02:49 | Emergency (ER) | payer MEDICAID, SELFPAY ==
[2022-08-10 02:54] VITALS: BP 161/91; PULSE 83; RESP 15; O2SAT 96; BMI 60.5
--- NOTE | 2022-08-10 02:58 | CTR_ITS ---
PROCEDURE INFORMATION: Exam: CT Abdomen And Pelvis Without Contrast Exam date and time: 08/10/2022 3:07 AM Age: 32 years old Clinical indication: Abdominal pain; Localized; Left lower quadrant (llq); Prior surgery; Surgery type: Appy; Patient HX: C/O llq pain. History of recurrent UTI. ; Additional info: Abd pain TECHNIQUE: Imaging protocol: Computed tomography of the abdomen and pelvis without contrast. Radiation optimization: All CT scans at this facility use at least one of these dose optimization techniques: automated exposure control; mA and/or kV adjustment per patient size (includes targeted exams where dose is matched to clinical indication); or iterative reconstruction. COMPARISON: CT abdomen pelvis w con* [id number] 04/29/2021 2:36 PM RADIATION DOSE METRICS: Total DLP (mGy-cm): 1353.53 FINDINGS: Lungs: The visualized portions of the lung bases are normal. Liver: Appears unremarkable on the non-contrast CT. Gallbladder and bile ducts: No calcified stones. No ductal dilation. Pancreas: Appears unremarkable on the non-contrast CT. No ductal dilation. Spleen: Appears unremarkable on the non-contrast CT. No splenomegaly. Adrenal glands: Normal. No mass. Kidneys and ureters: Appear unremarkable on the non-contrast CT. No hydronephrosis. Stomach and bowel: The noncontrast opacified stomach appears unremarkable. The noncontrast opacified loops of small bowel in the abdomen and pelvis appear unremarkable. The noncontrast opacified loops of colon in the abdomen and pelvis show mild constipation. The lack of orally administered contrast material limits bowel assessment. Appendix: Suture line at the base of the cecum, suggestive of prior appendectomy. Recommend correlation with surgical history. Intraperitoneal space: No free air. No significant fluid collection. Vasculature: No abdominal aortic aneurysm. Lymph nodes: No enlarged lymph nodes. Urinary bladder: The bladder is not well distended with relative wall prominence. Assessment is limited. Recommend correlation with urinalysis, if there is clinical concern for cystitis. Reproductive: Unremarkable as visualized. Bones/joints: No acute osseous abnormality seen. Medium-sized disc osteophyte complex is seen at the L5-S1 level with moderate to severe degenerative facet disease changes. There is moderate left foraminal stenosis. Soft tissues: Tiny umbilical hernia is seen, containing peritoneal fat.. CT/CT abdomen pelvis wo con [id number] IMPRESSION: 1. No acute abnormality seen on the non-contrast abdominal and pelvic CT. 2. Degenerative disc disease changes at the L5-S1 level, as noted above. 3. Mild constipation.
--- NOTE | 2022-08-10 02:59 | ED_ITS ---
HPI - Abdominal Pain General: Chief Complaint: Abdominal Pain Stated Complaint: ABD Pain Time Seen by Provider: 08/10/22 02:51 Source: patient Mode of arrival: ambulatory Limitations: no limitations History of Present Illness: 32-year-old male states he has been having left lower quadrant abdominal pain for last 4 days he states has been having burning pain that is worse with palpation improved with rest. States pain currently is a 6 out of 10 states it started suddenly 4 days ago he denies any vomiting denies any diarrhea denies any dysuria he denies any fevers. Associated Symptoms: Denies chills, dysuria and fever(s) Review of Systems Const: Denies: fever(s), chills, body aches or change in appetite Eyes: Denies: blurry vision or eye discomfort ENMT: Denies: throat pain or dental pain Card: Denies: chest pain Resp: Denies: dyspnea GI: Reports: abdominal pain : Denies: dysuria Musc: Denies: neck pain or back pain Skin/Breast: Denies: rash Neuro: Denies: headache(s) Psych: Denies: depression Johnny/Lymph: Denies: easy bruising All/Imm: Denies: urticaria PFSH ED PFSH: Medical History Morbid obesity Pannus, abdominal Surgical History H/O circumcision H/O esophagogastroduodenoscopy (07/06/20) H/O hemorrhoidectomy History of tonsillectomy and adenoidectomy Hx of appendectomy Status post colonoscopy (07/06/20) Family History Family/Other Cancer breast cancer Other Anesthesia complication CAD (coronary artery disease) Diabetes Denies family history of Bleeding disorder Social History Alcohol intake: never Household members: family Marital status: Single Current occupational status: disabled History of recent travel: No Physical Exam Const: COMMON NORMALS: no acute distress, patient oriented x3 and healthy appearing HENMT: COMMON NORMALS: normocephalic and atraumatic HEAD & SCALP: normocephalic and atraumatic Eye: COMMON NORMALS: Equal, round and reactive pupils present and EOMs intact bilaterally PUPIL: Yes Equal, round and reactive pupils present Neck/C-Spine: COMMON NORMALS: full ROM and supple Chest: COMMONS NORMALS: normal inspection of the chest and normal palpation of entire chest wall Resp: COMMON NORMALS: normal respiratory effort, No retractions, No use of accessory muscles and clear to auscultation bilaterally AUSCULTATION: clear to auscultation bilaterally Cardio: COMMON NORMALS: regular rate, regular rhythm and No murmurs present (Cardio) RATE: regular rate RHYTHM: regular rhythm GI: COMMON NORMALS: Normal to inspection, nondistended, normoactive bowel sounds present, Soft to palpation and no masses PALPATION: Yes Soft to palpation and Yes Tenderness to palpation present (GI) Details: LLQ Extremity: COMMON NORMALS: normal to inspection and full ROM Neuro: COMMON NORMALS: patient oriented x3, moves all extremities and no focal motor deficits Psych: COMMON NORMALS: mental status grossly normal, Normal thought process present and cooperative THOUGHT PROCESS: Normal thought process present Skin: COMMON NORMALS: no rashes or lesions noted and no wounds GENERAL SKIN EXAM: no rashes or lesions noted Course Vital Signs: Vital signs: Vital Signs Pulse Rate 83 08/10/22 02:54 Respiratory Rate 17 08/10/22 03:34 Blood Pressure 161/91 08/10/22 02:54 Pulse Oximetry 96 08/10/22 02:54 Oxygen Delivery Me thod 08/10/22 02:54 MDM - Abdominal Pain Medical Decision Making Patient presents with abdominal pain his blood work and CT scan here are normal he feels improved he is stable for discharge he is to follow-up with PCP and return if worsening. Lab Data : 08/10/22 03:04 08/10/22 03:04 Labs/Radiology: Radiology Impressions Abdomen/Pelvis CT 08/10/22 02:58 IMPRESSION: 1. No acute abnormality seen on the non-contrast abdominal and pelvic CT. 2. Degenerative disc disease changes at the L5-S1 level, as noted above. 3. Mild constipation. Laboratory Results WBC 10.2 10^3/uL (4.0-10.0) H 08/10/22 03:04 RBC 4.49 10^6/uL (4.1-5.3) 08/10/22 03:04 Hgb 12.9 g/dL (11.7-16.6) 08/10/22 03:04 Hct 40.4 % (42.0-52.0) L 08/10/22 03:04 MCV 90.0 fl (80-94) 08/10/22 03:04 MCH 28.7 pg (28.0-34.0) 08/10/22 03:04 MCHC 31.9 g/dL (30.0-36.0) 08/10/22 03:04 RDW 13.3 % (12.1-15.1) 08/10/22 03:04 Plt Count 255 10^3/cmm (130-400) 08/10/22 03:04 MPV 11.0 fL (7.4-10.4) H 08/10/22 03:04 Neut % (Auto) 55.1 % 08/10/22 03:04 Lymph % (Auto) 31.0 % 08/10/22 03:04 [place] % (Auto) 10.0 % 08/10/22 03:04 Eos % (Auto) 3.0 % 08/10/22 03:04 Baso % (Auto) 0.5 % 08/10/22 03:04 Neut # (Auto) 5.61 10^3/uL (1.8-7.7) 08/10/22 03:04 Lymph # (Auto) 3.2 10^3/uL (0.8-4.8) 08/10/22 03:04 [place] # (Auto) 1.0 10^3/uL (0.2-0.9) H 08/10/22 03:04 Eos # (Auto) 0.3 10^3/uL (0.0-0.8) 08/10/22 03:04 Baso # (Auto) 0.1 10^3/uL (0.0-0.1) 08/10/22 03:04 Nucleated RBC % (auto) 0 % 08/10/22 03:04 Nucleated RBCs # 0.0 /100WBC 08/10/22 03:04 Sodium 138 mmol/L (136-145) 08/10/22 03:04 Potassium 4.0 mmol/L (3.5-5.1) 08/10/22 03:04 Chloride 103 mmol/L (98-107) 08/10/22 03:04 Carbon Dioxide 27 mmol/L (22-29) 08/10/22 03:04 Anion Gap 12.0 (5-19) 08/10/22 03:04 BUN 8 mg/dL (6-20) 08/10/22 03:04 Creatinine 0.8 mg/dL (0.7-1.2) 08/10/22 03:04 GFR Calculation 110.7 mL/min (90-130) 08/10/22 03:04 Glucose 110 mg/dL (65-115) 08/10/22 03:04 Calculated Osmolality 285 mOsm/kg (285-295) 08/10/22 03:04 Calcium 9.2 mg/dL (8.5-10.5) 08/10/22 03:04 Total Bilirubin 0.4 mg/dL (0.15-1.2) 08/10/22 03:04 AST 12 U/L (0-40) 08/10/22 03:04 ALT 18 U/L (0-41) 08/10/22 03:04 Alkaline Phosphatase 86 U/L (40-130) 08/10/22 03:04 Total Protein 6.8 g/dL (6.6-8.7) 08/10/22 03:04 Albumin 3.9 g/dL (3.5-5.2) 08/10/22 03:04 Globulin 2.9 g/dL (1.3-4.6) 08/10/22 03:04 Lipase 17 U/L (13-60) 08/10/22 03:04 Urine Color Colorless (Yellow) 08/10/22 04:00 Urine Appearance Clear (CLEAR) 08/10/22 04:00 Urine pH 7 (5-7) 08/10/22 04:00 Ur Specific [place] 1.010 (1.005-1.030) 08/10/22 04:00 Urine Protein Neg (Negative) 08/10/22 04:00 Urine Glucose (UA) Norm (Normal) 08/10/22 04:00 Urine Ketones Negative (Negative) 08/10/22 04:00 Urine Blood Neg (Negative) 08/10/22 04:00 Urine Nitrate Negative (Negative) 08/10/22 04:00 Urine Bilirubin Neg (Negative) 08/10/22 04:00 Urine Urobilinogen Norm mg/dL (Negative) 08/10/22 04:00 Ur Leukocyte Esterase Negative (Negative) 08/10/22 04:00 Discharge Plan Discharge Patient Disposition: Home Clinical Impression: Abdominal pain Qualifiers: Abdominal location: unspecified location Qualified Code(s): R10.9 - Unspecified abdominal pain Condition: Stable Prescriptions: New Reglan 10 mg tablet 10 mg PO Q6H PRN (Reason: nausea and vomiting) Qty: 20 0RF No Action omeprazole 20 mg capsule,delayed release(DR/EC) 20 mg PO DAILY@0900 Zyrtec 10 mg Tablet 10 mg PO DAILY docusate sodium 100 mg Capsule 100 mg PO BID Discharge Orders: Discharge ED (Routine); Ordered 08/10/22 Ordered By: Sebastian Stewart Referrals: Olivia Black DO [Primary Care Provider] - 1-3 days Discharge Diet: Advance as tolerated Discharge Activity: Resume usual activity Patient Instructions: Abdominal Pain (ED) Coding Level of Care Code ED Information Engineer for Chg Fwd Exam Comprehensive
[2022-08-10 03:11] LABS: Basophils # 0.1 10^3/uL (0.0-0.1); Basophils % 0.5 %; Eosinophils # 0.3 10^3/uL (0.0-0.8); Hematocrit 40.4 % (42.0-52.0); Hemoglobin 12.9 g/dL (11.7-16.6); Lymphocytes # 3.2 10^3/uL (0.8-4.8); Mean Corpuscular HGB Conc 31.9 g/dL (30.0-36.0); Mean Corpuscular Hemoglobin 28.7 pg (28.0-34.0); Neutrophils # 5.61 10^3/uL (1.8-7.7); Neutrophils % 55.1 %; Nucleated Red Blood Cells % 0 %; Platelet Count 255 10^3/cmm (130-400); Red Blood Count 4.49 10^6/uL (4.1-5.3); Red Cell Distribution Width 13.3 % (12.1-15.1); White Blood Count 10.2 10^3/uL (4.0-10.0)
[2022-08-10 03:30] LABS: Alanine Aminotransferase 18 U/L (0-41); Albumin Level 3.9 g/dL (3.5-5.2); Alkaline Phosphatase 86 U/L (40-130); Aspartate Amino Transferase 12 U/L (0-40); Blood Urea Nitrogen 8 mg/dL (6-20); Calcium 9.2 mg/dL (8.5-10.5); Carbon Dioxide 27 mmol/L (22-29); Chloride 103 mmol/L (98-107); Globulin 2.9 g/dL (1.3-4.6); Glomerular Filtration Rate 110.7 mL/min (90-130); Glucose 110 mg/dL (65-115); Lipase 17 U/L (13-60); Osmolality Calculated 285 mOsm/kg (285-295); Sodium 138 mmol/L (136-145); Total Bilirubin 0.4 mg/dL (0.15-1.2); Total Protein 6.8 g/dL (6.6-8.7)
[2022-08-10 03:34] VITALS: RESP 17
[2022-08-10] MEDS: morphine 4 mg/mL SDV 1 mL IVP (03:34)
[2022-08-10] MEDS: sodium chloride 0.9% 1,000 ML 999 ML IV (03:34)
[2022-08-10] MEDS: ondansetron 2 mg/ML SDV 2 mL 4 MG IVP (03:34)
[2022-08-10 04:12] LABS: Add Urine Microscopic? NO; Charge for UA Resulting for Rev
[2022-08-10 04:34] LABS: Bilirubin Urine Neg (Negative); Blood Urine Neg (Negative); Glucose Urine UA Norm (Normal); Ketones Urine Negative (Negative); Leukocyte Esterase Urine Negative (Negative); Nitrate Urine Negative (Negative); Protein Urine Neg (Negative); Urine Appearance Clear (CLEAR); Urine Color Colorless (Yellow); Urobilinogen Urine Norm (Negative); pH Urine 7 (5-7)
[2022-08-10 04:46] VITALS: BP 127/71; PULSE 72; RESP 19; O2SAT 98
== END 2022-08-10 04:51 | disposition home or self-care (01) ==
PROVIDERS: Emergency Provider Emergency Medicine; PCP Family Medicine
DX: R10.9 Unspecified abdominal pain (principal)
CPT/HCPCS: 74176; 80053; 81003; 83690; 85025; 96361; 96374; 96375; 99285; J2270; J2405; J7030

== ENCOUNTER 2023-03-02 05:50 | Emergency (ER) | payer MEDICAID, SELFPAY ==
[2023-03-02 05:51] VITALS: BP 180/115; PULSE 100; RESP 20; TEMP 37.1; O2SAT 97; BMI 48.4
--- NOTE | 2023-03-02 05:59 | XRR_ITS ---
PROCEDURE INFORMATION: Exam: XR Chest Exam date and time: 03/02/2023 7:00 AM Age: 32 years old Clinical indication: Other: Chest pain; Additional info: Cp TECHNIQUE: Imaging protocol: Radiologic exam of the chest. Views: 1 view. COMPARISON: CR XR chest 1V portable [id number] 01/14/2021 1:48 PM FINDINGS: Lungs: Lung volumes are low. There is no consolidation. Pleural spaces: There is no pleural effusion or pneumothorax. Heart/Mediastinum: Cardiomediastinal contours are unremarkable. Bones/joints: Bones are unremarkable. XR/XR chest 1V portable [id number] IMPRESSION: 1. No acute findings. 2. Limited exam due to low lung volumes.
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
--- NOTE | 2023-03-02 06:01 | ED_ITS ---
HPI - Chest Pain General: Chief Complaint: Chest Pain Stated Complaint: CP Time Seen by Provider: 03/02/23 05:55 Source: patient and EMS Mode of arrival: EMS Limitations: no limitations History of Present Illness: 32-year-old male who is here from [facility]. He states has been in [facility] for 6 months he states that tonight his cellmate was acting psychotic and it caused him to get worked up and anxious. He states he started having some chest pain and felt like he was having palpitations. States his symptoms have improved since leaving the alf. He denies any pain currently denies any fevers denies any worsening proving factors. Associated symptoms: Reports palpitations; Deny abdominal pain, dyspnea, fever(s), nausea or vomiting Review of Systems Const: Denies: fever(s), chills, body aches or change in appetite ENMT: Denies: throat pain or dental pain Card: Reports: chest pain and palpitations Resp: Denies: dyspnea GI: Denies: abdominal pain, nausea, vomiting or diarrhea : Denies: dysuria Musc: Denies: neck pain or back pain Skin/Breast: Denies: rash Neuro: Denies: headache(s) Psych: Denies: depression Johnny/Lymph: Denies: easy bruising All/Imm: Denies: urticaria PFSH ED PFSH: Medical History Morbid obesity Pannus, abdominal Surgical History H/O circumcision H/O esophagogastroduodenoscopy (07/06/20) H/O hemorrhoidectomy History of tonsillectomy and adenoidectomy Hx of appendectomy Status post colonoscopy (07/06/20) Family History Family/Other Cancer breast cancer Other Anesthesia complication CAD (coronary artery disease) Diabetes Denies family history of Bleeding disorder Social History Alcohol intake: never Substance/Drug Use: never Household members: family Marital status: Single Current occupational status: disabled Physical Exam Const: COMMON NORMALS: no acute distress, patient oriented x3 and healthy appearing HENMT: COMMON NORMALS: normocephalic and atraumatic HEAD & SCALP: normocephalic and atraumatic Eye: COMMON NORMALS: conjunctivae normal CONJUNCTIVA: Yes conjunctivae normal Neck/C-Spine: COMMON NORMALS: full ROM and supple Chest: COMMONS NORMALS: normal inspection of the chest and normal palpation of entire chest wall Resp: COMMON NORMALS: normal respiratory effort, No retractions, No use of accessory muscles and clear to auscultation bilaterally AUSCULTATION: clear to auscultation bilaterally Cardio: COMMON NORMALS: regular rate, regular rhythm and No murmurs present (Cardio) RATE: regular rate RHYTHM: regular rhythm GI: INSPECTION: Yes normal to inspection Extremity: COMMON NORMALS: normal to inspection and full ROM Neuro: COMMON NORMALS: patient oriented x3, moves all extremities and no focal motor deficits Psych: COMMON NORMALS: mental status grossly normal, Normal thought process present and cooperative THOUGHT PROCESS: Normal thought process present Skin: COMMON NORMALS: no rashes or lesions noted and no wounds GENERAL SKIN EXAM: no rashes or lesions noted Course Vital Signs: Vital signs: Vital Signs Temperature 98.8 F 03/02/23 05:51 Pulse Rate 103 H 03/02/23 06:31 Respiratory Rate 16 03/02/23 06:31 Blood Pressure 135/106 03/02/23 06:31 Pulse Oximetry 99 03/02/23 06:31 MDM - Chest Pain Medical Decision Making Patient presents for chest pains atypical in nature troponin and EKG here are normal is likely from anxiety has no signs of dissection or pulmonary embolism he is stable for discharge back to the alf he is return if worsening. His initial blood pressure was incorrect Medical Records I reviewed the patient's medical records. Lab Data I reviewed the patient's lab results. 03/02/23 Unknown 03/02/23 Unknown Laboratory Results WBC 11.8 10^3/uL (4.0-10.0) H 03/02/23 Unknown RBC 4.46 10^6/uL (4.1-5.3) 03/02/23 Unknown Hgb 12.8 g/dL (11.7-16.6) 03/02/23 Unknown Hct 41.0 % (42.0-52.0) L 03/02/23 Unknown MCV 91.9 fl (80-94) 03/02/23 Unknown MCH 28.7 pg (28.0-34.0) 03/02/23 Unknown MCHC 31.2 g/dL (30.0-36.0) 03/02/23 Unknown RDW 14.3 % (12.1-15.1) 03/02/23 Unknown Plt Count 277 10^3/cmm (130-400) 03/02/23 Unknown MPV 12.4 fL (7.4-10.4) H 03/02/23 Unknown Neut % (Auto) 71.8 % 03/02/23 Unknown Lymph % (Auto) 15.5 % 03/02/23 Unknown Mobile % (Auto) 10.2 % 03/02/23 Unknown Eos % (Auto) 1.8 % 03/02/23 Unknown Baso % (Auto) 0.4 % 03/02/23 Unknown Neut # (Auto) 8.48 10^3/uL (1.8-7.7) H 03/02/23 Unknown Lymph # (Auto) 1.8 10^3/uL (0.8-4.8) 03/02/23 Unknown Mobile # (Auto) 1.2 10^3/uL (0.2-0.9) H 03/02/23 Unknown Eos # (Auto) 0.2 10^3/uL (0.0-0.8) 03/02/23 Unknown Baso # (Auto) 0.1 10^3/uL (0.0-0.1) 03/02/23 Unknown Nucleated RBC % (auto) 0 % 03/02/23 Unknown Nucleated RBCs # 0.0 /100WBC 03/02/23 Unknown Sodium 140 mmol/L (136-145) 03/02/23 Unknown Potassium 3.9 mmol/L (3.5-5.1) 03/02/23 Unknown Chloride 103 mmol/L (98-107) 03/02/23 Unknown Carbon Dioxide 26 mmol/L (22-29) 03/02/23 Unknown Anion Gap 14.9 (5-19) 03/02/23 Unknown BUN 7 mg/dL (6-20) 03/02/23 Unknown Creatinine 0.9 mg/dL (0.7-1.2) 03/02/23 Unknown GFR Calculation 96.6 mL/min (90-130) 03/02/23 Unknown Glucose 118 mg/dL (65-115) H 03/02/23 Unknown Calculated Osmolality 289 mOsm/kg (285-295) 03/02/23 Unknown Calcium 9.1 mg/dL (8.5-10.5) 03/02/23 Unknown Total Bilirubin 0.6 mg/dL (0.15-1.2) 03/02/23 Unknown AST 34 U/L (0-40) 03/02/23 Unknown ALT 54 U/L (0-41) H 03/02/23 Unknown Alkaline Phosphatase 74 U/L (40-130) 03/02/23 Unknown Troponin T Baseline 15 ng/L (0-15) 03/02/23 Unknown Total Protein 6.1 g/dL (6.6-8.7) L 03/02/23 Unknown Albumin 4.0 g/dL (3.5-5.2) 03/02/23 Unknown Globulin 2.1 g/dL (1.3-4.6) 03/02/23 Unknown EKG Data EKG 1: I personally reviewed and interpreted this EKG as follows: EKG interpretation date: 03/02/23 EKG interpretation time: 05:55 Interpretation: nsr hr [address] or t wave abnormalities qrs 106 qtc 413 Discharge Plan Discharge Patient Disposition: Home Clinical Impression: Chest pain Condition: Stable Prescriptions: No Action omeprazole 20 mg capsule,delayed release(DR/EC) 20 mg PO DAILY@0900 Zyrtec 10 mg Tablet 10 mg PO DAILY docusate sodium 100 mg Capsule 100 mg PO BID Reglan 10 mg tablet 10 mg PO Q6H PRN (Reason: nausea and vomiting) Qty: 20 0RF Discharge Orders: Discharge ED (Routine); Ordered 03/02/23 Ordered By: Sebastian Stewart Referrals: Olivia Black DO [Primary Care Provider] - 1-3 days Discharge Diet: Advance as tolerated Discharge Activity: Resume usual activity Patient Instructions: Chest Pain (ED) Coding Level of Care Code ED Director Of Rehabilitation for Deborah Kimble
[2023-03-02 06:08] VITALS: BP 140/91
[2023-03-02 06:20] LABS: Basophils # 0.1 10^3/uL (0.0-0.1); Basophils % 0.4 %; Eosinophils # 0.2 10^3/uL (0.0-0.8); Eosinophils % 1.8 %; Hemoglobin 12.8 g/dL (11.7-16.6); Lymphocytes # 1.8 10^3/uL (0.8-4.8); Lymphocytes % 15.5 %; Mean Corpuscular HGB Conc 31.2 g/dL (30.0-36.0); Mean Corpuscular Hemoglobin 28.7 pg (28.0-34.0); Mean Corpuscular Volume 91.9 fl (80-94); Mean Platelet Volume 12.4 fL (7.4-10.4); Monocytes # 1.2 10^3/uL (0.2-0.9); Monocytes % 10.2 %; Neutrophils # 8.48 10^3/uL (1.8-7.7); Neutrophils % 71.8 %; Nucleated Red Blood Cells % 0 %; Platelet Count 277 10^3/cmm (130-400); Red Blood Count 4.46 10^6/uL (4.1-5.3); Red Cell Distribution Width 14.3 % (12.1-15.1); White Blood Count 11.8 10^3/uL (4.0-10.0)
[2023-03-02 06:31] VITALS: BP 135/106; PULSE 103; RESP 16; O2SAT 99
[2023-03-02 06:36] LABS: Alanine Aminotransferase 54 U/L (0-41); Alkaline Phosphatase 74 U/L (40-130); Anion Gap 14.9 (5-19); Aspartate Amino Transferase 34 U/L (0-40); Blood Urea Nitrogen 7 mg/dL (6-20); Calcium 9.1 mg/dL (8.5-10.5); Carbon Dioxide 26 mmol/L (22-29); Chloride 103 mmol/L (98-107); Creatinine Clr Calc Pharmacy 151.6572; Globulin 2.1 g/dL (1.3-4.6); Glomerular Filtration Rate 96.6 mL/min (90-130); Glucose 118 mg/dL (65-115); Osmolality Calculated 289 mOsm/kg (285-295); Potassium 3.9 mmol/L (3.5-5.1); Sodium 140 mmol/L (136-145); Total Bilirubin 0.6 mg/dL (0.15-1.2); Total Protein 6.1 g/dL (6.6-8.7)
[2023-03-02 06:43] LABS: Troponin(5th) Baseline 15 ng/L (0-15)
[2023-03-02 07:09] VITALS: BP 145/78; PULSE 98; O2SAT 100
== END 2023-03-02 07:14 | disposition home or self-care (01) ==
PROVIDERS: Emergency Provider Emergency Medicine; PCP Family Medicine
DX: R07.9 Chest pain, unspecified (principal)
CPT/HCPCS: 71045; 80053; 84484; 85025; 93005; 99285

== ENCOUNTER 2023-10-05 04:37 | Emergency (ER) | payer MEDICAID, SELFPAY ==
[2023-10-05 04:38] VITALS: BP 122/68; PULSE 101; RESP 18; TEMP 36.4; O2SAT 97; BMI 37.1
--- NOTE | 2023-10-05 04:41 | CTR_ITS ---
PROCEDURE INFORMATION: Exam: CT Head Without Contrast Exam date and time: 10/05/2023 5:02 AM Age: 33 years old Clinical indication: Injury or trauma; Fall; Altered mental status/memory loss; Additional info: Fall, AMS, head lac TECHNIQUE: Imaging protocol: Computed tomography of the head without contrast. Radiation optimization: All CT scans at this facility use at least one of these dose optimization techniques: automated exposure control; mA and/or kV adjustment per patient size (includes targeted exams where dose is matched to clinical indication); or iterative reconstruction. COMPARISON: CT head wo con* [id number] 12/09/2020 5:51 PM RADIATION DOSE METRICS: Total DLP (mGy-cm): 1205.38 FINDINGS: Brain: Normal. No hemorrhage. Unremarkable white matter. No mass effect. Cerebral ventricles: No ventriculomegaly. Paranasal sinuses: Visualized sinuses are unremarkable. No fluid levels. Mastoid air cells: Visualized mastoid air cells are well aerated. Bones/joints: Unremarkable. No acute fracture. Soft tissues: There is a left posterior scalp laceration with mild swelling. CT/CT head wo con* [id number] IMPRESSION: No acute intracranial injury.
--- NOTE | 2023-10-05 04:41 | CTR_ITS ---
PROCEDURE INFORMATION: Exam: CT Cervical Spine Without Contrast Exam date and time: 10/05/2023 5:04 AM Age: 33 years old Clinical indication: Injury or trauma; Fall; Additional info: Fall AMS TECHNIQUE: Imaging protocol: Computed tomography of the cervical spine without contrast. Radiation optimization: All CT scans at this facility use at least one of these dose optimization techniques: automated exposure control; mA and/or kV adjustment per patient size (includes targeted exams where dose is matched to clinical indication); or iterative reconstruction. COMPARISON: CT head wo con* [id number] 10/05/2023 5:02 AM RADIATION DOSE METRICS: Total DLP (mGy-cm): 361.67 FINDINGS: Bones/joints: No acute fracture. Normal alignment. C2-C3: No significant disc bulge or herniation. No severe spinal canal stenosis. No significant neural foraminal narrowing. C3-C4: No significant disc bulge or herniation. No severe spinal canal stenosis. No significant neural foraminal narrowing. C4-C5: No significant disc bulge or herniation. No severe spinal canal stenosis. No significant neural foraminal narrowing. C5-C6: No significant disc bulge or herniation. No severe spinal canal stenosis. No significant neural foraminal narrowing. C6-C7: No significant disc bulge or herniation. No severe spinal canal stenosis. No significant neural foraminal narrowing. C7-T1: No significant disc bulge or herniation. No severe spinal canal stenosis. No significant neural foraminal narrowing. Lungs: Lung apices are normal. Soft tissues: Unremarkable. CT/CT cervical spin wo con* [id number] IMPRESSION: No acute findings.
--- NOTE | 2023-10-05 04:49 | ED_ITS ---
HPI - Fall 2 General: Chief Complaint: Fall Stated Complaint: FALL/AMS History of Present Illness: Patient is brought in by police secondary to slip and fall in the [facility]. Patient hit his head and has a laceration to the back of his head. Patient is slow to respond but does respond appropriate. Patient is in c-collar per EMS. Patient is able to answer questions and follow simple commands. Unknown loss of consciousness. unknown downtime. Review of Systems 2 General: Reports: 10 or more systems reviewed and unremarkable except in HPI and below PFSH ED 2 PFSH: Medical History Pannus, abdominal Morbid obesity Surgical History Status post colonoscopy (07/06/20) H/O esophagogastroduodenoscopy (07/06/20) Hx of appendectomy History of tonsillectomy and adenoidectomy H/O hemorrhoidectomy H/O circumcision Family History Family/Other Cancer breast cancer Other Anesthesia complication CAD (coronary artery disease) Diabetes Denies family history of Bleeding disorder Social History Alcohol intake: never Substance/Drug Use: never Household members: family Marital status: Single Current occupational status: disabled Physical Exam 2 Const: COMMON NORMALS: no acute distress, average body habitus, no limitations, alert and well nourished HENMT: COMMON NORMALS: normocephalic, hearing grossly normal bilaterally, external ears normal, Normal external nose present, moist oral mucous membranes and oropharynx normal; head/scalp not atraumatic (Laceration occipital region) HEAD & SCALP: n ormocephalic; not atraumatic (Laceration occipital region) NOSE: Normal external nose present EXTERNAL EAR: Yes external ears normal Eye: COMMON NORMALS: Equal, round and reactive pupils present, EOMs intact bilaterally, conjunctivae normal and no scleral icterus CONJUNCTIVA: Yes conjunctivae normal PUPIL: Yes Equal, round and reactive pupils present Neck/C-Spine: COMMON NORMALS: no JVD OTHER: In c-collar Chest: COMMONS NORMALS: normal inspection of the chest and normal palpation of entire chest wall Resp: COMMON NORMALS: normal respiratory effort, No retractions, No use of accessory muscles and clear to auscultation bilaterally AUSCULTATION: clear to auscultation bilaterally Cardio: COMMON NORMALS: no JVD, regular rate, regular rhythm, S1 normal heart sound present, S2 normal heart sound present, No gallops present (Cardio), No clicks present (Cardio), No murmurs present (Cardio) and No rub (Cardio) R ATE: regular rate RHYTHM: regular rhythm HEART SOUNDS: S1 normal heart sound present and S2 normal heart sound present GI: COMMON NORMALS: Normal to inspection, nondistended, normoactive bowel sounds present, Soft to palpation, non-tender, No hepatosplenomegaly present and no masses PALPATION: Yes Soft to palpation and Yes No hepatosplenomegaly present Neuro: SENSORIUM/ORIENTATION: Yes alert Skin: NARRATIVE SKIN EXAM: Approximately 5 cm laceration in a irregular pattern to the left posterior occipital region. Procedures Laceration Laceration 1: Site: scalp Size (cm): 5 Description: irregular Depth: simple, single layer Pre-repair: wound explored and deep structures intact Skin layer closed with: other ([place]) Number of sutures: 10 Course 2 Vital Signs: Vital signs: Vital Signs Temperature 97.6 F 10/05/23 04:38 Pulse Rate 100 10/05/23 06:08 Respiratory Rate 18 10/05/23 04:38 Blood Pressure 137/95 10/05/23 06:08 Pulse Oximetry 100 10/05/23 06:08 Oxygen Delivery Me thod Room Air 10/05/23 06:08 MDM - Fall Medical Decision Making Patient presented to the ER after slipping and falling and hitting the back of his head. Patient had a head CT which showed no acute intracranial injury, neck CT showed no acute findings, lab work was benign. Patient had approximately a 5 cm complex laceration of his posterior left occipital skull region it was closed with approximately 10 joon. Bleeding is controlled patient tolerated procedure well with no complications. Patient was given 4 mg Zofran for his nausea. Patient be [facility] the [facility]. Differential Diagnosis Unlikely syncope, dislocation of shoulder region, fracture of wrist, compression fracture, concussion with loss of consciousness or concussion without loss of consciousness Medical Records I reviewed the patient's medical records. Lab Data I reviewed the patient's lab results. 10/05/23 04:42 10/05/23 04:42 Radiology Impressions Cervical Spine CT 10/05/23 04:41 IMPRESSION: No acute findings. Head CT 10/05/23 04:41 IMPRESSION: No acute intracranial injury. Laboratory Results WBC 7.16 10^3/uL (3.29-11.43) 10/05/23 04:42 RBC 4.60 10^6/uL (3.85-5.65) 10/05/23 04:42 Hgb 14.10 g/dL (11.27-16.99) 10/05/23 04:42 Hct 41.8 % (37-53) 10/05/23 04:42 MCV 90.9 fl (82-101) 10/05/23 04:42 MCH 30.7 pg (27-33) 10/05/23 04:42 MCHC 33.7 g/dL (30-55) 10/05/23 04:42 RDW 13.2 % (12.1-15.1) 10/05/23 04:42 Plt Count 183 10^3/cmm (157-399) 10/05/23 04:42 MPV 12.3 fL (7.4-10.4) H 10/05/23 04:42 Neut % (Auto) 78.6 % 10/05/23 04:42 Lymph % (Auto) 6.6 % 10/05/23 04:42 [place] % (Auto) 12.7 % 10/05/23 04:42 Eos % (Auto) 0.4 % 10/05/23 04:42 Baso % (Auto) 0.4 % 10/05/23 04:42 Neut # (Auto) 5.63 10^3/uL (1.8-7.7) 10/05/23 04:42 Lymph # (Auto) 0.5 10^3/uL (0.8-4.8) L 10/05/23 04:42 [place] # (Auto) 0.9 10^3/uL (0.2-0.9) 10/05/23 04:42 Eos # (Auto) 0.0 10^3/uL (0.0-0.8) 10/05/23 04:42 Baso # (Auto) 0.0 10^3/uL (0.0-0.1) 10/05/23 04:42 Nucleated RBC % (auto) 0 % 10/05/23 04:42 Nucleated RBCs # 0.0 /100WBC 10/05/23 04:42 PT 14.80 SECONDS (12.1-14.9) 10/05/23 04:42 INR 1.12 (0.8-1.2) 10/05/23 04:42 Sodium 139 mmol/L (136-145) 10/05/23 04:42 Potassium 3.7 mmol/L (3.5-5.1) 10/05/23 04:42 Chloride 103 mmol/L (98-107) 10/05/23 04:42 Carbon Dioxide 24 mmol/L (22-29) 10/05/23 04:42 Anion Gap 15.7 (5-19) 10/05/23 04:42 BUN 9 mg/dL (6-20) 10/05/23 04:42 Creatinine 0.8 mg/dL (0.7-1.2) 10/05/23 04:42 GFR Calculation 110.0 mL/min (90-130) 10/05/23 04:42 Glucose 107 mg/dL (65-115) 10/05/23 04:42 Calculated Osmolality 287 mOsm/kg (285-295) 10/05/23 04:42 Calcium 9.6 mg/dL (8.5-10.5) 10/05/23 04:42 Total Bilirubin 0.8 mg/dL (0.15-1.2) 10/05/23 04:42 AST 18 U/L (0-40) 10/05/23 04:42 ALT 17 U/L (0-41) 10/05/23 04:42 Alkaline Phosphatase 79 U/L (40-130) 10/05/23 04:42 Total Protein 6.8 g/dL (6.6-8.7) 10/05/23 04:42 Albumin 4.1 g/dL (3.5-5.2) 10/05/23 04:42 Globulin 2.7 g/dL (1.3-4.6) 10/05/23 04:42 All radiology interpretation(s) finalized by discharge Discharge Plan Discharge Patient Disposition: Home Clinical Impression: Fall Qualifiers: Encounter type: initial encounter Qualified Code(s): W19.XXXA - Unspecified fall, initial encounter Laceration of scalp Qualifiers: Encounter type: initial encounter Qualified Code(s): S01.01XA - Laceration without foreign body of scalp, initial encounter Concussion Qualifiers: Encounter type: initial encounter Loss of consciousness presence/duration: u nknown LOC status Qualified Code(s): S06.0XAA - Concussion with loss of consciousness status unknown, initial encounter Condition: Stable Prescriptions: New ondansetron HCl 4 mg tablet 4 mg PO Q8H PRN (Reason: nausea and vomiting) Qty: 14 0RF cephalexin 500 mg tablet 500 mg PO Q6H 7 Days Qty: 28 0RF No Action omeprazole 20 mg capsule,delayed release(DR/EC) 20 mg PO DAILY@0900 Zyrtec 10 mg Tablet 10 mg PO DAILY docusate sodium 100 mg Capsule 100 mg PO BID Reglan 10 mg tablet 10 mg PO Q6H PRN (Reason: nausea and vomiting) Qty: 20 0RF Discharge Orders: Discharge ED (Routine); Ordered 10/05/23 Ordered By: Martell Bae Referrals: Olivia Black DO [Primary Care Provider] - 7-10 days Patient Instructions: Concussion/Head Injury - Adult, Scalp Laceration, Opioid Safety, Pain Management Activity Restrictions/Additional Instructions: Follow-up with your family practice physician or the [facility] physician within about 7 days for probable reevaluation and staple removal. Please take your medicine as needed as directed. Coding Level of Care Code ED Health Information Technician for Deborah Kibmle
[2023-10-05 04:51] LABS: Basophils % 0.4 %; Eosinophils % 0.4 %; Hematocrit 41.8 % (37-53); Lymphocytes # 0.5 10^3/uL (0.8-4.8); Lymphocytes % 6.6 %; Mean Corpuscular HGB Conc 33.7 g/dL (30-55); Mean Corpuscular Hemoglobin 30.7 pg (27-33); Mean Corpuscular Volume 90.9 fl (82-101); Mean Platelet Volume 12.3 fL (7.4-10.4); Monocytes # 0.9 10^3/uL (0.2-0.9); Monocytes % 12.7 %; Neutrophils # 5.63 10^3/uL (1.8-7.7); Neutrophils % 78.6 %; Nucleated Red Blood Cells % 0 %; Platelet Count 183 10^3/cmm (157-399); Red Cell Distribution Width 13.2 % (12.1-15.1); White Blood Count 7.16 10^3/uL (3.29-11.43)
[2023-10-05 05:00] LABS: INR 1.12 (0.8-1.2)
[2023-10-05 05:05] LABS: Alanine Aminotransferase 17 U/L (0-41); Albumin Level 4.1 g/dL (3.5-5.2); Alkaline Phosphatase 79 U/L (40-130); Anion Gap 15.7 (5-19); Aspartate Amino Transferase 18 U/L (0-40); Blood Urea Nitrogen 9 mg/dL (6-20); Calcium 9.6 mg/dL (8.5-10.5); Carbon Dioxide 24 mmol/L (22-29); Chloride 103 mmol/L (98-107); Globulin 2.7 g/dL (1.3-4.6); Glucose 107 mg/dL (65-115); Osmolality Calculated 287 mOsm/kg (285-295); Potassium 3.7 mmol/L (3.5-5.1); Sodium 139 mmol/L (136-145); Total Bilirubin 0.8 mg/dL (0.15-1.2); Total Protein 6.8 g/dL (6.6-8.7)
[2023-10-05 05:12] VITALS: BP 116/47; PULSE 97; O2SAT 100
--- NOTE | 2023-10-05 05:22 | PC.NURSE ---
Dr Bae gave verbal order to put in order for 4mg Zofran IVP once.
[2023-10-05] MEDS: ondansetron 2 mg/ML SDV 2 mL 4 MG IVP (05:25)
[2023-10-05 06:08] VITALS: BP 137/95; PULSE 100; O2SAT 100
[2023-10-05 06:20] VITALS: RESP 18
[2023-10-05] MEDS: morphine 4 mg/mL SDV 1 mL IM (06:20)
== END 2023-10-05 06:50 | disposition home or self-care (01) ==
PROVIDERS: Emergency Provider Emergency Medicine; PCP Family Medicine
DX: S01.01XA Laceration without foreign body of scalp, initial encounter (principal); S06.0XAA Concussion with loss of consciousness status unknown, initial encounter; W01.0XXA Fall on same level from slipping, tripping and stumbling without subsequent striking against object, initial encounter
CPT/HCPCS: 12002; 70450; 72125; 80053; 85025; 85610; 96374; 99285; J2270; J2405

== ENCOUNTER 2023-12-21 20:19 | Emergency (ER) | payer MEDICAID, SELFPAY ==
[2023-12-21 20:43] VITALS: BP 136/90; PULSE 79; RESP 18; TEMP 36.7; O2SAT 97; BMI 56.5
--- NOTE | 2023-12-21 21:08 | ED_ITS ---
Documented by User: ANT Stock 12/21/23 21:24 HPI - General Adult General: Chief complaint: General Medical Stated complaint: Med refill Time Seen by Provider: 12/21/23 20:55 Source: patient Mode of arrival: ambulatory Limitations: no limitations History of Present Illness: Patient is a 33-year-old male who presents to the emergency department needing refill on medications. He states he has a history of seasonal allergies as well as indigestion, and has gone multiple months without taking his prescribed Zyrtec and PPI. He states his symptoms of heartburn and sneezing are the symptoms he has usually, and he denies any new symptoms. He has not seen his primary care provider in years, but states he plans on doing so in the near future to be given prescription for his previously prescribed medications. He denies any fever, breathing difficulties, chest pains, abdominal pain, nausea/vomiting, or any other symptoms. Associated symptoms: Deny chest pain, dyspnea, headache(s), nausea, rash, palpitations or vomiting Review of Systems General: Reports: 10 or more systems reviewed and unremarkable except in HPI and below Const: Denies: fever(s), chills or fatigue Eyes: Denies: change in vision ENMT: Denies: throat pain, ear or mastoid pain or nasal discharge Card: Denies: chest pain, palpitations, swelling of feet/ankles or lightheadedness Resp: Reports: other (Sneezing); Denies: dyspnea, productive cough or wheezing GI: Reports: heartburn; Denies: abdominal pain, nausea, vomiting, diarrhea or constipation : Denies: flank pain, difficulty urinating, dysuria or urinary frequency Musc: Denies: neck pain, back pain or joint pain Skin/Breast: Denies: rash Neuro: Denies: headache(s), numbness in extremities or weakness in extremities PFSH ED PFSH: Medical History Pannus, abdominal Morbid obesity Surgical History Status post colonoscopy (07/06/20) H/O esophagogastroduodenoscopy (07/06/20) Hx of appendectomy History of tonsillectomy and adenoidectomy H/O hemorrhoidectomy H/O circumcision Family History Family/Other Cancer breast cancer Other Anesthesia complication CAD (coronary artery disease) Diabetes Denies family history of Bleeding disorder Social History Alcohol intake: never Substance/Drug Use: never Household members: family Marital status: Single Current occupational status: disabled Physical Exam Const: COMMON NORMALS: no acute distress, patient oriented x3 and no limitations GENERAL APPEARANCE: cooperative, comfortable and well developed NUTRITIONAL APPEARANCE: obese ORIENTATION/CONSCIOUSNESS: Yes awake, Yes oriented to person, Yes oriented to place and Yes oriented to time HENMT: COMMON NORMALS: normocephalic, atraumatic, hearing grossly normal bilaterally, external ears normal, EAC's normal, TM's normal bilaterally, Normal external nose present and Normal nasal mucous membranes and turbinates present HEAD & SCALP: normocephalic and atraumatic FACE & SINUS: normal facial exam and sinuses nontender NOSE: Normal external nose present, Normal nares present, No nasal polyps present and Normal nasal mucous membranes and turbinates present EXTERNAL EAR: Yes external ears normal EXTERNAL AUDITORY CANAL: EAC's normal TYMPANIC MEMBRANE: TM's normal bilaterally MOUTH: Normal oral and palatal mucosa present THROAT: posterior oropharynx normal Eye: COMMON NORMALS: Equal, round and reactive pupils present, EOMs intact bilaterally and conjunctivae normal CONJUNCTIVA: Yes conjunctivae normal PUPIL: Yes Equal, round and reactive pupils present Neck/C-Spine: COMMON NORMALS: full ROM, supple and no JVD Resp: COMMON NORMALS: normal respiratory effort, No retractions, No use of accessory muscles and clear to auscultation bilaterally AUSCULTATION: clear to auscultation bilaterally Cardio: COMMON NORMALS: no JVD, regular rate, regular rhythm, No clicks present (Cardio), No murmurs present (Cardio) and No rub (Cardio) RATE: regular rate RHYTHM: regular rhythm GI: COMMON NORMALS: Normal to inspection, nondistended, normoactive bowel sounds present, Soft to palpation and non-tender PALPATION: Yes Soft to palpation RECTAL EXAM: Yes deferred Extremity: COMMON NORMALS: normal to inspection, full ROM and capillary refill normal Neuro: COMMON NORMALS: patient oriented x3, moves all extremities, no focal motor deficits and no sensory deficits noted SENSORIUM/ORIENTATION: Yes oriented to person, Yes oriented to place and Yes oriented to time Psych: COMMON NORMALS: mental status grossly normal and Normal thought process present THOUGHT PROCESS: Normal thought process present Skin: COMMON NORMALS: no rashes or lesions noted GENERAL SKIN EXAM: no rashes or lesions noted Course Vital Signs: Vital signs: Vital Signs Temperature 98.1 F 12/21/23 21:28 Pulse Rate 82 12/21/23 21:28 Respiratory Rate 16 12/21/23 21:28 Blood Pressure 136/90 12/21/23 21:28 Pulse Oximetry 99 12/21/23 21:28 Oxygen Delivery Me thod Room Air 12/21/23 20:43 MDM - General Adult Medical Decision Making This patient was seen and evaluated in the emergency department today after requesting a medication refill. He states that he voluntarily denied triage because he simply wanted refill on medications and thought this was not necessary. Patient reported to me that he has been having symptoms consistent with his history of allergies and indigestion. Examination unremarkable. I will treat the patient here and sent prescriptions for Zyrtec and Prilosec to [facility] for the patient to fruit picker machine operator tomorrow. Reasons to return are discussed, and patient states he will follow-up with his primary care provider to get long- term care established. Return precautions given. No radiology studies performed this visit Discharge Plan Discharge Patient Disposition: Home Clinical Impression: Seasonal allergies, Chronic heartburn, Medication refill Condition: Stable Prescriptions: New omeprazole 20 mg tablet,delayed release (DR/EC) 20 mg PO DAILY Qty: 30 0RF Zyrtec-D 5-120 mg tablet extended release 12 hr 1 tab PO BID PRN (Reason: allergy symptoms) Qty: 60 0RF No Action omeprazole 20 mg capsule,delayed release(DR/EC) 20 mg PO DAILY@0900 Zyrtec 10 mg Tablet 10 mg PO DAILY docusate sodium 100 mg Capsule 100 mg PO BID Reglan 10 mg tablet 10 mg PO Q6H PRN (Reason: nausea and vomiting) Qty: 20 0RF ondansetron HCl 4 mg tablet 4 mg PO Q8H PRN (Reason: nausea and vomiting) Qty: 14 0RF Discharge Orders: Discharge ED (Routine); Ordered 12/21/23 Ordered By: Alfonzo Nguyen Referrals: Olivia Black DO [Primary Care Provider] - Discharge Diet: Usual diet Discharge Activity: Increase activity as tolerated Patient Instructions: Heartburn, Allergies (ED) Activity Restrictions/Additional Instructions: Take medications as prescribed. Follow-up with your primary care provider. Return with any new or worsening symptoms. Coding Level of Care Code ED Commissioning Agent for Chg Fwd Documented by User: Richard Romero DO 12/22/23 06:31 HPI - General Adult General: Chief complaint: General Medical Stated complaint: Med refill Time Seen by Provider: 12/21/23 20:55 PFSH ED PFSH: Medical History Pannus, abdominal Morbid obesity Surgical History Status post colonoscopy (07/06/20) H/O esophagogastroduodenoscopy (07/06/20) Hx of appendectomy History of tonsillectomy and adenoidectomy H/O hemorrhoidectomy H/O circumcision Family History Family/Other Cancer breast cancer Other Anesthesia complication CAD (coronary artery disease) Diabetes Denies family history of Bleeding disorder Social History Alcohol intake: never Substance/Drug Use: never Household members: family Marital status: Single Current occupational status: disabled Course Vital Signs: Vital signs: Vital Signs Temperature 98.1 F 12/21/23 21:28 Pulse Rate 82 12/21/23 21:28 Respiratory Rate 16 12/21/23 21:28 Blood Pressure 136/90 12/21/23 21:28 Pulse Oximetry 99 12/21/23 21:28 Oxygen Delivery Me thod Room Air 12/21/23 20:43 MDM - General Adult Medical Decision Making This patient was seen and evaluated in the emergency department today after requesting a medication refill. He states that he voluntarily denied triage because he simply wanted refill on medications and thought this was not necessary. Patient reported to me that he has been having symptoms consistent with his history of allergies and indigestion. Examination unremarkable. I will treat the patient here and sent prescriptions for Zyrtec and Prilosec to [facility] for the patient to fruit picker machine operator tomorrow. Reasons to return are discussed, and patient states he will follow-up with his primary care provider to get long- term care established. Return precautions given. Chart reviewed Discharge Plan Discharge Patient Disposition: Home Clinical Impression: Seasonal allergies, Chronic heartburn, Medication refill Condition: Stable Prescriptions: New omeprazole 20 mg tablet,delayed release (DR/EC) 20 mg PO DAILY Qty: 30 0RF Zyrtec-D 5-120 mg tablet extended release 12 hr 1 tab PO BID PRN (Reason: allergy symptoms) Qty: 60 0RF No Action omeprazole 20 mg capsule,delayed release(DR/EC) 20 mg PO DAILY@0900 Zyrtec 10 mg Tablet 10 mg PO DAILY docusate sodium 100 mg Capsule 100 mg PO BID Reglan 10 mg tablet 10 mg PO Q6H PRN (Reason: nausea and vomiting) Qty: 20 0RF ondansetron HCl 4 mg tablet 4 mg PO Q8H PRN (Reason: nausea and vomiting) Qty: 14 0RF Discharge Orders: Discharge ED (Routine); Ordered 12/21/23 Ordered By: Alfonzo Nguyen Referrals: Olivia Black DO [Primary Care Provider] - Discharge Diet: Usual diet Discharge Activity: Increase activity as tolerated Patient Instructions: Heartburn, Allergies (ED) Activity Restrictions/Additional Instructions: Take medications as prescribed. Follow-up with your primary care provider. Return with any new or worsening symptoms. Coding Level of Care Code ED Commissioning Agent for Deborah Kimble
[2023-12-21] MEDS: pantoprazole DR 40 mg Tablet PO (21:23)
[2023-12-21] MEDS: cetirizine 10 mg Tablet PO (21:23)
[2023-12-21 21:28] VITALS: BP 136/90; PULSE 82; RESP 16; TEMP 36.7; O2SAT 99
== END 2023-12-21 21:29 | disposition home or self-care (01) ==
PROVIDERS: Emergency Provider Physician Assistant; PCP Family Medicine
DX: Z76.0 Encounter for issue of repeat prescription (principal); J30.2 Other seasonal allergic rhinitis; R12 Heartburn
CPT/HCPCS: 99283

== ENCOUNTER 2023-12-22 23:50 | Emergency (ER) | payer MEDICAID, SELFPAY ==
[2023-12-22 23:55] VITALS: BP 125/84; PULSE 81; RESP 17; TEMP 36.7; O2SAT 99; BMI 55.7
--- NOTE | 2023-12-23 03:09 | W.ED.GENADLT ---
HPI - General Adult General: Chief complaint: General Medical Stated complaint: STAPLE IN HEAD Time Seen by Provider: 12/23/23 02:28 History of Present Illness: 33-year-old male here for the third time in 24 hours. He presents this morning via ambulance. He complains of a retained staple in his scalp after repair of a laceration sometime ago. he notes that it gives him pain on and off. He denies increased swelling or drainage. He also states that he had a yellow stool today, and would like his liver enzymes checked. Associated symptoms: Deny vomiting Review of Systems Const: Denies: fever(s) GI: Reports: other ( Yellow stool ); Denies: abdominal pain, vomiting or hematochezia : Denies: flank pain PFSH ED PFSH: Medical History Pannus, abdominal Morbid obesity Surgical History Status post colonoscopy (07/06/20) H/O esophagogastroduodenoscopy (07/06/20) Hx of appendectomy History of tonsillectomy and adenoidectomy H/O hemorrhoidectomy H/O circumcision Family History Family/Other Cancer breast cancer Other Anesthesia complication CAD (coronary artery disease) Diabetes Denies family history of Bleeding disorder Social History Alcohol intake: never Substance/Drug Use: never Household members: family Marital status: Single Current occupational status: disabled Physical Exam Const: COMMON NORMALS: no acute distress GENERAL APPEARANCE: disheveled; not ill appearing and not frail appearing HENMT: COMMON NORMALS: normocephalic and Normal external nose present HEAD & SCALP: normocephalic and other (single retained partially buried staple occipital scalp) FACE & SINUS: normal facial exam NOSE: Normal external nose present Eye: COMMON NORMALS: Equal, round and reactive pupils present and EOMs intact bilaterally PUPIL: Yes Equal, round and reactive pupils present Neck/C-Spine: GENERAL: Yes trachea midline Chest: CHEST: Yes Symmetrical chest wall rise Resp: COMMON NORMALS: normal respiratory effort and No use of accessory muscles Neuro: KAVON COMA SCALE: document GCS findings Kavon coma scale eye opening: Spontaneous Kavon coma scale verbal response: Orientated [place] coma scale motor response: Obey commands Kavon coma scale total score: 15 Skin: COMMON NORMALS: no jaundice Course Vital Signs: Vital signs: Vital Signs Temperature 98.1 F 12/22/23 23:55 Pulse Rate 81 12/22/23 23:55 Respiratory Rate 17 12/22/23 23:55 Blood Pressure 125/84 12/22/23 23:55 Pulse Oximetry 99 12/22/23 23:55 Oxygen Delivery Me thod Room Air 12/22/23 23:55 MDM - General Adult Medical Decision Making CMP was ordered on this patient. In the meantime, the skin was prepped with Betadine over the palpable and partially visible retained staple in the scalp. 0.9 mL of 1% lidocaine with epinephrine were injected through an insulin syringe/29-gauge needle for local anesthesia prior to removal attempt. The patient had given his consent for injection of local anesthesia and foreign body removal prior to this. Upon injection of the local anesthesia, the patient states, that is way more than 1 cc of lidocaine . He also states, you better get that needle out of my head . The needle was removed, the patient was shown the 1 cc syringe, and told that it was in fact less than 1 cc of fluid injected. He took offense. I offered to remove the foreign body using a staple remover, and showed him the staple remover. He declined. He was informed that he may leave AGAINST MEDICAL ADVICE if he wished. He elected to do so. He understand the risk of leaving AMA. He attempted to delay his discharge is much as possible, as it is believed he is homeless. No radiology studies performed this visit Discharge Plan Discharge Patient Disposition: Left Against Medical Advice Clinical Impression: Foreign body in skin Condition: Stable Prescriptions: No Action omeprazole 20 mg capsule,delayed release(DR/EC) 20 mg PO DAILY@0900 Zyrtec 10 mg Tablet 10 mg PO DAILY docusate sodium 100 mg Capsule 100 mg PO BID Reglan 10 mg tablet 10 mg PO Q6H PRN (Reason: nausea and vomiting) Qty: 20 0RF ondansetron HCl 4 mg tablet 4 mg PO Q8H PRN (Reason: nausea and vomiting) Qty: 14 0RF omeprazole 20 mg tablet,delayed release (DR/EC) 20 mg PO DAILY Qty: 30 0RF Zyrtec-D 5-120 mg tablet extended release 12 hr 1 tab PO BID PRN (Reason: allergy symptoms) Qty: 60 0RF Referrals: Olivia Black DO [Primary Care Provider] - Patient Instructions: Soft Tissue Foreign Body (ED) Activity Restrictions/Additional Instructions: You have chosen to leave the ER against medical advice. Please seek treament with an appropriate primary care provider for your chronic conditions. Coding Level of Care Code ED Manufacturing Engineering Technologist for Deborah Kimble
--- NOTE | 2023-12-23 03:27 | PC.NURSE ---
Gave pt AMA form to sign, pt took form on clipboard and sat on the ER cot. Nurse gave pt approx 5 min to fill out form, pt then states to nurse that this form is a document and it will take him quite some time to complete a full review of the form . Nurse advised pt that he needs to exit the ER and he can either sign the AMA form or not sign the AMA form but he needs to exit the building. Pt tore up AMA form and stated he would leave. Pt escorted from ER by security
== END 2023-12-23 03:32 | disposition left against medical advice (07) ==
PROVIDERS: Emergency Provider Emergency Medicine; PCP Family Medicine
DX: M79.5 Residual foreign body in soft tissue (principal); Z53.29 Procedure and treatment not carried out because of patient's decision for other reasons
CPT/HCPCS: 99283

== ENCOUNTER 2024-03-04 10:57 | Inpatient (IN) | payer MEDICAID, SELFPAY ==
[2024-03-04 11:02] VITALS: BP 171/122; PULSE 90; RESP 18; TEMP 36.4; O2SAT 99; BMI 29.9
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
--- NOTE | 2024-03-04 11:17 | PC.NURSE ---
Patient came in with [facility] deputies on a court order 96 hour hold. 96 hour hold rights read and reviewed with patient. Patient verbalized understandings and copy of right left with patient.
[2024-03-04] MEDS: ketamine 100 mg/mL Inj 5 mL 330 MG IM (11:28)
--- NOTE | 2024-03-04 11:28 | PC.NURSE ---
PATIENT IS RESISTANT TO CARE AND UNCOOPERATIVE WITH STAFF. PATIENT EXPLAINED RIGHTS BY HOUSE SUP, PHYSICIAN, AND SECURITY. PATIENT REFUSING BLOOD DRAW AND TO CHANGE INTO SCRUBS PER POLICY. PATIENT CONTINUES TO STATE THAT HE WILL [facility] THIS [facility] AND YOU CAN'T TOUCH ME IF I SAY SO. PATIENT RE-EDUCATED BY STAFF. PATIENT CONTINUING TO REFUSE. PROVIDER NOTIFIED. PATIENT EDUCATED THAT CHANGING INTO SCRUBS AND BLOOD DRAW IS PROTOCOL FOR 96 HR HOLD. PATIENT CONTINUES TO REFUSE. PROVIDER ORDERED KETAMINE IM FOR PATIENT SEDATION FOR BLOOD DRAW AND SCRUB CHANGE. SHOTS GIVEN IN RIGHT UPPER ARM AND LEG. PATIENT TO BED AFTER SEDATION. PATIENT PLACED ON PULSE OX FOR MONITORING. PATIENT CHANGED FROM SHOES, PANTS, AND SHIRT INTO GREEN SCRUBS. PATIENT RESPIRATIONS EVEN AND UNLABORED, 98% ON RA, HR 71.
[2024-03-04 11:44] VITALS: PULSE 74; O2SAT 98
--- NOTE | 2024-03-04 11:46 | PC.NURSE ---
PATIENT PLACED ON O2 SENSOR AFTER ADMINISTRATION OF KETAMINE. PATIENT IS 96% ON ROOM AIR.
[2024-03-04 11:54] LABS: Basophils % 0.5 %; Eosinophils # 0.2 10^3/uL (0.0-0.8); Eosinophils % 2.3 %; Hematocrit 43.5 % (37-53); Lymphocytes # 2.3 10^3/uL (0.8-4.8); Lymphocytes % 28.1 %; Mean Corpuscular HGB Conc 33.3 g/dL (30-55); Mean Corpuscular Volume 93.1 fl (82-101); Monocytes # 0.9 10^3/uL (0.2-0.9); Monocytes % 10.8 %; Neutrophils % 58.1 %; Nucleated Red Blood Cells % 0 %; Platelet Count 232 10^3/cmm (157-399); Red Blood Count 4.67 10^6/uL (3.85-5.65); White Blood Count 8.09 10^3/uL (3.29-11.43)
[2024-03-04 12:05] LABS: Alanine Aminotransferase 11 U/L (0-41); Albumin Level 4.2 g/dL (3.5-5.2); Alkaline Phosphatase 71 U/L (40-130); Anion Gap 13.7 (5-19); Aspartate Amino Transferase 11 U/L (0-40); Blood Urea Nitrogen 13 mg/dL (6-20); Calcium 8.6 mg/dL (8.5-10.5); Carbon Dioxide 25 mmol/L (22-29); Chloride 109 mmol/L (98-107); Creatinine Clr Calc Pharmacy 144.9142; Globulin 2.7 g/dL (1.3-4.6); Glomerular Filtration Rate 128.3 mL/min (90-130); Glucose 108 mg/dL (65-115); Osmolality Calculated 297 mOsm/kg (285-295); Potassium 4.7 mmol/L (3.5-5.1); Salicylate 2.1 mg/dL (3-10); Sodium 143 mmol/L (136-145); Total Bilirubin 0.5 mg/dL (0.15-1.2); Total Protein 6.9 g/dL (6.6-8.7)
[2024-03-04 12:06] LABS: Acetaminophen < 5.0 ug/mL (10-30); Alcohol Level < 10 mg/dL (0-10)
--- NOTE | 2024-03-04 13:01 | PC.PHAR ---
PT UNABLE TO VERIFY MEDICATIONS. MED REC COMPLETED WITH CURRENT MED LIST ON FILE.
[2024-03-04 13:33] VITALS: BP 142/89; PULSE 61; O2SAT 97
[2024-03-04 13:39] VITALS: BP 142/89; PULSE 61; RESP 18; TEMP 36.4; O2SAT 97
[2024-03-04 14:23] VITALS: BP 152/94; PULSE 59; RESP 16; TEMP 36.8; O2SAT 99
--- NOTE | 2024-03-04 18:31 | PC.NURSE ---
This nurse attempted to persuade patient to supply a urine sample for a UDS. Patient refused, saying I will not be doing that, thank you. Left a cup at bedside.
[2024-03-04 19:57] VITALS: BP 151/99; PULSE 83; RESP 20; TEMP 36.8; O2SAT 98
[2024-03-05] MEDS: acetaminophen 325 mg Tablet 650 MG PO (05:21)
[2024-03-05 06:00] VITALS: BP 131/84; PULSE 70; RESP 18; TEMP 36.9; O2SAT 97
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
[2024-03-05] MEDS: cetirizine 10 mg Tablet PO (10:18)
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
[2024-03-05 14:00] VITALS: BP 153/85; PULSE 74; RESP 18; TEMP 36.6; O2SAT 99
[2024-03-05 22:00] VITALS: BP 145/96; PULSE 76; RESP 16; TEMP 36.8; O2SAT 97
[2024-03-06 06:00] VITALS: BP 127/76; PULSE 59; RESP 16; TEMP 36.6; O2SAT 97
[2024-03-06] MEDS: cetirizine 10 mg Tablet PO (08:06)
--- NOTE | 2024-03-06 08:35 | PC.NURSE ---
OBSERVED TO BE PARANOID, UNTRUSTING AND INTRUSIVE WITH STAFF. ASKED TO SEE HIS WALLET AND STATES I HAD AN ERASER THAT WAS IN THERE AND NOW ITS NOT. PT HAS ANIMATED SPEECH AND CONFRONTATIONAL WITH STAFF. PT IS ANXIOUS AND AGITATION IS PRESENT WHEN SPEAKING TO STAFF. PT DENIES SI/HI AND AVH AT THIS TIME. PT DECLINES TAKING MEDICATIONS WHILE HE IS HERE STATES THEY DON'T WORK I'VE BEEN ON EVERYTHING THE LAST 10 YEARS AND TOOK MYSELF OFF OF THEM. PT WAS ASKED AGAIN TO GIVE A URINE SAMPLE AND HE DOES CONTINUE TO DECLINE SUBMITTING TO ONE. RATES ANXIETY 01/08 AND DEPRESSION /. DECLINES TAKING ANY ANTI-ANXIETY MEDICATIONS AT THIS TIME. RATES PAIN IN BACK 01/08 BUT AGAIN CONTINUES TO DECLINE MEDICATIONS FOR PAIN RELIEF STATING I WILL RELY ON MY OWN COPING SKILLS THANK YOU. PT IS NOTED BEING IRRITABLE, NEGATIVE AND IMPULSIVE AT TIMES. ALL QUESTIONS ANSWERED AND SUPPORT VOICED.
[2024-03-06 14:00] VITALS: BP 141/84; PULSE 76; RESP 20; TEMP 36.6; O2SAT 99
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
[2024-03-06 19:00] VITALS: BP 145/100; PULSE 68; RESP 18; TEMP 36.7; O2SAT 99
[2024-03-07 06:00] VITALS: BP 126/84; PULSE 67; RESP 18; TEMP 36.6; O2SAT 97
--- NOTE | 2024-03-07 08:17 | PC.NURSE ---
PT DECLINES TAKING ZYRTEC THIS AM. PT WAS ENCOURAGED TO TAKE IT BUT CONTINUES TO DECLINE. ALL QUESTIONS ANSWERED AND SUPPORT VOICED.
--- NOTE | 2024-03-07 08:41 | PC.NURSE ---
PT CURRENTLY DENIES SI/HI/AH/VH AT THIS TIME. PT CURRENTLY ENDORSES DEPRESSION RATING IT A 5/10 ON A 0-10 SCALE WHERE 0 IS NONE AND 10 IS THE WORST POSSIBLE. PT CURRENTLY ENDORSES ANXIETY RATING IT A 2/10 ON THE SAME SCALE PREVIOUS. PT CURRENTLY DENIES NEED FOR PRN MEDICATIONS. PT WAS COOPERATIVE WITH ASSESSMENT AND MEDICATIONS. PT CURRENT NEEDS ARE MET AT THIS TIME.
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
[2024-03-07 12:58] VITALS: BP 126/84; PULSE 67; RESP 18; TEMP 36.6; O2SAT 97
[2024-03-07 14:00] VITALS: BP 129/82; PULSE 67; RESP 16; TEMP 36.6; O2SAT 100
== END 2024-03-07 18:07 | disposition home or self-care (01) | DRG 885 ==
LOC: ER 11:44 → NP 12:41
PROVIDERS: Admitting Provider Psychiatry & Neurology Psychiatry; Emergency Provider Emergency Medicine; PCP Family Medicine; Visit Provider Psychiatry & Neurology Psychiatry
DX: F23 Brief psychotic disorder (principal); Z59.02 Unsheltered homelessness; F32.A Depression, unspecified; F84.0 Autistic disorder; Z63.9 Problem related to primary support group, unspecified; Z62.820 Parent-biological child conflict
CPT/HCPCS: 36415; 80053; 80307; 85025; 96372; 97150; 97165; 99285; J3490; Q0162

== ENCOUNTER 2024-06-27 19:02 | Emergency (ER) | payer MEDICAID, SELFPAY ==
[2024-06-27 19:05] VITALS: BP 136/84; PULSE 55; RESP 18; TEMP 36.6; O2SAT 100; BMI 56.5
--- NOTE | 2024-06-27 19:35 | XRR_ITS ---
PROCEDURE INFORMATION: Exam: XR Abdomen Exam date and time: 06/27/2024 8:06 PM Age: 34 years old Clinical indication: Abdominal pain; Generalized; Additional info: Abd pain TECHNIQUE: Imaging protocol: Radiologic exam of the abdomen. Views: Frontal supine view of the abdomen. 1 View. COMPARISON: CT abdomen pelvis con [id number] 08/10/2022 3:07 AM FINDINGS: Gastrointestinal tract: Mild constipation without bowel dilation to indicate obstruction. Bones/joints: Unremarkable. XR/XR KUB [id number] IMPRESSION: Mild constipation without bowel dilation to indicate obstruction.
[2024-06-27 20:00] VITALS: BP 144/87; PULSE 62; O2SAT 98
--- NOTE | 2024-06-27 20:47 | ED_ITS ---
HPI - Abdominal Pain 2 General: Chief Complaint: Abdominal Pain Stated Complaint: Recatal pain when using ther bathroom Time Seen by Provider: 06/27/24 19:07 History of Present Illness: 34-year-old male patient comes in today for complaints of left lower abdominal discomfort while having a bowel movement. Patient reported a small amount of stool was passed and he was concerned he may have had a bowel rupture. Patient appears nontoxic. Patient appears in no pain. Related Data Previous Rx's Medication Instructions Recorded ondansetron HCl 4 mg tablet 4 mg PO Q8H PRN nausea and 10/05/23 vomiting #14 tabs cetirizine 10 mg tablet (Zyrtec) 10 mg PO DAILY #30 tabs 01/13/24 omeprazole 20 mg tablet,delayed 20 mg PO DAILY #30 tabs 01/13/24 release Allergies Allergy/AdvReac Type Severity Reaction Status Date / Time promethazine Allergy ALGY-Anaphy Verified 01/13/24 13:48 laxis trazodone Allergy Unknown Verified 01/13/24 13:48 Review of Systems 2 General: Reports: 10 or more systems reviewed and unremarkable except in HPI and below GI: Reports: abdominal pain PFSH ED 2 PFSH: Medical History Pannus, abdominal Morbid obesity Surgical History Status post colonoscopy (07/06/20) H/O esophagogastroduodenoscopy (07/06/20) Hx of appendectomy History of tonsillectomy and adenoidectomy H/O hemorrhoidectomy H/O circumcision Family History Family/Other Cancer breast cancer Other Anesthesia complication CAD (coronary artery disease) Diabetes Denies family history of Bleeding disorder Social History Alcohol intake: never Substance/Drug Use: never Household members: family Marital status: Single Current occupational status: disabled Physical Exam 2 Const: COMMON NORMALS: alert HENMT: COMMON NORMALS: normocephalic HEAD & SCALP: normocephalic Neck/C-Spine: COMMON NORMALS: full ROM Resp: COMMON NORMALS: normal respiratory effort Cardio: COMMON NORMALS: regular rate RATE: regular rate GI: COMMON NORMALS: Soft to palpation PALPATION: Yes Soft to palpation and No Tenderness to palpation present (GI) Back/Pelvis: COMMON NORMALS: thoracic and lumbar spine normal to inspection Extremity: COMMON NORMALS: full ROM Neuro: SENSORIUM/ORIENTATION: Yes alert Skin: COMMON NORMALS: turgor normal GENERAL SKIN EXAM: turgor normal Course 2 Vital Signs: Vital signs: Vital Signs Temperature 97.9 F 06/27/24 19:05 Pulse Rate 62 06/27/24 20:00 Respiratory Rate 18 06/27/24 19:05 Blood Pressure 144/87 06/27/24 20:00 Pulse Oximetry 98 06/27/24 20:00 Oxygen Delivery Me thod Room Air 06/27/24 20:00 MDM - Abdominal Pain Medical Decision Making Patient comes in today for complaints of left lower abdominal pain. On exam patient appears nontoxic. Patient appears in no acute distress. Respirations are even lungs are clear to auscultation. Abdomen soft nontender. Skin is warm and dry. Vital signs are normal. Differential diagnosis constipation, malingering, colitis, diverticulitis. KUB noted constipation but no signs of obstruction. CBC CMP was unremarkable. Patient was recommended to follow-up with primary care. Patient was given a dose of milk of magnesia and Constulose for constipation. Lab Data 06/27/24 21:01 06/27/24 21:01 Labs/Radiology: Radiology Impressions KUB X-Ray 06/27/24 19:35 IMPRESSION: Mild constipation without bowel dilation to indicate obstruction. Laboratory Results WBC 9.32 10^3/uL (3.29-11.43) 06/27/24 21:01 RBC 4.45 10^6/uL (3.85-5.65) 06/27/24 21:01 Hgb 13.60 g/dL (11.27-16.99) 06/27/24 21:01 Hct 41.2 % (37-53) 06/27/24 21:01 MCV 92.6 fl (82-101) 06/27/24 21:01 MCH 30.6 pg (27-33) 06/27/24 21: MCHC 33.0 g/dL (30-55) 06/27/24 21:01 RDW 12.9 % (12.1-15.1) 06/27/24 21:01 Plt Count 213 10^3/cmm (157-399) 06/27/24 21:01 MPV 10.8 fL (7.4-10.4) H 06/27/24 21:01 Neut % (Auto) 67.0 % 06/27/24 21:01 Lymph % (Auto) 22.6 % 06/27/24 21:01 Meagher % (Auto) 7.9 % 06/27/24 21:01 Eos % (Auto) 1.7 % 06/27/24 21:01 Baso % (Auto) 0.5 % 06/27/24 21:01 Neut # (Auto) 6.23 10^3/uL (1.8-7.7) 06/27/24 21:01 Lymph # (Auto) 2.1 10^3/uL (0.8-4.8) 06/27/24 21:01 [place]agher # (Auto) 0.7 10^3/uL (0.2-0.9) 06/27/24 21:01 Eos # (Auto) 0.2 10^3/uL (0.0-0.8) 06/27/24 21:01 Baso # (Auto) 0.1 10^3/uL (0.0-0.1) 06/27/24 21:01 Nucleated RBC % (auto) 0 % 06/27/24 21:01 Nucleated RBCs # 0.0 /100WBC 06/27/24 21:01 Sodium 140 mmol/L (136-145) 06/27/24 21:01 Potassium 4.2 mmol/L (3.5-5.1) 06/27/24 21:01 Chloride 104 mmol/L (98-107) 06/27/24 21:01 Carbon Dioxide 27 mmol/L (22-29) 06/27/24 21:01 Anion Gap 13.2 (5-19) 06/27/24 21:01 BUN 12 mg/dL (6-20) 06/27/24 21:01 Creatinine 0.7 mg/dL (0.7-1.2) 06/27/24 21:01 GFR Calculation 127.6 mL/min (90-130) 06/27/24 21:01 Glucose 83 mg/dL (65-115) 06/27/24 21:01 Calculated Osmolality 289 mOsm/kg (285-295) 06/27/24 21:01 Calcium 9.4 mg/dL (8.5-10.5) 06/27/24 21:01 Total Bilirubin 0.7 mg/dL (0.15-1.2) 06/27/24 21:01 AST 13 U/L (0-40) 06/27/24 21:01 ALT 9 U/L (0-41) 06/27/24 21:01 Alkaline Phosphatase 52 U/L (40-130) 06/27/24 21:01 Total Protein 7.0 g/dL (6.6-8.7) 06/27/24 21:01 Albumin 4.2 g/dL (3.5-5.2) 06/27/24 21:01 Globulin 2.8 g/dL (1.3-4.6) 06/27/24 21:01 Lipase 20 U/L (13-60) 06/27/24 21:01 All radiology interpretation(s) finalized by discharge Discharge Plan Discharge Patient Disposition: Home Clinical Impression: Constipation Qualifiers: Constipation type: unspecified constipation type Qualified Code(s): K59.00 - Constipation, unspecified Condition: Stable Prescriptions: No Action omeprazole 20 mg tablet,delayed release (DR/EC) 20 mg PO DAILY Qty: 30 0RF cetirizine [Zyrtec] 10 mg tablet 10 mg PO DAILY Qty: 30 0RF ondansetron HCl 4 mg tablet 4 mg PO Q8H PRN (Reason: nausea and vomiting) Qty: 14 0RF Discharge Orders: Discharge ED (Routine); Ordered 06/27/24 Ordered By: Cj Sagastume Referrals: Olivia Black DO [Primary Care Provider] - Discharge Diet: Usual diet Discharge Activity: Increase activity as tolerated Patient Instructions: Constipation (ED) Activity Restrictions/Additional Instructions: Home and rest, drink plenty of fluids. Follow-up with primary care, REturn to ER for high fever, blood in vomit or stool, or new concerns Coding Level of Care Code ED Tractor Expert for Deborah Kimble
[2024-06-27 21:16] LABS: Basophils # 0.1 10^3/uL (0.0-0.1); Basophils % 0.5 %; Eosinophils # 0.2 10^3/uL (0.0-0.8); Eosinophils % 1.7 %; Hematocrit 41.2 % (37-53); Lymphocytes # 2.1 10^3/uL (0.8-4.8); Lymphocytes % 22.6 %; Mean Corpuscular Hemoglobin 30.6 pg (27-33); Mean Corpuscular Volume 92.6 fl (82-101); Mean Platelet Volume 10.8 fL (7.4-10.4); Monocytes # 0.7 10^3/uL (0.2-0.9); Monocytes % 7.9 %; Neutrophils # 6.23 10^3/uL (1.8-7.7); Nucleated Red Blood Cells % 0 %; Platelet Count 213 10^3/cmm (157-399); Red Blood Count 4.45 10^6/uL (3.85-5.65); Red Cell Distribution Width 12.9 % (12.1-15.1); White Blood Count 9.32 10^3/uL (3.29-11.43)
[2024-06-27 21:33] LABS: Alanine Aminotransferase 9 U/L (0-41); Albumin Level 4.2 g/dL (3.5-5.2); Alkaline Phosphatase 52 U/L (40-130); Anion Gap 13.2 (5-19); Aspartate Amino Transferase 13 U/L (0-40); Blood Urea Nitrogen 12 mg/dL (6-20); Calcium 9.4 mg/dL (8.5-10.5); Carbon Dioxide 27 mmol/L (22-29); Chloride 104 mmol/L (98-107); Globulin 2.8 g/dL (1.3-4.6); Glomerular Filtration Rate 127.6 mL/min (90-130); Glucose 83 mg/dL (65-115); Lipase 20 U/L (13-60); Osmolality Calculated 289 mOsm/kg (285-295); Potassium 4.2 mmol/L (3.5-5.1); Sodium 140 mmol/L (136-145); Total Bilirubin 0.7 mg/dL (0.15-1.2)
[2024-06-27 21:51] VITALS: BP 124/68; PULSE 57; O2SAT 97
== END 2024-06-27 21:53 | disposition home or self-care (01) ==
PROVIDERS: Emergency Provider Nurse Practitioner Family; PCP Family Medicine
DX: K59.00 Constipation, unspecified (principal)
CPT/HCPCS: 74018; 80053; 83690; 85025; 99284